=== PATIENT | male | born 1955 | race Caucasian/White ===

== ENCOUNTER 2018-07-11 05:14 | Inpatient (IN) | payer OTHER, SELFPAY ==
[2018-07-05 14:26] VITALS: BP 125/90; PULSE 59; RESP 16; TEMP 36.6; O2SAT 95; BMI 33.2
--- NOTE | 2018-07-05 14:34 | SDCEKG_ITS ---
Test Reason : Blood Pressure : / mmHG Vent. Rate : 059 BPM Atrial Rate : 059 BPM P-R Int : 208 ms QRS Dur : 100 ms QT Int : 408 ms P-R-T Axes : 015 -34 009 degrees QTc Int : 403 ms Poor data quality, interpretation may be adversely affected Sinus bradycardia Left axis deviation Incomplete right bundle branch block Abnormal ECG Confirmed by ARABELLA MAN, BECKIE ([id number]), manuscript editor JAIRO HERRERA ([id number]) on 07/10/2018 8:18:41 AM Referred By: Abad Silver Confirmed By:BECKIE BELL MD
[2018-07-05 15:06] LABS: Absolute Lymphocyte Count 2.27 X10^3/ul (0.83-4.51); Absolute Neutrophil Count 3.6 X10^3/uL (2.0-7.7); Basophil# 0.04 X10^3/uL; Basophil% 0.6 % (0-1); Eosinophil# 0.21 X10^3/uL; Eosinophils% 3.1 % (0-5); Hematocrit 40.8 % (40-54); Hemoglobin 13.5 g/dl (13.0-16.5); Lymphocyte # 2.27 X10^3/ul (4.0); Lymphocyte % 33.4 % (19-41); Mean Corp Hgb Conc 33.1 g/gl (32-36); Mean Corpuscular Hgb 30.3 pg (27.0-32.0); Mean Corpuscular Volume 91.7 fL (80-94); Mean Platelet Vol. 9.7 fl (6.2-12.0); Monocyte# 0.64 X10^3/uL; Monocyte% 9.4 % (0-10); Neutrophil # 3.63 X10^3/uL (2.7-7.7); Neutrophil % 53.4 % (47-70); POSITIVE COUNT NO; POSITIVE DIFFERENTIAL NO; POSITIVE MORPHOLOGY NO; Platelet Count 230 K/mm3 (150-450); RBC Distribution Width CV 14.8 % (11.6-14.6); RBC Distribution Width SD 48.6 fl (35.1-43.9); Red Blood Count 4.45 M/mm3 (4.6-6.2); White Blood Count 6.8 K/mm3 (4.4-11.0)
[2018-07-05 15:13] LABS: International Normalized Ratio 1.1; Prothrombin Time (Protime)PT. 13.8 SECONDS (11.7-14.9)
[2018-07-05 15:14] LABS: Partial Thromboplast Time 30.1 Seconds (24.1-36.2)
[2018-07-05 15:37] LABS: AST(SGOT) 19 U/L (15-37); Alanine Aminotransfer ALT/SGPT 23 U/L (16-61); Albumin, Serum 3.6 g/dL (3.2-5.0); Alkaline Phosphatase 73 U/L (45-117); Anion Gap 9 (5-15); BUN 17 mg/dL (7-18); BUN/Creat Ratio 15.7 RATIO (10-20); Bilirubin, Direct 0.11 mg/dL (0.00-0.30); Chloride 109 mmol/L (98-107); Creatinine, Serum 1.08 mg/dL (0.70-1.30); EST Glomerular Filtration Rate 74 mL/min (>60); Est Glom Filt Rate - Afr Amer 89 mL/min (>60); Estimated Creatinine Clearance 64.82 ml/min; Globulin 3.7 g/dL (2.2-4.2); Glucose 85 mg/dL (74-106); Protein, Total 7.3 g/dL (6.4-8.2); Sodium Level 143 mmol/L (136-145)
--- NOTE | 2018-07-05 17:04 | HP.PCM_ITS ---
History and Physical DATE OF SURGERY: 07/11/2018 SCHEDULED PROCEDURE: left total hip arthroplasty HISTORY OF PRESENT ILLNESS: This is a 63-year-old male who presents today for ongoing pain in the left hip. Pain is being going on for the past 1 year. Pain can reach his high as a 7/10 with activity. Pain is aching and sharp. He has increased pain going up and down stairs, walking any amount of distance, and getting dressed. Patient states the pain does wake him at night. He complains of pain in the left groin and anterior thigh. He does have start up pain. Patient states she has difficult time with activities of daily living including bathing/showering, getting dressed, housework, shopping. He has tripped and stumbled secondary to his left hip. He feels unsafe riding his motorcycle. Patient has tried conservative measures consisting of rest, ice, heat, elevation with no relief in symptoms. Patient has had previous cortisone injection with no relief. Injection was at [facility] on April 02, 2018. Patient has been through physical therapy and home exercises with no relief in symptoms. He has tried emergency care tech without any relief. Patient denies previous surgery on the left hip. He has used a cane on occasion due to the pain. Patient currently denies any chest pain, shortness of breath, fevers chills. Patient has had a previous lumbar fusion in 2018. Patient has medical history pertinent for COPD. He currently denies chest pain, shortness of breath, fevers chills, recent infections. We are obtaining surgical clearance from the primary care physician. After failing conservative measures and discussing treatment options with Dr. Abad Silver, the patient would like to proceed with a left total hip arthroplasty. REVIEW OF SYSTEMS: ROS: Const: Denies change in appetite, fever, hard of hearing, vision problems and weight change CV: Denies chest pain, heart murmur, irregular heartbeat and peripheral vascular disease. Resp: Denies asthma, cough, pneumonia, sleep apnea, shortness of breath, tuberculosis and wheezing. GI: Denies constipation, diarrhea, heartburn, nausea, rectal itching, bloody st ools and vomiting. : Denies incontinence. Musculo: Denies leg swelling, pain, trouble walking and weakness. Skin: Denies Raynaud's, history of shingles and tattoo. Neuro: Denies ambulatory dysfunction, dizziness, numbness/tingling and tremor. Psych: Denies anxiety, depression, insomnia, mental illness and stress. Amandeep/Lymph: Denies anemia, bleeding/bruising tendency and past transfusion. Reviewed, no changes. PAST MEDICAL HISTORY: Advance Care Plan: Other Directive, LIVING WILL Effective Date: 05/17/2018 PMH: Medical Problems: COPD Accidents: LT Shoulder Injury - (06/2014) WORK RELATED Surgical Hx: LT Shoulder Arthoroscopy Lumbar Fusion L3-L4 - (11/2017) [facility] Anesthesia Complications: None Assistive Devices: Glasses Reviewed and updated. SOCIAL HISTORY: SH: Marital: .Occupation: Retired.Work Status: Retired.Hand Dominance: Left- handed. Personal Habits: Smoking: Patient smoking status is unknown.Cigarette Use: Snuff.Smokeless Tobacco: Never Used Smokeless Tobacco.E-Cigarette Use: Never used.Alcohol: Occasionally.Drug Use: Denies Use.Enjoy Exercising: Never Exercises. Reviewed and updated. VITALS: Ht: 66 Wt: 202lb Wt k.627 BMI: 32.6 BP: 122/68 Pulse: 64 Resp: 16 T: 97.5 T: 36.4C ALLERGIES: Adivan - Hallucination Percocet - Hives MEDICATIONS: Ventolin HFA 108 (90 Base) mcg/Act prn wheezi ng, Advair Diskus 250-50 mcg/Dose 1 puff bid PRE-OP EXAM: General appearance:NORMAL Other: Eyes: Conjunctivae and lids: NORMAL Pupils: ERR Ears, Nose, Mouth, and Throat: NORMAL Other: Inspection of lips, teeth and gums: NORMAL Other: Neck: Examination of neck: no masses noted. Respiratory: Assessment of respiratory effort: NORMAL Other: Auscultation of lungs: clear to auscultation no wheezes, rhonchi or rales. Cardiovascular: Auscultation of heart: regular rate and rhythm, no murmurs, gallops or rubs. Exam of carotid arteries: NORMAL Other: Gastrointestinal: Exam of abdomen: soft, nontender, nondistended bowel sounds present. PHYSICAL EXAMINATION: Patient does walk with an antalgic gait. There is no tenderness to palpation over the greater trochanter left hip. Range of motion left hip: Flexion 90, internal rotation 5, external rotation 15. There is increased pain with range of motion of left hip. Patient has a 5 mm shorter leg on the left. Sensation intact to light touch. Neurovascularly intact. IMAGING STUDIES: X-rays of the left hip reveal joint space narrowing with subchondral sclerosis and osteophyte formation consistent with severe osteoarthritis. Screws are present from the L3-L4 fusion. IMPRESSION: 1. Left hip osteoarthritis 2. Chronic obstructive pulmonary disease 3. History of lumbar fusion PLAN: Dr. Abad Silver did discuss and review with the patient all treatment options including surgical versus nonsurgical options. Patient does wish to proceed with the above-stated procedure. Potential risks, benefits, and complications of the procedure were discussed in detail including but not limited to , infection, nerve and blood vessel damage, persistent pain, numbness, tingling, paresthesias, blood clot, pulmonary embolism, and requirement for possible further surgery. The patient expressed full understanding and has no further questions for the doctor. Patient does agree to proceed with the above-stated procedure and has signed the surgery consent form. This dictation was created using voice recognition software. Phonetic and/or grammatical errors may exist.. ___ I have re-examined the patient. There are no clinical changes since date of exam. ___ See progress notes for changes. ___ Dictated on admission Date: Time: Signature:
--- NOTE | 2018-07-06 14:08 | CASEMGMT ---
Call placed to patient's cell phone to discuss discharge needs after upcoming surgery, spoke with , Karina. Patient's plan is to return home, will be taking time off work to help care for patient. Patient plans to set up outpatient physical therapy at [facility], patient is interested in in-home therapy for the first few weeks. can assist with transportation as long as it's outside of her work hours once she returns to work. Bedroom and bathroom are on the 1st level of the home. Patient has a walker, there's a walk-in shower with a built in seat. There are 3 steps into home from garage. Informed that RN-CM will follow up with patient after surgery. Celeste Jensen LPN Clinical Support
[2018-07-11] VITALS (11 sets, daily range): BP systolic 95–145; BP diastolic 60–92; PULSE 59–99; RESP 16–18; TEMP 36–36.8; O2SAT 93–99; BMI 33.2
[2018-07-11] MEDS: Acetaminophen 500 MG Tablet 1000 MG PO ×3 (05:45→21:25)
[2018-07-11] MEDS: morphine SR 15 MG Tablet PO (05:53)
[2018-07-11] MEDS: Celecoxib 200 MG Capsule 400 MG PO (05:53)
[2018-07-11] MEDS: Lactated Ringers 1,000 ML 999 ML IV ×2 (06:15→08:00)
--- NOTE | 2018-07-11 07:12 | RAD_ITS ---
STUDY: X-RAY - LEFT HIP REASON FOR EXAM: Male, 63 years old. Replacement TECHNIQUE: 3 intraoperative views of the hip. COMPARISON: None. FINDINGS: 3 limited intraoperative views of the left hip were performed as the patient has undergone replacement surgery. Components demonstrate anatomic alignment. RAD/Hip 1 view with Pelvis IMPRESSION: Limited intraoperative views of the left hip show no suspicious findings Electronically Signed: Eric Lao MD at 11:28 EST , Service support ,
[2018-07-11] MEDS: Cefazolin 2 GM in 0.9% Normal Saline 100 ML IV (07:25)
--- NOTE | 2018-07-11 08:58 | OP.PCM_ITS ---
Report of Operation Date of Procedure: 07/11/18 Pre-Operative Diagnosis: Left hip primary osteoarthritis Post-Operative Diagnosis: Left hip primary osteoarthritis Surgery/Procedure Performed:: Left direct anterior total hip replacement Description of Surgical Findings:: Stable hip equal leg lengths fruit grading supervisor: Gretchen Martínez Type of Anesthesia:: Spinal Anesthesiologist: Rafa Thakur Special Medications: 2 g Ancef, 1 g TXA at incision, 1 g TXA closure, 10 mg Decadron, joint cocktail (5 mg Duramorph, 30 mL of 0.5% Ropivicaine, 1000 units of epinephrine, 30 mg of Toradol) Estimated Blood Loss (mL): 200 mL Fluids Replaced: 1700 mL crystalloid Description of Procedure: Components used: 1. Accolade 2 [place] femoral stem size 4 127? 2. Jocelyne trident 2 acetabular shell size 54 mm 3. [place] X3 polyethylene E 4. Jocelyne Biolox delta 36mm, 0mm femoral head Brief history operative indications: 63 yo M who failed conservative measures for their hip osteoarthritis. X-rays were consistent with osteoarthritis including joint space narrowing, osteophyte formation and subchondral cysts. Total hip replacement was discussed with the patient with risks and benefits including but not limited to blood loss, DVTs, PEs, neurovascular damage, dislocation, general risks of anesthesia including loss of life. Patient demonstrated an understanding medical clearance is obtained the patient was consented for surgery. Procedure: On the date of procedure the patient's L hip was marked in the preoperative area. Patient was then taken back to the operating room where anesthesia assumed control of the C-spine and airway and administered anesthetic. Patient was transferred to the operating table and placed in the supine position. The hips were placed at the break of the bed and a sacral bump was placed. The L lower extremity was then prepped out in a sterile fashion using chlorhexidine while the surgeon scrubbed. The PA was vital in the positioning of the patient. Upon reentering the room the L lower extremity was draped in the standard orthopedic fashion and the incision was marked. A timeout was called and everyone agreed upon the side, the site, the procedure be performed, antibody given, and patient's identity. At this time incision was made through skin, subcutaneous tissue, and fat down to fascia. The fascia was then incised and the TFL was retracted laterally. A retractor was placed on the lateral border of the femoral neck. Attention was directed to the inferior portion of the approach and all crossing vessels were identified and appropriately coagulated. A retractor was then placed on the medial portion of the femoral neck. The anterior capsule was then cleared of all soft tissue and then H shaped capsulotomy was made. The retractors were then placed inside the capsule. The femoral neck was identified and a cleanup cut was made. At this time a power corkscrew was used to remove the femoral head. Attention was then turned toward the acetabulum where the soft tissues were appropriately retracted and the acetabulum was sequentially reamed to 54 mm. A 54 mm cup was then selected and impacted into place. Acetabular liner was impacted into place and locking mechanism was verified. The position of the acetabular cup was then verified under live fluoroscopy. Attention was then turned to the femur. Soft tissue releases on the medial and lateral femoral neck were appropriately done, the leg was externally rotated and lateralized. A Russell retractor was placed medially and proximally to the greater trochanter this allowed appropriate visualization and exposure of the femoral canal. Rongeour was then used to remove excess lateral bone. A canal finder and entry broach were used to open the proximal canal. Once we verified we were down the femoral canal we subsequently broached up to a size 4 femur. The appropriate neck was placed in the previously selected head was trialed with a 0 mm neck. Traction was pulled and the hip was reduced with internal rotation. Once it was appropriately reduced and stability was checked. There was minimal shuck, equal leg lengths and appropriate stability with hyperextension and external rotation as well as with 90? flexion and internal rotation. Fluoroscopy was then also used to verify the position of the components and leg lengths using the contralateral side for comparison. The trial components were then dislocated the proximal femur was again exposed and the components were removed from the wound. The final components were verified and opened. The wound was copiously irrigated out with normal saline. The acetabulum was checked for any residual debris. The final components were placed and impacted. Traction and internal rotation were again used to reduce the hip. After adequate reduction the hip remained stable with appropriate leg lengths. The final components were once again checked with live fluoroscopy and were found to be satisfactory. The wound was then copiously irrigated with normal saline once more, and hemostasis was obtained. Closure was then done using #1 Vicryl runner to close the fascia. A 2-0 vicryl interuppted sutures were used to close the subcutaneous skin. A 3-0 Monocryl and Steri-Strips were used for final skin closure. A Silverlon dressing was placed. Patient was awakened by anesthesia and transferred to the [facility]. Patient was then transferred to the PACU for recovery. Postoperative plan: Patient will get 24 hours postop antibiotics. Patient will get in-house physical therapy and will be weight-bear as tolerated. Patient will follow up in office in 2 weeks for a wound check and x-rays. Grafts/Implants Used: Jocelyne Accolade 2, Trident 2 - Complications None - Admit VTE Documentation VTE Present on Admission: No VTE Mechan Device Prophylaxis: SCD's, Thigh High RIA Hose VTE Pharm Prophylaxis ordered?: Yes
--- NOTE | 2018-07-11 09:35 | RAD_ITS ---
STUDY: X-RAY - LEFT HIP REASON FOR EXAM: Male, 63 years old. Left hip replacement. TECHNIQUE: 2 views of the hip. COMPARISON: Comparison is made with prior study done earlier today. FINDINGS: The patient is status post left total hip replacement. There is good alignment. Postoperative soft tissue changes. RAD/Hip Min 2 Views (Portable) IMPRESSION: Status post left total hip replacement. There is good alignment. Electronically Signed: Fabricio Do MD at 13:24 EST , Service support ,
[2018-07-11] MEDS: Scopolamine 1mg/72hr Patch 1 PATCH TD (09:43)
[2018-07-11] MEDS: Lactated Ringers 1,000 ML 125 ML IV ×2 (11:25→23:32)
--- NOTE | 2018-07-11 12:15 | CASEMGMT ---
Addendum entered by Kinsey Warren 07/11/18 18:08: Discussed HHC with pt/. They state do not want HHC at this time, stating prefer to do Out-pt therapy instead. Original Note: RN [facility] DIRECTOR CM to room to meet with patient for initial transition planning/care coordination assessment. IZZY ARRIAGA introduced self and role at [facility].? Pt voices understanding and consents to assessment at this time.? Pt resting in bed in no distress at this time.? Pt is A/O at this time and answers all questions appropriately.?? Care providers, pharmacy, and demographics verified/updated at this time. PCP: CRISTOBAL Barnes Specialists: Nadeem Johnson Pharmacy: [facility] Retail on day of discharge, [address] [place]. Insurance: [employer] Prescription Benefit:? Yes Living Will/HPOA:? Has HCPOA, who is his , Karina. Does not have LW and is not interested in further information or talking w/ SW. Living Arrangements: Lives with his . Was independent @ home prior to admission. Transportation: able to provide transportation and denies transportation concerns. DME: ? States has the following DME:? Cane and walker ?Pt states no need for further DME at this time.? Pt wishes to return home and wishes to go to Out-pt therapy @ [facility] in [place]. states pt already has an appt on Monday @ 2 PM. CM to obtain script for Out-pt PT/OT and to give to pt/. States has no concerns with going home at time of discharge.? CM to follow for any further discharge planning/needs.? Pt voices no further concerns/needs at this time.? Advised pt to ask for CM if any further questions/concerns/needs arise.? Voices understanding. PLAN: ?Home with Out-pt therapy PT/OT. Karyn VERDUZCO RN, CM
[2018-07-11] MEDS: traMADol 50 MG Tablet PO (13:28)
[2018-07-11] MEDS: Famotidine 20 MG Tablet PO (13:29)
[2018-07-11] MEDS: Multivitamins,Therapeutic Tablet 1 TABLET PO (13:29)
[2018-07-11] MEDS: Senna/Docusate Sodium 1 Tablet 2 TABLET PO ×2 (13:29→21:26)
--- NOTE | 2018-07-11 14:02 | CPS ---
started by nursing
[2018-07-11] MEDS: Cefazolin 1 GM/50 ML BAG IV ×2 (15:26→23:32)
[2018-07-11] MEDS: Aspirin 81 MG TAB.CHEW PO (15:32)
[2018-07-12 02:55] VITALS: BP 106/65; PULSE 75; RESP 16; TEMP 36.4; O2SAT 94
[2018-07-12] MEDS: Acetaminophen 500 MG Tablet 1000 MG PO ×2 (05:57→13:14)
[2018-07-12 06:26] LABS: Anion Gap 8 (5-15); BUN 21 mg/dL (7-18); BUN/Creat Ratio 17.8 RATIO (10-20); Calcium,Total 8.7 mg/dL (8.5-10.1); Chloride 107 mmol/L (98-107); Creatinine, Serum 1.18 mg/dL (0.70-1.30); EST Glomerular Filtration Rate 67 mL/min (>60); Est Glom Filt Rate - Afr Amer 81 mL/min (>60); Estimated Creatinine Clearance 59.32 ml/min; Glucose 121 mg/dL (74-106); Hematocrit 36.4 % (40-54); Hemoglobin 11.7 g/dl (13.0-16.5); Mean Corp Hgb Conc 32.1 g/gl (32-36); Mean Corpuscular Hgb 30.2 pg (27.0-32.0); Mean Corpuscular Volume 94.1 fL (80-94); Mean Platelet Vol. 10.3 fl (6.2-12.0); Platelet Count 209 K/mm3 (150-450); Potassium 4.4 mmol/L (3.5-5.1); RBC Distribution Width CV 14.7 % (11.6-14.6); RBC Distribution Width SD 47.8 fl (35.1-43.9); Red Blood Count 3.87 M/mm3 (4.6-6.2); Sodium Level 140 mmol/L (136-145); White Blood Count 15.8 K/mm3 (4.4-11.0)
[2018-07-12 06:28] LABS: Scan Indicated on CBC? Y/N NO
[2018-07-12] MEDS: Aspirin 81 MG TAB.CHEW PO (08:51)
[2018-07-12] MEDS: Multivitamins,Therapeutic Tablet 1 TABLET PO (08:52)
[2018-07-12] MEDS: Meloxicam 7.5 MG Tablet PO (08:52)
[2018-07-12] MEDS: Famotidine 20 MG Tablet PO (08:52)
[2018-07-12] MEDS: Senna/Docusate Sodium 1 Tablet 2 TABLET PO (08:52)
[2018-07-12 09:00] VITALS: BP 107/62; PULSE 76; RESP 18; TEMP 36.5; O2SAT 96
--- NOTE | 2018-07-12 09:26 | PCM.PN.ORT ---
Subjective: The patient was sitting in bed with family present upon examination. Patient denies any chest pain, shortness of breath, dizziness, lightheadedness, nausea or vomiting, or calf pain. Pain is controlled on medications. No adverse overnight events. Overall patient is doing very well. He has been up walking and tolerated occupational therapy very well. Patient is wishing to go home today. Objective: Vital signs stable and afebrile. Patient is able to plantarflex and dorsiflex actively. Sensation is intact to light touch to saphenous, sural, superficial and deep peroneal, and tibial distribution. Dressing is clean dry and intact. Negative Homans bilaterally, negative signs and symptoms of DVT. - Physical Exam General: Alert, Oriented x3, Cooperative, No apparent distress Vital Signs Temp Pulse Resp BP Pulse Ox 97.5 F L 75 16 106/65 94 07/12/18 02:55 07/12/18 02:55 07/12/18 02:55 07/12/18 02:55 07/12/18 02:55 Oxygen Delivery Method Room Air Weight: 93.4 kg Body Mass Index (BMI) 33.2 Intake and Output for Last 24 Hours 07/10/18 07/11/18 07/12/18 23:59 23:59 23:59 Intake Total 3053 / 3053 2821 / 2821 Output Total 1000 / 1000 1250 / 1250 Balance 2052 / 2052 1571 / 1571 Laboratory Tests Past 24 Hrs 07/12/18 07/12/18 05:32 05:32 WBC 15.8 H RBC 3.87 L Hgb 11.7 L Hct 36.4 L MCV 94.1 H MCH 30.2 MCHC 32.1 RDW 14.7 H RDW Differential 47.8 H Plt Count 209 MPV 10.3 Sodium 140 Potassium 4.4 Chloride 107 Carbon Dioxide 25.0 Anion Gap 8 BUN 21 H Creatinine 1.18 Estim Creat Clear Calc 59.32 Est GFR (MDRD) Af Amer 81 Est GFR (MDRD) Non-Af 67 BUN/Creatinine Ratio 17.8 Glucose 121 H Calcium 8.7 Medical Necessity - Tobacco Use Smoking Status: Former smoker Tobacco Use: Non-smoker Assessment/Plan 1. S/P left direct anterior total hip arthroplasty POD #1 2. Continue Pain Medications: Tylenol and tramadol 3. DVT Prophylaxis: Aspirin 81 mg twice daily with food for 4 weeks postoperatively 4. PT/OT: Weightbearing as tolerated 5. H & H: 11.7/36.4, asymptomatic 6. Reactive leukocytosis: Currently 15.8, afebrile. Patient did receive Decadron intraoperatively. 7. Encouraged Incentive Spirometry 8. Disposition: Orthopedically stable, plan will be for discharge home today after physical therapy. Prescriptions will be E scribed to [facility]. Patient will follow-up per postop instructions. Patient will be scheduled for outpatient physical therapy.
--- NOTE | 2018-07-12 09:33 | PCM.DC.THR ---
Discharge Diet: No Restrictions Discharge Activity: May Not Drive - while taking narcotic pain medications. May shower in (days): 1 - Turned dressing away from water Ice area for (Minutes): 20 - Every 1-2 hours while awake Weight Bearing Status: Weight bearing as tolerated Elevate: Operative Extremity Additional Activity Instructions:: Wear elastic stockings for 2 weeks. DO NOT use alcohol with narcotic pain medication. DO NOT make important decisions while taking narcotic medication. If you have problems with taking your medication (rash, itching, nausea, etc.) call the office at once. Call your doctor if your incision/area has: Increased Pain/ Swelling, Increased Redness, Foul Smelling Discharge Call your doctor if you observe: Fever of 101 or Higher Remove Dressing in (days):: 4 - Okay to remove dressing on July 16, 2018 Additional Instructions: Follow [facility] postop instructions Do not take any other nonsteroidal anti-inflammatories while taking meloxicam/Mobic Allergies/Adverse Reactions: Allergies oxycodone [From Percocet] Allergy (Verified 07/05/18 14:13) Hives lorazepam [From Ativan] Adverse Reaction (Verified 07/05/18 14:13) HALLUCINATIONS Medications to take at Discharge Albuterol Inhaler [Ventolin Hfa] 1 - 2 puff INHALATION Q4H PRN PRN 07/05/18 Fluticasone/Salmeterol [Advair 250/50 Mcg Diskus] 1 puff INHALATION BID 07/05/18 Multivitamin [Multiple Vitamins] 1 each PO DAILY 07/05/18 Acetaminophen [Tylenol] 1,000 mg PO Q8 #90 tablet 07/12/18 Aspirin [Aspirin, Baby] 81 mg PO BIDCM #60 tab.chew 07/12/18 Famotidine [Pepcid] 20 mg PO DAILY #30 tablet 07/12/18 Meloxicam [Mobic] 7.5 mg PO BID #60 tablet 07/12/18 Senna/Docusate Sodium [Senokot-S] 2 tablet PO BID #20 tablet 07/12/18 traMADol [Ultram] 50 - 100 mg PO Q6H PRN PRN 5 Days #40 tablet 07/12/18 The following prescriptions were given: traMADol [Ultram] 50 - 100 mg PO Q6H PRN PRN 5 Days #40 tablet PRN Reason: Mod-Severe Pain (4-03/14) Acetaminophen [Tylenol] 1,000 mg PO Q8 #90 tablet Famotidine [Pepcid] 20 mg PO DAILY #30 tablet Aspirin [Aspirin, Baby] 81 mg PO BIDCM #60 tab.chew Meloxicam [Mobic] 7.5 mg PO BID #60 tablet Senna/Docusate Sodium [Senokot-S] 2 tablet PO BID #20 tablet Primary Care Physician: Evelyn Pride PA-C [Primary Care Provider] - Test Results: Test results from this visit will be discussed in further detail at your follow-up appointment, if applicable. Please Follow Up With: Yefri Pretty PA-C When: 07/25/18 @ 9:30 am Please Follow Up With: Physical Therapy When: will schedule prior to discharge
[2018-07-12 13:15] VITALS: BP 113/72; PULSE 88; RESP 18; TEMP 36.7; O2SAT 97
== END 2018-07-12 13:32 | disposition home or self-care (01) | DRG 470 ==
PROVIDERS: Anesthesiology; Admitting Provider Specialist; Family Provider Family Medicine; PCP Family Medicine; Referring Provider Specialist; Visit Provider Specialist
PROC: 0SRB04A Replacement of Left Hip Joint with Ceramic on Polyethylene Synthetic Substitute, Uncemented, Open Approach (ICD-10-PCS; CPT 27284; principal; 2018-07-11 07:10)
DX: M16.12 Unilateral primary osteoarthritis, left hip (principal); J44.9 Chronic obstructive pulmonary disease, unspecified; Z98.1 Arthrodesis status
CPT/HCPCS: 36415; 73501; 73502; 76000; 80048; 80076; 85025; 85027; 85610; 85730; 87081; 93005; 97110; 97162; 97166; 97530; 99251; 99406; C1776; J7120; G0463

== ENCOUNTER 2019-01-15 12:35 | Emergency (ER) | payer OTHER, SELFPAY ==
[2018-07-11 11:04] VITALS: BMI 33.2
[2019-01-15 12:36] VITALS: BP 128/74; PULSE 81; RESP 15; TEMP 36.6; O2SAT 91; BMI 32.8
[2019-01-15 12:40] VITALS: TEMP 36.6; BMI 32.8
[2019-01-15 13:50] LABS: Absolute Lymphocyte Count 2.85 X10^3/uL (0.83-4.51); Absolute Neutrophil Count 2.8 X10^3/uL (2.0-7.7); Basophil# 0.04 X10^3/uL; Basophil% 0.6 % (0-1); Eosinophil# 0.22 X10^3/uL; Eosinophils% 3.5 % (0-5); Hematocrit 43.9 % (40-54); Lymphocyte # 2.85 X10^3/ul (4.0); Lymphocyte % 45.5 % (19-41); Mean Corp Hgb Conc 34.2 g/dL (32-36); Mean Corpuscular Volume 90.7 fL (80-94); Mean Platelet Vol. 9.1 fl (6.2-12.0); Monocyte# 0.35 X10^3/uL; Monocyte% 5.6 % (0-10); NRBC Flagged by Analyzer 0 % (0-5); Neutrophil # 2.79 X10^3/uL (2.7-7.7); Neutrophil % 44.6 % (47-70); Platelet Count 190 K/mm3 (150-450); RBC Distribution Width CV 13.8 % (11.6-14.6); RBC Distribution Width SD 46.1 fl (35.1-43.9); Red Blood Count 4.84 M/mm3 (4.6-6.2); White Blood Count 6.3 K/mm3 (4.4-11.0)
[2019-01-15 14:03] LABS: ALB/GLOB Ratio 0.9 RATIO (0.9-2.4); AST(SGOT) 34 U/L (15-37); Alanine Aminotransfer ALT/SGPT 34 U/L (16-61); Albumin, Serum 3.6 g/dL (3.2-5.0); Alkaline Phosphatase 73 U/L (45-117); Anion Gap 9 (5-15); BUN 14 mg/dL (7-18); BUN/Creat Ratio 12.5 RATIO (10-20); Calcium,Total 8.8 mg/dL (8.5-10.1); Chloride 104 mmol/L (98-107); Creatinine, Serum 1.12 mg/dL (0.70-1.30); EST Glomerular Filtration Rate 71 mL/min (>60); Est Glom Filt Rate - Afr Amer 86 mL/min (>60); Estimated Creatinine Clearance 64.76 ml/min; Globulin 4.2 g/dL (2.2-4.2); Glucose 93 mg/dL (74-106); Lipase 100 U/L (73-393); Protein, Total 7.8 g/dL (6.4-8.2); Sodium Level 141 mmol/L (136-145)
--- NOTE | 2019-01-15 14:26 | ED.RN ---
LAB CALLS WITH CRITICAL RESULT, ETOH 397, DR. WALKER MADE AWARE.
--- NOTE | 2019-01-15 14:34 | ED.VISSUMM ---
- ER Visit Summary Date of Service: 01/15/19 Chief Complaint: Alcohol intoxication History of Present Illness: The patient is a 63 M who presents the emergency department in the company of his sister requesting alcohol detox. Patient states he is currently drunk. He has been drinking vodka all day. His last drink was about 1.5 hours before arrival. History came by the house to check on him and he told her that he was tired of drinking and wanted to seek rehab. So she brought him to the emergency department. He is done rehab before. He states there is no particular reason why he wanted to seek rehab today. The sister is requesting we give him a shot that makes him stop drinking. Physical Examination: Afebrile vital signs stable Gen: Well-nourished well-developed Head: Normocephalic atraumatic Eyes: Perrl EOMI ENT: TMs clear no rhinorrhea moist mucous membranes Neck: Supple no lymphadenopathy no JVD nontender CVS: Regular rate rhythm no murmurs normal S1-S2 Respiratory: No distress clear to auscultation bilaterally chest nontender Abdomen: Soft nontender nondistended normal bowel sounds no masses Back: Nontender Extremity: Nontender no edema Skin: Normal color no rash Neuro: alert he is clearly intoxicated. He has slurred speech. He is unsteady on his feet. He does however laugh at jokes and knows where he is at. Psych: No suicidal or homicidal ideation Test Results: Alcohol level was 397. Emergency Department Course and Treatment: She was able to get up and walk to the bathroom. He has been sleeping. Woke the patient up and informed him of his alcohol level and that will be 12 to 15 hours before he is sober enough for us to ask him if he truly wants rehab. I offered to let him stay here until that time he would like to go home and sleep is soft and then come back when he is sober. We will wait for his sister to come back to give him a ride. Impression: 1. Acute alcohol intoxication This note was generated with [employer] dictation software. It may contain incorrect words, spelling, and punctuation that were not noted in review of the chart prior to signing ED Disposition - Plan for ED Patient: Disposition: Home or Assisted Living Instructions: Alcohol Intoxication Referrals: Hamlet,Evelyn, PA-C [Primary Care Provider] - As soon as possible
[2019-01-15 15:18] VITALS: RESP 16; O2SAT 97
[2019-01-15 15:23] LABS: Amphetamine Urine VISTA NEGATIVE (<1000 ng/mL); Barbiturate Urine VISTA NEGATIVE (< 200 ng/mL); Benzodiazepine Urine VISTA NEGATIVE (< 200 ng/mL); Cocaine Urine VISTA NEGATIVE (< 300 ng/mL); Ecstacy Urine VISTA NEGATIVE (< 500 ng/mL); Methadone Urine VISTA NEGATIVE (< 300 ng/mL); PCP Urine VISTA NEGATIVE (< 25 ng/mL); THC Urine VISTA NEGATIVE (< 50 ng/mL); Vista UDS pH Range 6
== END 2019-01-15 18:42 | disposition home or self-care (01) ==
PROVIDERS: Emergency Provider Emergency Medicine; Family Provider Family Medicine; PCP Family Medicine
DX: F10.129 Alcohol abuse with intoxication, unspecified (principal); Y90.8 Blood alcohol level of 240 mg/100 ml or more; K21.9 Gastro-esophageal reflux disease without esophagitis; Z79.82 Long term (current) use of aspirin; Z79.899 Other long term (current) drug therapy; Z87.891 Personal history of nicotine dependence
CPT/HCPCS: 80053; 80307; 80320; 83690; 85025; 99284; A4216; G0480

== ENCOUNTER 2019-06-14 11:10 | Emergency (ER) | payer OTHER, SELFPAY ==
[2019-06-14 11:11] VITALS: BP 152/114; PULSE 95; RESP 16; TEMP 36.8; O2SAT 96; BMI 33.0
[2019-06-14 11:37] VITALS: BP 140/99
[2019-06-14] MEDS: 0.9% Normal Saline 1,000 ML 1000 ML IV (12:21)
[2019-06-14] MEDS: Ondansetron 4 MG/2 ML Vial IV (12:24)
[2019-06-14 12:39] LABS: Absolute Lymphocyte Count 1.69 X10^3/uL (0.83-4.51); Absolute Neutrophil Count 4.7 X10^3/uL (2.0-7.7); Basophil# 0.07 X10^3/uL; Eosinophil# 0.07 X10^3/uL; Hematocrit 41.5 % (40-54); Hemoglobin 14.1 g/dL (13.0-16.5); Lymphocyte # 1.69 X10^3/ul (4.0); Lymphocyte % 23.6 % (19-41); Mean Corpuscular Hgb 30.7 pg (27.0-32.0); Mean Corpuscular Volume 90.2 fL (80-94); Mean Platelet Vol. 9.2 fl (6.2-12.0); Monocyte# 0.59 X10^3/uL; Monocyte% 8.2 % (0-10); NRBC Flagged by Analyzer 0 % (0-5); Neutrophil # 4.72 X10^3/uL (2.7-7.7); Neutrophil % 65.9 % (47-70); Platelet Count 218 K/mm3 (150-450); RBC Distribution Width CV 13.6 % (11.6-14.6); RBC Distribution Width SD 44.9 fl (35.1-43.9); White Blood Count 7.2 K/mm3 (4.4-11.0)
[2019-06-14 12:49] LABS: ALB/GLOB Ratio 0.8 RATIO (0.9-2.4); AST(SGOT) 33 U/L (15-37); Alanine Aminotransfer ALT/SGPT 41 U/L (16-61); Albumin, Serum 3.4 g/dL (3.2-5.0); Alkaline Phosphatase 94 U/L (45-117); Anion Gap 9 (5-15); BUN 9 mg/dL (7-18); BUN/Creat Ratio 9.3 RATIO (10-20); Calcium,Total 8.8 mg/dL (8.5-10.1); Chloride 101 mmol/L (98-107); Creatinine, Serum 0.97 mg/dL (0.70-1.30); EST Glomerular Filtration Rate 84 mL/min (>60); Est Glom Filt Rate - Afr Amer 101 mL/min (>60); Estimated Creatinine Clearance 71.25 ml/min; Glucose 89 mg/dL (74-106); Potassium 3.5 mmol/L (3.5-5.1); Protein, Total 7.4 g/dL (6.4-8.2); Sodium Level 137 mmol/L (136-145)
--- NOTE | 2019-06-14 13:24 | ED.VISSUMM ---
- ER Visit Summary Date of Service: 06/14/19 Chief Complaint: Alcohol withdrawal History of Present Illness: The patient is a 64 M who does not have a primary care physician. He reports that he was in [facility] from May 27 to June 07. After being discharged he went on a alcohol binge and had had a gallon of vodka in the 5 subsequent days. He reports that his last heavy drinking was 2 days ago. He began having alcohol withdrawal symptoms yesterday. He has been tapering and taking a shot every 3-4 hours since then. He reports that he feels shaky, nauseated, has dry heaves, and has had diarrhea since yesterday. No blood in his stools. Patient reports he had similar symptoms with alcohol withdrawal in the past. Patient reports that he had gone on a binge that required him to go to [facility] again in May. Prior to that he had been sober for 4 months. Physical Examination: Vitals: Stable. Afebrile. General: Well-nourished and well-developed. Head: Normocephalic atraumatic. Neck: Supple, no lymphadenopathy. No JVD. Nontender. Cardiovascular: Regular rate and rhythm. No murmurs. Respiratory: No respiratory distress. Clear to auscultation bilaterally. Abdominal: Soft, nontender, nondistended, normal bowel sounds. No guarding, rebound, or peritoneal signs. Back: Nontender. Extremities: Nontender, no edema. Skin: Normal color, no rash. Neurologic: Alert and oriented ?3. Cranial nerves II through XII are intact. Normal strength and sensation. Psych: Normal affect. Test Results: CBC is normal. Chem-7 is normal. LFTs are normal. Alcohol is 22. Emergency Department Course and Treatment: Patient was given a dose of Zofran IV. He reports that phenobarbital is always what is helped him in the past with his withdrawal. He is given a dose p.o. He is resting comfortably. Treatment Plan: I had a prolonged discussion with the patient that as a one-week binge I do not think he will have life-threatening withdrawal. He would like to go home. He will be discharged with phenobarbital for the next 3 days. Instructed to follow-up with refuge in [place] which is the inpatient rehab that he would like to go to. He does understand that if he is worsening or has increasing symptoms that he needs to return the emergency department. Disposition: To home in improved and stable condition. Impression: 1. Alcohol abuse. This note was generated with Teamisto dictation software. It may contain incorrect words, spelling, and punctuation that were not noted in review of the chart prior to signing ED Disposition - Plan for ED Patient: Disposition: Home or Assisted Living Instructions: Alcohol Withdrawal Prescriptions: Phenobarbital 32.4 mg PO TID #18 tab Prescription Printed Ondansetron [Zofran Odt] 4 mg PO Q8H PRN PRN #10 tab PRN Reason: Nausea Prescription Printed Referrals: [facility] [STAFF PHYSICIAN] - Andres Lebron MD [STAFF PHYSICIAN] - As Needed
[2019-06-14 13:41] VITALS: BP 155/102; PULSE 72; RESP 16; O2SAT 96
== END 2019-06-14 13:42 | disposition home or self-care (01) ==
PROVIDERS: Emergency Provider Emergency Medicine
DX: F10.239 Alcohol dependence with withdrawal, unspecified (principal); Y90.1 Blood alcohol level of 20-39 mg/100 ml; I10 Essential (primary) hypertension; Z87.891 Personal history of nicotine dependence
CPT/HCPCS: 80053; 80320; 85025; 96361; 96374; 99284; J7030; G0480; J2405

== ENCOUNTER 2019-07-31 11:26 | Inpatient (IN) | payer OTHER, SELFPAY ==
[2019-07-31] VITALS (7 sets, daily range): BP systolic 109–152; BP diastolic 71–100; PULSE 81–97; RESP 14–20; TEMP 36.6–36.8; O2SAT 93–98; BMI 30.5
--- NOTE | 2019-07-31 11:37 | CM.ED ---
SOCIAL WORK RECEIVED CALL FROM ERIC WITH [facility]. UPDATED ON PATIENT WHO IS REQUESTING DETOX FROM ALCOHOL. ERIC TO FAX OVER ASSESSMENT. STAFF UPDATED. Ovi GARCIA, MULTIMEDIA PROGRAMMER, WINCH TRUCK OPERATOR.
--- NOTE | 2019-07-31 12:17 | ED.VIS.GEN ---
History of Present Illness Chief Complaint: ETOH Intox Informant: Patient, Family Onset: Today Narrative: Patient is a 64-year-old male with history of alcohol abuse presenting for alcohol detox. Patient states he has been drinking for the past 32 days. He drinks 1/5 of 80 proof vodka daily. He states his last drink was at 5 AM this morning. He called 180 to be evaluated for detox. Patient does have a history of tremors but does not think he is ever been in DTs. He states phenobarbital is what usually works for him. He states he does have an itching sensation on his skin. He denies any other complaints at this time. Past Medical History - Allergies and Home Meds Allergies/Adverse Reactions: Allergies oxycodone [From Percocet] Allergy (Verified 07/31/19 11:27) Hives lorazepam [From Ativan] Adverse Reaction (Verified 07/31/19 11:27) HALLUCINATIONS Past Medical History: - - Alcohol abuse, COPD Surgical History: noncontributory Smoking Status: Former smoker Alcohol: Heavy Drugs: None Review of Systems General: Denies: Chills, Fever, Sweats Eyes: Denies: Visual changes - bilaterally, Diplopia ENT: Denies: Rhinorrhea, Sore throat Cardiovascular: Denies: Chest pain, Palpitations Respiratory: Denies: Dyspnea, Cough, Dyspnea on exertion Gastrointestinal: Denies: Abdominal pain, Nausea, Vomiting, Diarrhea, Melena, Hematochezia Genitourinary: Denies: Dysuria, Hematuria, Frequency Musculoskeletal: Denies: Back pain, Extremity Pain Skin: Reports: - - Itching, bug crawling sensation on skin. Denies: Rash, Wounds Neurological: Denies: Headache, Weakness, Numbness Psych: Reports: - - Alcohol dependency Physical Exam Vital Signs/Narrative: Vital Signs Temp Pulse Resp BP Pulse Ox 07/31/19 11:27 98.2 F 97 19 H 152/100 H 98 Inital Vital Signs reviewed: Yes General: Well nourished, Well developed, No Acute Distress Head: Normocephalic, Atraumatic Eyes: Perrl, EOMI, - - No nystagmus ENT: Moist mucous membranes, No rhinorrhea, TM's clear Neck: Supple, Nontender Cardiovascular: Regular rate, Regular rhythm, No murmurs Respiratory: No distress, CTA bilaterally, Chest nontender Abdomen: Soft, Nontender, Nondistended, Normal bowel sounds Back: Nontender, Normal Inspection Extremities: Nontender, No edema Skin: Normal color, No rash Neurological: Alert, Oriented x3, Cranial nerves II-XII grossly intact, Normal Strength, Normal Sensation Psychological: Normal affect, Normal Mood Diagnostic/Tx/Re-eval Laboratory Data 07/31/19 07/31/19 07/31/19 12:29 12:29 12:29 WBC 5.9 RBC 4.89 Hgb 14.6 Hct 43.1 MCV 88.1 MCH 29.9 MCHC 33.9 RDW Std Deviation 44.3 H RDW Coeff of Klarissa 13.9 Plt Count 127 L MPV 9.4 Immature Gran % (Auto) 0.200 Neut % (Auto) 54.9 Lymph % (Auto) 34.2 [place] % (Auto) 7.8 Eos % (Auto) 2.2 Baso % (Auto) 0.7 Absolute Neuts (auto) 3.3 Absolute Lymphs (auto) 2.03 Nucleated RBC % 0 Sodium 139 Potassium 4.1 Chloride 102 Carbon Dioxide 27.0 Anion Gap 10 BUN 18 Creatinine 1.09 Estim Creat Clear Calc 65.70 Est GFR (MDRD) Af Amer 88 Est GFR (MDRD) Non-Af 73 BUN/Creatinine Ratio 16.5 Glucose 91 Calcium 9.1 Phosphorus Magnesium Urine Opiates Screen Urine Methadone Screen Ur Barbiturates Screen Ur Phencyclidine Scrn Ur Amphetamines Screen U Methamphetamin-MDMA U Benzodiazepines Scrn Urine Cocaine Screen U Cannabinoids Screen Ur Drug Screen Comment Ethyl Alcohol 288.0 07/31/19 07/31/19 12:29 13:50 WBC RBC Hgb Hct MCV MCH MCHC RDW Std Deviation RDW Coeff of Klarissa Plt Count MPV Immature Gran % (Auto) Neut % (Auto) Lymph % (Auto) [place] % (Auto) Eos % (Auto) Baso % (Auto) Absolute Neuts (auto) Absolute Lymphs (auto) Nucleated RBC % Sodium Potassium Chloride Carbon Dioxide Anion Gap BUN Creatinine Estim Creat Clear Calc Est GFR (MDRD) Af Amer Est GFR (MDRD) Non-Af BUN/Creatinine Ratio Glucose Calcium Phosphorus 2.4 L Magnesium 2.2 Urine Opiates Screen NEGATIVE Urine Methadone Screen NEGATIVE Ur Barbiturates Screen NEGATIVE Ur Phencyclidine Scrn NEGATIVE Ur Amphetamines Screen NEGATIVE U Methamphetamin-MDMA NEGATIVE U Benzodiazepines Scrn NEGATIVE Urine Cocaine Screen NEGATIVE U Cannabinoids Screen NEGATIVE Ur Drug Screen Comment Ethyl Alcohol - Medical Decision Making Patient is evaluated for alcohol detox. Patient's last drink was this morning. He does not appear to be actively withdrawing. His alcohol is 288. Patient does feel mildly tremulous however. Basic screening labs are obtained and patient is admitted to the medicine service for detox. He is agreeable this plan. He stable for the general medical floor at time of disposition. He started on phenobarbital protocol per admitting physician. ED Disposition - Plan for ED Patient: Disposition: Acute Care Hospital [facility] Diagnosis: Alcohol abuse with physiological dependence
[2019-07-31 12:40] LABS: Absolute Lymphocyte Count 2.03 X10^3/uL (0.83-4.51); Absolute Neutrophil Count 3.3 X10^3/uL (2.0-7.7); Basophil# 0.04 X10^3/uL; Basophil% 0.7 % (0-1); Eosinophil# 0.13 X10^3/uL; Eosinophils% 2.2 % (0-5); Hematocrit 43.1 % (40-54); Hemoglobin 14.6 g/dL (13.0-16.5); Lymphocyte # 2.03 X10^3/ul (4.0); Lymphocyte % 34.2 % (19-41); Mean Corp Hgb Conc 33.9 g/dL (32-36); Mean Corpuscular Hgb 29.9 pg (27.0-32.0); Mean Corpuscular Volume 88.1 fL (80-94); Mean Platelet Vol. 9.4 fl (6.2-12.0); Monocyte# 0.46 X10^3/uL; Monocyte% 7.8 % (0-10); NRBC Flagged by Analyzer 0 % (0-5); Neutrophil # 3.26 X10^3/uL (2.7-7.7); Neutrophil % 54.9 % (47-70); Platelet Count 127 K/mm3 (150-450); RBC Distribution Width CV 13.9 % (11.6-14.6); RBC Distribution Width SD 44.3 fl (35.1-43.9); Red Blood Count 4.89 M/mm3 (4.6-6.2); White Blood Count 5.9 K/mm3 (4.4-11.0)
--- NOTE | 2019-07-31 12:40 | CM.ED ---
SOCIAL WORK INFORMANT: DR. EPSTEIN REASON FOR REFERRAL: ETOH DETOX MET WITH PATIENT AND FAMILY IN ROOM. INTRODUCED ROLE AND REASON FOR REFERRAL. PATIENT HAS COMPLETED ASSESSMENT WITH [facility] AND PRESENTS TO EMERGENCY DEPARTMENT FOR ALCOHOL DETOX WITH PLAN TO FOLLOW WITH [facility] UPON DISCHARGE. RECEIVED COPY OF ASSESSMENT FROM ERIC STAFFORD WITH [facility]. ASSESSMENT ADDED TO CHART. DR. EPSTEIN COMPLETING WORK UP AT THIS TIME. WILL CONTINUE TO FOLLOW AND ASSIST NEEDED. Ovi GARCIA, STEEL DIE PRESS SET UP OPERATOR, JEWEL SAWYER.
[2019-07-31 12:52] LABS: Anion Gap 10 (5-15); BUN 18 mg/dL (7-18); BUN/Creat Ratio 16.5 RATIO (10-20); Calcium,Total 9.1 mg/dL (8.5-10.1); Chloride 102 mmol/L (98-107); Creatinine, Serum 1.09 mg/dL (0.70-1.30); EST Glomerular Filtration Rate 73 mL/min (>60); Est Glom Filt Rate - Afr Amer 88 mL/min (>60); Glucose 91 mg/dL (74-106); Potassium 4.1 mmol/L (3.5-5.1); Sodium Level 139 mmol/L (136-145)
[2019-07-31 14:19] LABS: Amphetamine Urine VISTA NEGATIVE (<1000 ng/mL); Barbiturate Urine VISTA NEGATIVE (< 200 ng/mL); Benzodiazepine Urine VISTA NEGATIVE (< 200 ng/mL); Cocaine Urine VISTA NEGATIVE (< 300 ng/mL); Ecstacy Urine VISTA NEGATIVE (< 500 ng/mL); Methadone Urine VISTA NEGATIVE (< 300 ng/mL); PCP Urine VISTA NEGATIVE (< 25 ng/mL); THC Urine VISTA NEGATIVE (< 50 ng/mL); Vista UDS pH Range 6
--- NOTE | 2019-07-31 14:24 | PCM.HP.STD ---
Problem List (1) Alcohol withdrawal Status: Acute Qualifiers: Complication of substance-induced condition: with unspecified complication Qualified Code(s): F10.239 - Alcohol dependence with withdrawal, unspecified (2) COPD (chronic obstructive pulmonary disease) Status: Chronic Qualifiers: COPD type: unspecified COPD Qualified Code(s): J44.9 - Chronic obstructive pulmonary disease, unspecified (3) Former tobacco use Status: Chronic History of Present Illness Date of Admission: 07/31/19 Chief Complaint: Acute EtOH Withdrawal The patient is a 64 y/o M w/ PMHx: EtOH Abuse usually 06/09 90 proof vodka daily, Former Tobacco use, Chronic COPD who presents to the [facility] ED on 07/31/19 with history of attempted acute alcohol withdrawal programs now x8, notes [place] x7 and [place] x1 recently sober for 6 months however he started drinking approximately 1 month prior to current presentation with last alcohol intake 8 AM on day of ED presentation with onset of alcohol withdrawal symptoms starting later in the morning with reported onset of nausea, tremors, agitation, tactile disturbances. Patient interested in attaining sober status. He denies any prior history of delirium tremens. In the ED does have significant tremors and tactile disturbances. Given the ED included T 98.2, heart 97, BP 152/100, respiratory rate 19, 98% on room air, CBC with WBC 5.9, hemoglobin 14.6, platelet 127 with no market shift, BMP not marked appearing, urine drug screen negative, ethyl alcohol level 288 but patient coherent, ambulating without issue and completely oriented. Past Medical History Past Medical History (Chronic Problems): Chronic Problems COPD (chronic obstructive pulmonary disease) (Chronic) Former tobacco use (Chronic) Allergies oxycodone [From Percocet] Allergy (Verified 07/31/19 11:27) Hives lorazepam [From Ativan] Adverse Reaction (Verified 07/31/19 11:27) HALLUCINATIONS Home Medications: Ambulatory Orders Medication Instructions Recorded NK 07/31/19 Surgical History: - - Left total hip replacement, low back surgery, left shoulder arthroscopic surgery. Psychiatric History: No pertinent psych hx Lives: With Family - She currently resides with his sister, . Smoking Status: Former smoker - Patient quit cigarette tobacco usage several years prior with prior to this up to 2.5 pack/day cigarette tobacco usage. Tobacco Use: Non-smoker Alcohol: Heavy - At least 1/5 90 proof vodka daily. Drugs: None - *Family History Maternal History Items: - - Patient notes a maternal family history of pulmonary disease. Paternal History Items: - - Patient notes paternal family history of cancer, throat. Review of Systems Constitutional: Reports: Malaise, Weakness, Fatigue. Denies: Anorexia, Chills, Fever, Weight Change HEENT: Denies: Head Aches, Sinus Congestion, Sinus Drainage Cardiovascular: Denies: Chest Pain, Palpitations Respiratory: Denies: Cough, Shortness of breath at rest, Sputum production Gastrointestinal: Reports: Nausea. Denies: Abdominal Pain, Vomiting Genitourinary: Denies: Dysuria Musculoskeletal: Reports: Joint Pain. Denies: Joint Tenderness Skin: Denies: Rash, Wounds Neurological: Reports: Tingling, Tremor. Denies: Focal weakness, Numbness Psychiatric: Denies: Anxiety, Depression, Homicidal Ideations, Suicidal Ideations Hematologic/ Lymphatic: Denies: Easy Bruising, Easy Bleeding VTE Information - Inpt Only VTE Present on Admission: No VTE Mechan Device Prophylaxis: None VTE Pharm Prophylaxis ordered?: No Reason prophylaxis not ordered:: Treatment Not Indicated Patient Problems: Active and Suspected Problems Alcohol withdrawal (Acute) Subjective: Seated upright in the ED bed, fatigued appearing, mildly agitated, evidence of significant tremors, admits to mild nausea and ongoing tactile disturbances. Objective: Physical Examination: General: awake, alert, oriented x 3 and cooperative, seated upright in the ED bed, fatigued, mildly agitated, evident tremors. Skin: normal color, turgor, no icterus, cyanosis. HEENT: AT/NC, EOMI, PERRLA, mildly dry MM, no carotid bruits or JVD noted. Lungs: CTA bilaterally, moderate effort, mild decrease BL bases, no rales, ronchi or wheezing. Heart: Mildly tachycardic with regular rhythm; no gallop, rub audible. Abdomen: soft, NTTP, ND, normal BS, no market HM. Extremities: no cyanosis, clubbing, or edema. Neurological: patient awake, alert, oriented x 3; cognitive function intact; pupils equally reactive to light and accomodation; cranial nerves II-XII grossly normal, moving all 4 extremities, no focal deficits, strength moderately globally Renetta secondary to acute presentation, mild tremors evident, admits to ongoing mild tactile disturbances. Psychiatric: affect appears mildly agitated, no acute evidence of depressive or anxiety feelings. - Physical Exam Vitals/I&O's: Vital Signs Temp Pulse Resp BP Pulse Ox 98.2 F 95 20 H 109/71 93 07/31/19 11:27 07/31/19 14:00 07/31/19 14:00 07/31/19 14:00 07/31/19 14:00 Oxygen Delivery Method Room Air Weight: 195 lb Body Mass Index (BMI) 30.5 Laboratory Results 07/31/19 12:29: WBC 5.9, RBC 4.89, Hgb 14.6, Hct 43.1, MCV 88.1, MCH 29.9, MCHC 33.9, RDW Std Deviation 44.3 H, RDW Coeff of Klarissa 13.9, Plt Count 127 L, MPV 9.4, Immature Gran % (Auto) 0.200, Neut % (Auto) 54.9, Lymph % (Auto) 34.2, [place] % (Auto) 7.8, Eos % (Auto) 2.2, Baso % (Auto) 0.7, Absolute Neuts (auto) 3.3, Absolute Lymphs (auto) 2.03, Nucleated RBC % 0 07/31/19 12:29: Sodium 139, Potassium 4.1, Chloride 102, Carbon Dioxide 27.0, Anion Gap 10, BUN 18, Creatinine 1.09, Estim Creat Clear Calc 65.70, Est GFR (MDRD) Af Amer 88, Est GFR (MDRD) Non-Af 73, BUN/Creatinine Ratio 16.5, Glucose 91, Calcium 9.1 07/31/19 12:29: Ethyl Alcohol 288.0 07/31/19 13:50: Urine Opiates Screen NEGATIVE, Urine Methadone Screen NEGATIVE, Ur Barbiturates Screen NEGATIVE, Ur Phencyclidine Scrn NEGATIVE, Ur Amphetamines Screen NEGATIVE, U Methamphetamin-MDMA NEGATIVE, U Benzodiazepines Scrn NEGATIVE, Urine Cocaine Screen NEGATIVE, U Cannabinoids Screen NEGATIVE, Ur Drug Screen Comment Assessment/Plan All Active Problems Alcohol withdrawal (Acute) The patient is a 64 y/o M w/ PMHx: EtOH Abuse usually 06/09 90 proof vodka daily, Former Tobacco use, Chronic COPD who presents to the [facility] ED on 07/31/19 with history of attempted acute alcohol withdrawal programs now x8, notes [place] x7 and [place] x1 recently sober for 6 months however he started drinking approximately 1 month prior to current presentation with last alcohol intake 8 AM on day of ED presentation with onset of alcohol withdrawal symptoms. 1. Acute EtOH Withdrawal: Will admit to [facility], routine labs obtained in the ED, urine drug screen negative, ethyl alcohol level 388, will initiate phenobarbital tapering regimen, scheduled gabapentin for seizure prophylaxis, PRN Bentyl, Vistaril, IV fluids, IV antiemetics, Tylenol as needed for pain, trazodone nightly for sleep. Will consult case management as well as planned 180 assistance for transition to next level of rehabilitation care. Mag, phos pending. 2. Thrombocytopenia, likely chronic: Admission platelet 127, likely secondary to alcohol abuse. 3. Elevated BP without hypertensive diagnosis: Significantly elevated BP upon ED presentation, possibly associate with #1, continue to monitor and if appropriate add oral regimen. 4. Chronic COPD: Not on any regimen, encourage follow-up with pulmonary function testing with his PCP, will have PRN albuterol, encourage head of bed, I-S. 5. GERD: Maintained on famotidine. 6. DVT prophylaxis: Low risk, encourage ambulation. Code Visit Inpatient E&M: 08284 Init Hosp L3
--- NOTE | 2019-07-31 15:04 | NURSING ---
206 WHITE ETOH WITHDRAWAL
[2019-07-31] MEDS: Lactated Ringers 1,000 ML 125 ML IV (16:01)
[2019-07-31 16:04] LABS: Magnesium 2.2 mg/dL (1.6-2.6); Phosphorus 2.4 mg/dL (2.5-4.9)
[2019-07-31] MEDS: Phenobarbital 32.4 MG Tablet 97.2 MG PO ×3 (16:34→23:58)
[2019-07-31] MEDS: Thiamine Hydrochloride 100 MG Tablet PO (16:39)
[2019-07-31] MEDS: Folic Acid 1 MG Tablet PO (16:39)
[2019-07-31] MEDS: Gabapentin 300 MG Capsule PO (16:39)
[2019-07-31] MEDS: Na Biphos/Potassium Phosphate PACKET 1 PACKET PO ×2 (17:38→21:07)
[2019-07-31] MEDS: hydrOXYzine PAM 25 MG Capsule 50 MG PO ×2 (17:41→23:59)
[2019-07-31] MEDS: traZODone 50 MG Tablet PO (21:07)
[2019-07-31] MEDS: Famotidine 20 MG Tablet PO (21:07)
[2019-08-01] VITALS (7 sets, daily range): BP systolic 119–151; BP diastolic 86–121; PULSE 78–103; RESP 16–20; TEMP 36.4–36.8; O2SAT 93–96
[2019-08-01] MEDS: 0.9% Saline Lock 10 ML Syringe IV ×2 (00:09→21:03)
[2019-08-01] MEDS: Phenobarbital 32.4 MG Tablet 97.2 MG PO ×5 (04:02→20:55)
[2019-08-01 06:07] LABS: Absolute Lymphocyte Count 1.57 X10^3/uL (0.83-4.51); Absolute Neutrophil Count 2.7 X10^3/uL (2.0-7.7); Basophil# 0.03 X10^3/uL; Basophil% 0.6 % (0-1); Eosinophil# 0.26 X10^3/uL; Eosinophils% 5.2 % (0-5); Hematocrit 39.7 % (40-54); Hemoglobin 13.4 g/dL (13.0-16.5); Lymphocyte # 1.57 X10^3/ul (4.0); Lymphocyte % 31.3 % (19-41); Mean Corp Hgb Conc 33.8 g/dL (32-36); Mean Corpuscular Hgb 30.1 pg (27.0-32.0); Mean Corpuscular Volume 89.2 fL (80-94); Mean Platelet Vol. 9.6 fl (6.2-12.0); Monocyte# 0.41 X10^3/uL; Monocyte% 8.2 % (0-10); NRBC Flagged by Analyzer 0 % (0-5); Neutrophil # 2.74 X10^3/uL (2.7-7.7); Neutrophil % 54.5 % (47-70); POSITIVE COUNT YES; Platelet Count 97 K/mm3 (150-450); RBC Distribution Width CV 13.9 % (11.6-14.6); RBC Distribution Width SD 44.9 fl (35.1-43.9); Red Blood Count 4.45 M/mm3 (4.6-6.2)
[2019-08-01 06:26] LABS: Anion Gap 8 (5-15); BUN 16 mg/dL (7-18); BUN/Creat Ratio 17.9 RATIO (10-20); Calcium,Total 8.2 mg/dL (8.5-10.1); Chloride 99 mmol/L (98-107); Creatinine, Serum 0.89 mg/dL (0.70-1.30); EST Glomerular Filtration Rate 92 mL/min (>60); Est Glom Filt Rate - Afr Amer 111 mL/min (>60); Estimated Creatinine Clearance 80.46 ml/min; Glucose 82 mg/dL (74-106); Potassium 3.7 mmol/L (3.5-5.1); Sodium Level 137 mmol/L (136-145)
[2019-08-01] MEDS: Loperamide 2 MG Capsule PO (06:28)
[2019-08-01] MEDS: Na Biphos/Potassium Phosphate PACKET 1 PACKET PO ×4 (07:37→21:18)
[2019-08-01] MEDS: Thiamine Hydrochloride 100 MG Tablet PO (07:37)
[2019-08-01] MEDS: Folic Acid 1 MG Tablet PO (07:37)
[2019-08-01] MEDS: Multivitamins,Therapeutic Tablet 1 TABLET PO (07:37)
[2019-08-01] MEDS: Gabapentin 300 MG Capsule PO ×3 (07:37→16:30)
[2019-08-01] MEDS: Famotidine 20 MG Tablet PO ×2 (07:37→21:02)
--- NOTE | 2019-08-01 10:58 | PCM.PN.HOSP ---
Patient Problems: Active and Suspected Problems Alcohol withdrawal (Acute) Reason for Visit: Acute alcohol withdrawal syndrome. Objective: Patient having anxiety, tremors and shaking of upper part of body. Denies hallucinations, seizures or delirium. Vitals/I&O's: Vital Signs Temp Pulse Resp BP Pulse Ox 98.2 F 84 16 135/86 H 93 08/01/19 07:43 08/01/19 07:43 08/01/19 07:43 08/01/19 07:43 08/01/19 07:43 Oxygen Delivery Method Room Air Weight: 192 lb Body Mass Index (BMI) 30.0 Intake and Output for Last 24 Hours 07/30/19 07/31/19 08/01/19 23:59 23:59 23:59 Intake Total 1399 / 1399 Balance 1399 General: Alert, Oriented x3, Cooperative HEENT: Atraumatic, PERRLA, EOMI, Normocephalic Neck: Supple, No JVD, Negative Carotid Bruits Lungs: Clear to auscultation, Normal air movement, No rhonchi, No wheeze, No rales Cardiovascular: Regular rate, Regular Rhythm, Normal S1, Normal S2, No murmurs Abdomen: Bowel Sounds Present, Soft, Non Tender, Non-Distended Extremities: No edema, Capillary Refill Less than 3 Seconds Skin: No rashes, No breakdown Musculoskeletal: No Tenderness to Palpation of Joints or Extremities, Arthritic Changes Neurological: Cranial nerves II-XII grossly intact, Deep Tendon Reflexes 2+/4 and Symmetrical, Neuro grossly intact, Unsteady Gait Psych/Mental Status: Normal Affect, Appropriate Laboratory Results 07/31/19 12:29: WBC 5.9, RBC 4.89, Hgb 14.6, Hct 43.1, MCV 88.1, MCH 29.9, MCHC 33.9, RDW Std Deviation 44.3 H, RDW Coeff of Klarissa 13.9, Plt Count 127 L, MPV 9.4, Immature Gran % (Auto) 0.200, Neut % (Auto) 54.9, Lymph % (Auto) 34.2, [place] % (Auto) 7.8, Eos % (Auto) 2.2, Baso % (Auto) 0.7, Absolute Neuts (auto) 3.3, Absolute Lymphs (auto) 2.03, Nucleated RBC % 0 07/31/19 12:29: Sodium 139, Potassium 4.1, Chloride 102, Carbon Dioxide 27.0, Anion Gap 10, BUN 18, Creatinine 1.09, Estim Creat Clear Calc 65.70, Est GFR (MDRD) Af Amer 88, Est GFR (MDRD) Non-Af 73, BUN/Creatinine Ratio 16.5, Glucose 91, Calcium 9.1 07/31/19 12:29: Ethyl Alcohol 288.0 07/31/19 12:29: Phosphorus 2.4 L, Magnesium 2.2 07/31/19 13:50: Urine Opiates Screen NEGATIVE, Urine Methadone Screen NEGATIVE, Ur Barbiturates Screen NEGATIVE, Ur Phencyclidine Scrn NEGATIVE, Ur Amphetamines Screen NEGATIVE, U Methamphetamin-MDMA NEGATIVE, U Benzodiazepines Scrn NEGATIVE, Urine Cocaine Screen NEGATIVE, U Cannabinoids Screen NEGATIVE, Ur Drug Screen Comment 08/01/19 05:50: WBC 5.0, RBC 4.45 L, Hgb 13.4, Hct 39.7 L, MCV 89.2, MCH 30.1, MCHC 33.8, RDW Std Deviation 44.9 H, RDW Coeff of Klarissa 13.9, Plt Count 97 L, MPV 9.6, Immature Gran % (Auto) 0.200, Neut % (Auto) 54.5, Lymph % (Auto) 31.3, [place] % (Auto) 8.2, Eos % (Auto) 5.2 H, Baso % (Auto) 0.6, Absolute Neuts (auto) 2.7, Absolute Lymphs (auto) 1.57, Nucleated RBC % 0 08/01/19 05:50: Sodium 137, Potassium 3.7, Chloride 99, Carbon Dioxide 30.0, Anion Gap 8, BUN 16, Creatinine 0.89, Estim Creat Clear Calc 80.46, Est GFR (MDRD) Af Amer 111, Est GFR (MDRD) Non-Af 92, BUN/Creatinine Ratio 17.9, Glucose 82, Calcium 8.2 L Current Medications Acetaminophen (Tylenol) 650 mg PO Q6H PRN PRN PRN Reason: Pain Score 1-10/Temp > 100.7 F Al Hydroxide/Mg Hydroxide (Mylanta Ii) 30 ml PO Q6H PRN PRN PRN Reason: Gastric Burning Albuterol Sulfate (Ventolin Aerosols) 2.5 mg INHALATION Q2H PRN PRN PRN Reason: dyspnea, wheezing Bisacodyl (Dulcolax) 10 mg RECTAL DAILY PRN PRN Reason: Constipation Dicyclomine HCl (Bentyl) 20 mg PO Q6H PRN PRN PRN Reason: abdominal discomfort Famotidine (Pepcid) 20 mg PO BID [facility] Last Admin: 08/01/19 07:37 Dose: 20 mg Documented by: Folic Acid (Folic Acid) [facility] Stop: 08/02/19 08:01 Last Admin: 08/01/19 07:37 Dose: 1 mg Documented by: Gabapentin (Neurontin) 300 mg PO TIDCM [facility] Last Admin: 08/01/19 07:37 Dose: 300 mg Documented by: Glucagon () 1 mg IM .X1 PRN PRN Reason: Hypoglycemia Hydroxyzine Pamoate (Vistaril Pamoate Capsule) 50 mg PO Q6H PRN PRN PRN Reason: Mild Anxiety (score 1/3) Last Admin: 07/31/19 23:59 Dose: 50 mg Documented by: Dextrose (Dextrose 10%-Water) 250 mls @ 999 mls/hr IV .Q16M PRN; Protocol PRN Reason: HYPOGLYCEMIA Ibuprofen (Motrin) 600 mg PO Q8H PRN PRN PRN Reason: Pain Score 1-5/10 Loperamide HCl (Imodium) 2 - 4 mg PO UD PRN PRN Reason: LOOSE STOOLS Last Admin: 08/01/19 06:28 Dose: 4 mg Documented by: Lorazepam (Ativan) 2 mg IV X1 PRN PRN Reason: Seizure Methocarbamol (Methocarbamol) 750 mg PO Q6H PRN PRN PRN Reason: Muscle Aches Multivitamins (Multivitamin) [facility] Last Admin: 08/01/19 07:37 Dose: 1 tablet Documented by: Ondansetron HCl (Zofran Odt) 4 mg PO Q6H PRN PRN PRN Reason: NAUSEA Phenobarbital (Phenobarbital) 97.2 mg PO Q4H [facility] Stop: 08/01/19 20:01 Last Admin: 08/01/19 07:40 Dose: 97.2 mg Documented by: Phenobarbital (Phenobarbital) 64.8 mg PO Q4H [facility] Stop: 08/02/19 20:01 Phenobarbital (Phenobarbital) 64.8 mg PO Q6H [facility] Stop: 08/03/19 20:01 Phenobarbital (Phenobarbital) 32.4 mg PO Q6H [facility] Stop: 08/04/19 20:01 Potassium Phos/Sodium Phos (Neutra-Phos Packet) 1 packet PO 4X/DAYCM [facility] Last Admin: 08/01/19 07:37 Dose: 1 packet Documented by: Casa (Senokot) 1 tablet PO QHS PRN PRN Reason: Constipation Sodium Chloride () 10 - 40 ml IV UD PRN PRN Reason: SALINE FLUSH Last Admin: 08/01/19 00:09 Dose: 10 ml Documented by: Thiamine HCl (Vitamin B1) 100 [facility] Stop: 08/02/19 08:01 Last Admin: 08/01/19 07:37 Dose: 100 mg Documented by: Trazodone HCl (Desyrel) 50 mg PO QHS [facility] Last Admin: 07/31/19 21:07 Dose: 50 mg Documented by: STROKE Vital Signs/Narrative: Vital Signs Temp Pulse Resp BP Pulse Ox 08/01/19 07:43 98.2 F 84 16 135/86 H 93 08/01/19 07:28 96 Medical Necessity - Tobacco Use Smoking Status: Former smoker - Patient quit cigarette tobacco usage several years prior with prior to this up to 2.5 pack/day cigarette tobacco usage. Tobacco Use: Non-smoker Assessment/Plan All Active Problems Alcohol withdrawal (Acute) The patient is a 64 y/o male with history of chronic daily use about 1/5 of 90 proof vodka daily, COPD is being admitted for acute alcohol withdrawal. Last alcohol intake was 8 AM on day of admission. He has failed remission and multiple relapses in the past. 1. Acute EtOH Withdrawal: Patient is being admitted in MedSurg floor. He is on phenobarbital regimen for alcohol withdrawal stabilization. On gabapentin for seizure prophylaxis. On other antiemetics, antihistaminic, Bentyl and Tylenol as needed. On trazodone nightly for sleep. Consult correctional casework specialist for 180 assistance for transition to next level of rehabilitation care 2. Electrolyte abnormality: Mild hypophosphatemia, phosphorus 2.4. Phosphorus being replaced. 3. Thrombocytopenia, likely chronic: Admission platelet 127, likely secondary to alcohol abuse. Platelet count 97,000, stable. Avoid antithrombotics/antiplatelet agent. 3. Elevated BP without hypertensive diagnosis mostly secondary to alcohol withdrawal: Blood pressure was 152/100 in triage. Currently much better 134/88. 4. COPD: Need PFT and pulmonary clinic follow-up. PRN albuterol, incentive spirometry. 5. GERD: Maintained on famotidine. 6. DVT prophylaxis: Low risk, encourage ambulation. Code Visit Inpatient E&M: 54600 Subs Hosp L2
--- NOTE | 2019-08-01 15:08 | CHAPLAIN ---
Type of Pastoral Visit _x__ Initial Visit ___ Follow-up Visit ___ On-call Visit ___ General Patient Visit ___ Spiritual Assessment ___ Family Conference ___ Bereavement ___ Rapid Response ___ Code Blue ___ Other (describe below) Pastoral Care Referral From _x__ Patient ___ Family ___ Nurse ___ Physician ___ Corporation Lawyer ___ Senior C Software Developer ___ Other (describe below) Sacrament/Intervention _x__ Active listening ___ Anointing ___ Church ___ Bereavement ___ Communion _x__ Loretta exploration ___ _x__ Life review _x__ Prayer ___ Reconciliation ___ Sacrament of Sick _x__ Supportive presence ___ Wedding ___ Other (describe below) Pastoral Comments patient states that I can't seem to overcome this and I'm here to detox; pt states that he has been in rehab numerous times and is now after 42 years of marriage because of the alcohol; pt states that he has had spiritual help before and is open to that; pt has been an active member of [facility] [employer] in [place] and was in [facility] there which was good for him but adds my got the amish in the divorce; pt would like a Bible and information on additional support and loretta based groups; pt has a plan to attend 180 for recovery support; returned with Bible and information on loretta based support groups for addictions
[2019-08-01] MEDS: traZODone 50 MG Tablet PO (21:01)
[2019-08-02] MEDS: Phenobarbital 32.4 MG Tablet 64.8 MG PO ×6 (00:08→20:04)
[2019-08-02 00:17] VITALS: BP 126/89; PULSE 70; RESP 16; TEMP 36.5; O2SAT 93
[2019-08-02 04:07] VITALS: BP 106/77; PULSE 71; RESP 16; TEMP 36.6; O2SAT 96
[2019-08-02 09:59] VITALS: BP 121/81; PULSE 105; RESP 16; TEMP 36.7; O2SAT 97
[2019-08-02] MEDS: Famotidine 20 MG Tablet PO ×2 (10:04→21:33)
[2019-08-02] MEDS: Thiamine Hydrochloride 100 MG Tablet PO (10:04)
[2019-08-02] MEDS: Na Biphos/Potassium Phosphate PACKET 1 PACKET PO ×4 (10:04→21:33)
[2019-08-02] MEDS: Folic Acid 1 MG Tablet PO (10:04)
[2019-08-02] MEDS: Multivitamins,Therapeutic Tablet 1 TABLET PO (10:04)
[2019-08-02] MEDS: Gabapentin 300 MG Capsule PO ×3 (10:04→16:16)
--- NOTE | 2019-08-02 10:35 | ADDICTION ---
Simon presented with euthymic mood and affect. He was oriented x4 and reported no SI/HI. He appeared to be in a positive frame of mind and reported hope for success in his recovery from alcohol dependency. Simon reported that he feels great and noted that he believes that he has passed the hard parts of his withdrawal. He shared that he is motivated to engage in residential treatment following discharge from hospital. 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 [facility] nurse is aware of d/c plans and general timeframe of d/c. Client reports that he plans to d/c on Monday08/03/2019 and will present to [facility] on Monday to engage in treatment.
--- NOTE | 2019-08-02 10:38 | PCM.PN.HOSP ---
Patient Problems: Active and Suspected Problems Alcohol withdrawal (Acute) Reason for Visit: Acute alcohol withdrawal Objective: Patient heart rate and blood pressure is controlled. Patient walked around the nursing station. Mental symptoms are well controlled. Vitals/I&O's: Vital Signs Temp Pulse Resp BP Pulse Ox 98.0 F 105 H 16 121/81 H 97 08/02/19 09:59 08/02/19 09:59 08/02/19 09:59 08/02/19 09:59 08/02/19 09:59 Oxygen Delivery Method Room Air Weight: 192 lb Body Mass Index (BMI) 30.0 Intake and Output for Last 24 Hours 07/31/19 08/01/19 08/02/19 23:59 23:59 23:59 Intake Total 2450 / 2450 100 / 100 Balance 2450 / 2450 100 / 100 General: Alert, Oriented x3, Cooperative HEENT: Atraumatic, PERRLA, EOMI, Normocephalic Neck: Supple, No JVD, Negative Carotid Bruits Lungs: Clear to auscultation, Normal air movement Cardiovascular: Regular rate, Regular Rhythm, Normal S1, Normal S2, No murmurs Abdomen: Bowel Sounds Present, Soft, Non Tender, Non-Distended Extremities: No edema, Capillary Refill Less than 3 Seconds Skin: No rashes, No breakdown Musculoskeletal: No Tenderness to Palpation of Joints or Extremities Neurological: Cranial nerves II-XII grossly intact, Deep Tendon Reflexes 2+/4 and Symmetrical, Neuro grossly intact Psych/Mental Status: Normal Affect, Appropriate Current Medications Acetaminophen (Tylenol) 650 mg PO Q6H PRN PRN PRN Reason: Pain Score 1-10/Temp > 100.7 F Al Hydroxide/Mg Hydroxide (Mylanta Ii) 30 ml PO Q6H PRN PRN PRN Reason: Gastric Burning Albuterol Sulfate (Ventolin Aerosols) 2.5 mg INHALATION Q2H PRN PRN PRN Reason: dyspnea, wheezing Bisacodyl (Dulcolax) 10 mg RECTAL DAILY PRN PRN Reason: Constipation Dicyclomine HCl (Bentyl) 20 mg PO Q6H PRN PRN PRN Reason: abdominal discomfort Famotidine (Pepcid) 20 mg PO BID [facility] Last Admin: 08/02/19 10:04 Dose: 20 mg Documented by: Gabapentin (Neurontin) 300 mg PO TIDCM [facility] Last Admin: 08/02/19 10:04 Dose: 300 mg Documented by: Glucagon () 1 mg IM .X1 PRN PRN Reason: Hypoglycemia Hydroxyzine Pamoate (Vistaril Pamoate Capsule) 50 mg PO Q6H PRN PRN PRN Reason: Mild Anxiety (score 1/3) Last Admin: 07/31/19 23:59 Dose: 50 mg Documented by: Dextrose (Dextrose 10%-Water) 250 mls @ 999 mls/hr IV .Q16M PRN; Protocol PRN Reason: HYPOGLYCEMIA Ibuprofen (Motrin) 400 mg PO Q8H PRN PRN PRN Reason: Pain Score 1-5/10 Loperamide HCl (Imodium) 2 - 4 mg PO UD PRN PRN Reason: LOOSE STOOLS Last Admin: 08/01/19 06:28 Dose: 4 mg Documented by: Lorazepam (Ativan) 2 mg IV X1 PRN PRN Reason: Seizure Methocarbamol (Methocarbamol) 750 mg PO Q6H PRN PRN PRN Reason: Muscle Aches Multivitamins ([facility]itamin) [facility] Last Admin: 08/02/19 10:04 Dose: 1 tablet Documented by: Ondansetron HCl (Zofran Odt) 4 mg PO Q6H PRN PRN PRN Reason: NAUSEA Phenobarbital (Phenobarbital) 64.8 mg PO Q4H [facility] Stop: 08/02/19 20:01 Last Admin: 08/02/19 10:12 Dose: 64.8 mg Documented by: Phenobarbital (Phenobarbital) 64.8 mg PO Q6H [facility] Stop: 08/03/19 20:01 Phenobarbital (Phenobarbital) 32.4 mg PO Q6H [facility] Stop: 08/04/19 20:01 Potassium Phos/Sodium Phos (Neutra-Phos Packet) [facility] Last Admin: 08/02/19 10:04 Dose: 1 packet Documented by: Senna (Senokot) 1 tablet PO QHS PRN PRN Reason: Constipation Sodium Chloride () 10 - 40 ml IV UD PRN PRN Reason: SALINE FLUSH Last Admin: 08/01/19 21:03 Dose: 10 ml Documented by: Trazodone HCl (Desyrel) 50 mg PO QHS [facility] Last Admin: 08/01/19 21:01 Dose: 50 mg Documented by: STROKE Vital Signs/Narrative: Vital Signs Temp Pulse Resp BP Pulse Ox 08/02/19 09:59 98.0 F 105 H 16 121/81 H 97 Medical Necessity - Tobacco Use Smoking Status: Former smoker - Patient quit cigarette tobacco usage several years prior with prior to this up to 2.5 pack/day cigarette tobacco usage. Tobacco Use: Non-smoker Assessment/Plan All Active Problems Alcohol withdrawal (Acute) The patient is a 64 y/o male with history of chronic daily use about 1/5 of 90 proof vodka daily, COPD is being admitted for acute alcohol withdrawal. Last alcohol intake was 8 AM on day of admission. He has failed remission and multiple relapses in the past. 1. Acute EtOH Withdrawal: Patient is being admitted in MedSurg floor. He is on phenobarbital regimen for alcohol withdrawal stabilization. On gabapentin for seizure prophylaxis. On other antiemetics, antihistaminic, Bentyl and Tylenol as needed. On trazodone nightly for sleep. Consult machine adjuster leader case trim for 180 assistance for transition to next level of rehabilitation care 08/02: Needs to complete tapering dose of phenobarbital regimen. Discharge tomorrow. 2. Electrolyte abnormality: Mild hypophosphatemia, phosphorus 2.4. Phosphorus being replaced. 3. Thrombocytopenia, likely chronic: Admission platelet 127, likely secondary to alcohol abuse. Platelet count 97,000, stable. Avoid antithrombotics/antiplatelet agent. 3. Elevated BP without hypertensive diagnosis mostly secondary to alcohol withdrawal: Blood pressure was 152/100 in triage. Currently much better 134/88. 4. COPD: Need PFT and pulmonary clinic follow-up. PRN albuterol, incentive spirometry. 5. GERD: Maintained on famotidine. 6. DVT prophylaxis: Low risk, encourage ambulation. Code Visit Inpatient E&M: 64910 Subs Hosp L2
[2019-08-02 13:16] VITALS: BP 125/88; PULSE 88; RESP 16; TEMP 36.6; O2SAT 96
[2019-08-02 16:07] VITALS: BP 123/89; PULSE 84; RESP 18; TEMP 37.1; O2SAT 98
[2019-08-02 20:06] VITALS: BP 101/68; PULSE 75; RESP 16; TEMP 37.2; O2SAT 95
[2019-08-02] MEDS: traZODone 50 MG Tablet PO (21:33)
[2019-08-02] MEDS: 0.9% Saline Lock 10 ML Syringe IV (21:36)
[2019-08-03 02:10] VITALS: BP 115/76; PULSE 68; RESP 16; TEMP 36.6; O2SAT 96
[2019-08-03] MEDS: Phenobarbital 32.4 MG Tablet 64.8 MG PO ×2 (02:11→07:55)
[2019-08-03 07:34] VITALS: O2SAT 92
[2019-08-03 07:46] VITALS: BP 124/89; PULSE 77; RESP 18; TEMP 36.8; O2SAT 95
[2019-08-03] MEDS: Multivitamins,Therapeutic Tablet 1 TABLET PO (07:50)
[2019-08-03] MEDS: Famotidine 20 MG Tablet PO (07:50)
[2019-08-03] MEDS: Na Biphos/Potassium Phosphate PACKET 1 PACKET PO (07:51)
--- NOTE | 2019-08-03 09:19 | DCINST_ITS ---
- Discharge Diagnoses Current Active Problems: Current Active and Chronic Problems Alcohol withdrawal (Acute) COPD (chronic obstructive pulmonary disease) (Chronic) Former tobacco use (Chronic) You will use the following diet at home:: Regular Your food should be the consistency of: Regular Discharge Activity: May Not Drive Weight Bearing Status: Weight bearing as tolerated Call your doctor if you observe: Fever of 101 or Higher, Numbness or Tingling, Inability to have a bowel movement, Shortness of breath, Dizziness, Fainting spells, Swelling in the ankles, Chest pain, Prolonged hiccoughing, Increased palpitations (irregular heartbeat) Additional Instructions: Follow-up 180 on 08/05/2019 Allergies/Adverse Reactions: Allergies oxycodone [From Percocet] Allergy (Verified 07/31/19 11:27) Hives lorazepam [From Ativan] Adverse Reaction (Verified 07/31/19 11:27) HALLUCINATIONS Medications to take at Discharge Multivitamins,Therapeutic [Multivitamin] 1 tab PO DAILYCM tab 08/03/19 Primary Care Physician: Care Physician,No Primary [Primary Care Provider] - Please follow up with your Primary Care Physician in: In 2 weeks Test Results: Test results from this visit will be discussed in further detail at your follow- up appointment, if applicable.
--- NOTE | 2019-08-03 09:20 | PCM.DC.SUM ---
Discharge Date and Diagnosis - Problem List Patient Problems: Active and Suspected Problems Alcohol withdrawal (Acute) Date of Admission: 07/31/19 Date of Discharge: 08/03/19 - Primary Discharge Diagnosis Active and Suspected Problems Alcohol withdrawal (Acute) - Secondary Discharge Diagnosis Chronic Problems COPD (chronic obstructive pulmonary disease) (Chronic) Former tobacco use (Chronic) Hospital Course and Treatment Summary of Care Provided: [] The patient is a 64 y/o male with history of chronic daily use about 1/5 of 90 proof vodka daily, COPD is being admitted for acute alcohol withdrawal. Last alcohol intake was 8 AM on day of admission. He has failed remission and multiple relapses in the past. 1. Acute EtOH Withdrawal: Patient is being admitted in MedSurg floor. He is on phenobarbital regimen for alcohol withdrawal stabilization. On gabapentin for seizure prophylaxis. On other antiemetics, antihistaminic, Bentyl and Tylenol as needed. On trazodone nightly for sleep. Consult business case analyst for 180 assistance for transition to next level of rehabilitation care 2. Electrolyte abnormality: Mild hypophosphatemia, phosphorus 2.4. Phosphorus being replaced. 3. Thrombocytopenia, likely chronic: Admission platelet 127, likely secondary to alcohol abuse. Platelet count 97,000, stable. Avoid antithrombotics/antiplatelet agent. 3. Elevated BP without hypertensive diagnosis mostly secondary to alcohol withdrawal: Blood pressure was 152/100 in triage. Blood pressure is controlled 4. COPD: Need PFT and pulmonary clinic follow-up. PRN albuterol, incentive spirometry. 5. GERD: Maintained on famotidine. 6. DVT prophylaxis: Low risk, encourage ambulation. Discharge medication reconciliation done. Discharge follow-up instructions completed. Discharge process discussed with the patient and all questions were answered to patient's satisfaction. Patient completed phenobarbital protocol along with other medications for stabilization of acute alcohol withdrawal. Follow-up with 180 on 08/05/2019. Total time spent, exact 35 minutes on discharge meds reconciliation, examination, coordination of care with nurses and ancillary staff, review of imaging and blood test and discussion with the patient on follow-up instructions Patient Problems: Active and Suspected Problems Alcohol withdrawal (Acute) Subjective: Seen and examined. No acute symptoms or overnight events. Patient is ready to go home. - Physical Exam Vitals/I&O's: Vital Signs Temp Pulse Resp BP Pulse Ox 98.3 F 77 18 124/89 H 95 02/29/20 07:46 08/03/19 07:46 08/03/19 07:46 08/03/19 07:46 08/03/19 07:46 Oxygen Delivery Method Room Air Weight: 192 lb Body Mass Index (BMI) 30.0 Intake and Output for Last 24 Hours 08/01/19 08/02/19 08/03/19 23:59 23:59 23:59 Intake Total 2450 / 2450 950 / 950 100 / 100 Balance 2450 / 2450 950 / 950 100 / 100 General: Alert, Oriented x3, Cooperative HEENT: Atraumatic, PERRLA, EOMI, Normocephalic Neck: Supple, No JVD, Negative Carotid Bruits Lungs: Clear to auscultation, Normal air movement, No rhonchi, No wheeze, No rales Cardiovascular: Regular rate, Regular Rhythm, Normal S1, Normal S2, No murmurs Abdomen: Bowel Sounds Present, Soft, Non Tender Extremities: No edema, Capillary Refill Less than 3 Seconds Skin: No rashes, No breakdown Musculoskeletal: No Tenderness to Palpation of Joints or Extremities Neurological: Cranial nerves II-XII grossly intact, Deep Tendon Reflexes 2+/4 and Symmetrical, Neuro grossly intact, Motor Exam 5/5 strength throughout Psych/Mental Status: Normal Affect, Appropriate Current Medications Acetaminophen (Tylenol) 650 mg PO Q6H PRN PRN PRN Reason: Pain Score 1-10/Temp > 100.7 F Al Hydroxide/Mg Hydroxide (Mylanta Ii) 30 ml PO Q6H PRN PRN PRN Reason: Gastric Burning Albuterol Sulfate (Ventolin Aerosols) 2.5 mg INHALATION Q2H PRN PRN PRN Reason: dyspnea, wheezing Bisacodyl (Dulcolax) 10 mg RECTAL DAILY PRN PRN Reason: Constipation Dicyclomine HCl (Bentyl) 20 mg PO Q6H PRN PRN PRN Reason: abdominal discomfort Famotidine (Pepcid) 20 mg PO BID [facility] Last Admin: 08/03/19 07:50 Dose: 20 mg Documented by: Gabapentin (Neurontin) 300 mg PO TIDCM [facility] Last Admin: 08/03/19 07:50 Dose: Not Given Documented by: Glucagon () 1 mg IM .X1 PRN PRN Reason: Hypoglycemia Hydroxyzine Pamoate (Vistaril Pamoate Capsule) 50 mg PO Q6H PRN PRN PRN Reason: Mild Anxiety (score 1/3) Last Admin: 07/31/19 23:59 Dose: 50 mg Documented by: Dextrose (Dextrose 10%-Water) 250 mls @ 999 mls/hr IV .Q16M PRN; Protocol PRN Reason: HYPOGLYCEMIA Ibuprofen (Motrin) 400 mg PO Q8H PRN PRN PRN Reason: Pain Score 1-5/10 Loperamide HCl (Imodium) 2 - 4 mg PO UD PRN PRN Reason: LOOSE STOOLS Last Admin: 08/01/19 06:28 Dose: 4 mg Documented by: Lorazepam (Ativan) 2 mg IV X1 PRN PRN Reason: Seizure Methocarbamol (Methocarbamol) 750 mg PO Q6H PRN PRN PRN Reason: Muscle Aches Multivit[facility] ([facility]amin) [facility] Last Admin: 08/03/19 07:50 Dose: 1 tablet Documented by: Ondansetron HCl (Zofran Odt) 4 mg PO Q6H PRN PRN PRN Reason: NAUSEA Phenobarbital (Phenobarbital) 64.8 mg PO Q6H [facility] Stop: 08/03/19 20:01 Last Admin: 08/03/19 07:55 Dose: 64.8 mg Documented by: Phenobarbital (Phenobarbital) 32.4 mg PO Q6H [facility] Stop: 08/04/19 20:01 Potassium Phos/Sodium Phos (Neutra-Phos Packet) [facility] Last Admin: 08/03/19 07:51 Dose: 1 packet Documented by: Senna (Senokot) 1 tablet PO QHS PRN PRN Reason: Constipation Sodium Chloride () 10 - 40 ml IV UD PRN PRN Reason: SALINE FLUSH Last Admin: 08/02/19 21:36 Dose: 10 ml Documented by: Trazodone HCl (Desyrel) 50 mg PO QHS [facility] Last Admin: 08/02/19 21:33 Dose: 50 mg Documented by: Home Medications: Medications to take at Discharge Multivitamins,Therapeutic [Multivitamin] 1 tab PO DAILYCM tab 08/03/19 Primary Care Physician: Care Physician,No Primary [Primary Care Provider] - Medical Necessity - Tobacco Use Smoking Status: Former smoker - Patient quit cigarette tobacco usage several years prior with prior to this up to 2.5 pack/day cigarette tobacco usage. Tobacco Use: Non-smoker Meaningful Use Info Meaningful Use Diagnoses (Choose all that apply): None applicable Code Visit Inpatient E&M: 80465 Disch Hosp
== END 2019-08-03 10:52 | disposition home or self-care (01) | DRG 897 ==
LOC: ED 11:49 → MS2 14:56 → MS3 18:29
PROVIDERS: Admitting Provider Family Medicine; Emergency Provider Emergency Medicine; Visit Provider Internal Medicine
DX: F10.239 Alcohol dependence with withdrawal, unspecified (principal); Y90.8 Blood alcohol level of 240 mg/100 ml or more; J44.9 Chronic obstructive pulmonary disease, unspecified; E83.39 Other disorders of phosphorus metabolism; D69.6 Thrombocytopenia, unspecified; K21.9 Gastro-esophageal reflux disease without esophagitis; R03.0 Elevated blood-pressure reading, without diagnosis of hypertension; Z87.891 Personal history of nicotine dependence
CPT/HCPCS: 36415; 80048; 80307; 80320; 83735; 84100; 85025; 99283; J7120; A4216; G0480

== ENCOUNTER 2019-11-07 11:19 | Inpatient (IN) | payer OTHER, SELFPAY ==
[2019-11-07] VITALS (8 sets, daily range): BP systolic 121–158; BP diastolic 81–99; PULSE 82–94; RESP 14–18; TEMP 36.5–36.8; O2SAT 92–98; BMI 30.8; BMI 30.2
[2019-11-07 11:45] LABS: Absolute Neutrophil Count 1.9 X10^3/uL (2.0-7.7); Basophil# 0.04 X10^3/uL; Basophil% 0.9 % (0-1); Eosinophils% 4.5 % (0-5); Hematocrit 41.7 % (40-54); Hemoglobin 14.3 g/dL (13.0-16.5); Lymphocyte % 38.5 % (19-41); Mean Corp Hgb Conc 34.3 g/dL (32-36); Mean Corpuscular Hgb 32.9 pg (27.0-32.0); Mean Corpuscular Volume 95.9 fL (80-94); Mean Platelet Vol. 9.3 fl (6.2-12.0); Monocyte# 0.55 X10^3/uL; Monocyte% 12.5 % (0-10); NRBC Flagged by Analyzer 0 % (0-5); Neutrophil # 1.91 X10^3/uL (2.7-7.7); Neutrophil % 43.4 % (47-70); Platelet Count 115 K/mm3 (150-450); RBC Distribution Width CV 16.2 % (11.6-14.6); RBC Distribution Width SD 57.6 fl (35.1-43.9); Red Blood Count 4.35 M/mm3 (4.6-6.2); White Blood Count 4.4 K/mm3 (4.4-11.0)
--- NOTE | 2019-11-07 11:50 | ED.DCSUM_ITS ---
History of Present Illness Chief Complaint: ETOH Intox Informant: Patient Narrative: Patient is a 64-year-old male with history of alcohol abuse presenting for alcohol detox. Patient states he drinks a half a gallon of 90 proof vodka a day now. States his last drink was a shot of vodka mixed with Powerade just prior to arrival. He states he wants to detox. Patient was last admitted to the hospital in July for alcohol detox. He states when he goes home he just cannot make himself stop drinking. He denies any other complaints at this time. He is concerned that he is going to go into withdrawal. He denies any other complaints at this time. Prior similar symptoms: Yes Past Medical History - Allergies and Home Meds Allergies/Adverse Reactions: Allergies oxycodone [From Percocet] Allergy (Verified 11/07/19 11:20) Hives lorazepam [From Ativan] Adverse Reaction (Verified 11/07/19 11:20) HALLUCINATIONS Primary Care Physician: Care Physician,No Primary [Primary Care Provider] - Past Medical History: - - Alcohol dependency, history of thrombocytopenia, COPD Surgical History: - - Left total hip replacement, low back surgery, left shoulder arthroscopic surgery. Smoking Status: Former smoker - Family History Maternal Family History: Reports: - - Patient notes a maternal family history of pulmonary disease. Paternal Family History: Reports: - - Patient notes paternal family history of cancer, throat. Review of Systems General: Denies: Chills, Fever, Sweats Eyes: Denies: Visual changes - bilaterally, Diplopia ENT: Denies: Rhinorrhea, Sore throat Cardiovascular: Denies: Chest pain, Palpitations Respiratory: Denies: Dyspnea, Cough, Dyspnea on exertion Gastrointestinal: Denies: Abdominal pain, Nausea, Vomiting, Diarrhea, Melena, Hematochezia Genitourinary: Denies: Dysuria, Hematuria, Frequency Musculoskeletal: Denies: Back pain, Extremity Pain Skin: Denies: Rash, Wounds Neurological: Reports: - - tremor. Denies: Headache, Weakness, Numbness Psych: Reports: Depression. Denies: Anxiety, Suicidal thoughts, Suicidal ideations Physical Exam Vital Signs/Narrative: Vital Signs Temp Pulse Resp BP Pulse Ox 11/07/19 11:31 97.7 F L 94 17 158/99 H 94 11/07/19 11:21 97.7 F L 94 17 158/99 H 94 Inital Vital Signs reviewed: Yes General: Well nourished, Well developed, No Acute Distress Head: Normocephalic, Atraumatic Eyes: Perrl, EOMI, - - Bilateral horizontal nystagmus ENT: Moist mucous membranes, No rhinorrhea Neck: Supple, Nontender Cardiovascular: Regular rate, Regular rhythm, No murmurs Respiratory: No distress, Chest nontender, Wheezing - Mild bilateral end expiratory Abdomen: Soft, Nontender, Nondistended, Normal bowel sounds Back: Nontender, Normal Inspection Extremities: Nontender, No edema Skin: Normal color, No rash Neurological: Alert, Oriented x3, Cranial nerves II-XII grossly intact, Normal Strength, Normal Sensation Psychological: Normal affect, Normal Mood Diagnostic/Tx/Re-eval Laboratory Data 11/07/19 11/07/19 11/07/19 11:34 11:34 11:34 WBC 4.4 RBC 4.35 L Hgb 14.3 Hct 41.7 MCV 95.9 H MCH 32.9 H MCHC 34.3 RDW Std Deviation 57.6 H RDW Coeff of Klarissa 16.2 H Plt Count 115 L MPV 9.3 Immature Gran % (Auto) 0.200 Neut % (Auto) 43.4 L Lymph % (Auto) 38.5 [place] % (Auto) 12.5 H Eos % (Auto) 4.5 Baso % (Auto) 0.9 Absolute Neuts (auto) 1.9 L Absolute Lymphs (auto) 1.70 Nucleated RBC % 0 Sodium 140 Potassium 3.5 Chloride 101 Carbon Dioxide 31.0 Anion Gap 8 BUN 3 L Creatinine 0.98 Estim Creat Clear Calc 73.07 Est GFR (MDRD) Af Amer 99 Est GFR (MDRD) Non-Af 82 BUN/Creatinine Ratio 3.0 L Glucose 135 H Calcium 8.3 L Total Bilirubin 0.40 AST 288 H ALT 146 H Alkaline Phosphatase 91 Total Protein 7.5 Albumin 3.3 Globulin 4.2 Albumin/Globulin Ratio 0.8 L Urine Opiates Screen Urine Methadone Screen Ur Barbiturates Screen Ur Phencyclidine Scrn Ur Amphetamines Screen U Methamphetamin-MDMA U Benzodiazepines Scrn Urine Cocaine Screen U Cannabinoids Screen Ur Drug Screen Comment Ethyl Alcohol 397.0 H* 11/07/19 11:45 WBC RBC Hgb Hct MCV MCH MCHC RDW Std Deviation RDW Coeff of Klarissa Plt Count MPV Immature Gran % (Auto) Neut % (Auto) Lymph % (Auto) [place] % (Auto) Eos % (Auto) Baso % (Auto) Absolute Neuts (auto) Absolute Lymphs (auto) Nucleated RBC % Sodium Potassium Chloride Carbon Dioxide Anion Gap BUN Creatinine Estim Creat Clear Calc Est GFR (MDRD) Af Amer Est GFR (MDRD) Non-Af BUN/Creatinine Ratio Glucose Calcium Total Bilirubin AST ALT Alkaline Phosphatase Total Protein Albumin Globulin Albumin/Globulin Ratio Urine Opiates Screen NEGATIVE Urine Methadone Screen NEGATIVE Ur Barbiturates Screen NEGATIVE Ur Phencyclidine Scrn NEGATIVE Ur Amphetamines Screen NEGATIVE U Methamphetamin-MDMA NEGATIVE U Benzodiazepines Scrn NEGATIVE Urine Cocaine Screen NEGATIVE U Cannabinoids Screen NEGATIVE Ur Drug Screen Comment Ethyl Alcohol - Medical Decision Making Patient is evaluated for request of alcohol detox. He currently is not displaying any signs of acute alcohol withdrawal and is actually intoxicated with a blood EtOH of 397. Discussed with admitting physician, Dr. Curiel who is willing to accept him for detox. Patient does have chronic thrombocytopenia as well as a mild transaminitis consistent with alcohol abuse. He has no cardiopulmonary symptoms and is otherwise stable. He stable for the general medical floor. Because he still intoxicated not showing signs of cute alcohol withdrawal I did not give him phenobarb and emergency room. ED Disposition - Plan for ED Patient: Disposition: Acute Care Hospital [facility] Diagnosis: Alcohol abuse with intoxication, Thrombocytopenia, Transaminitis Referrals: Care Physician,No Primary [Primary Care Provider] -
[2019-11-07 11:59] LABS: ALB/GLOB Ratio 0.8 RATIO (0.9-2.4); AST(SGOT) 288 U/L (15-37); Alanine Aminotransfer ALT/SGPT 146 U/L (16-61); Albumin, Serum 3.3 g/dL (3.2-5.0); Alkaline Phosphatase 91 U/L (45-117); Anion Gap 8 (5-15); BUN 3 mg/dL (7-18); Calcium,Total 8.3 mg/dL (8.5-10.1); Chloride 101 mmol/L (98-107); Creatinine, Serum 0.98 mg/dL (0.70-1.30); EST Glomerular Filtration Rate 82 mL/min (>60); Est Glom Filt Rate - Afr Amer 99 mL/min (>60); Estimated Creatinine Clearance 73.07 ml/min; Globulin 4.2 g/dL (2.2-4.2); Glucose 135 mg/dL (74-106); Potassium 3.5 mmol/L (3.5-5.1); Protein, Total 7.5 g/dL (6.4-8.2); Sodium Level 140 mmol/L (136-145)
[2019-11-07 12:05] LABS: Amphetamine Urine VISTA NEGATIVE (<1000 ng/mL); Barbiturate Urine VISTA NEGATIVE (< 200 ng/mL); Benzodiazepine Urine VISTA NEGATIVE (< 200 ng/mL); Cocaine Urine VISTA NEGATIVE (< 300 ng/mL); Ecstacy Urine VISTA NEGATIVE (< 500 ng/mL); Methadone Urine VISTA NEGATIVE (< 300 ng/mL); PCP Urine VISTA NEGATIVE (< 25 ng/mL); THC Urine VISTA NEGATIVE (< 50 ng/mL); Vista UDS pH Range 6
--- NOTE | 2019-11-07 12:12 | CM.ED ---
SOCIAL WORK SPOKE WITH FENG FROM [facility] AND UPDATED PATIENT ADMITTED TO [facility] FOR ALCOHOL WITHDRAW MANAGEMENT. FENG TO BE IN TO MEET WITH PATIENT. Ovi GARCIA ,MANAGER OF LOSS PREVENTION OPERATIONS, MANAGER OUTPATIENT.
[2019-11-07] MEDS: Lactated Ringers 1,000 ML 100 ML IV (13:02)
--- NOTE | 2019-11-07 13:28 | HP.PCM_ITS ---
Problem List (1) Alcohol abuse with intoxication Status: Acute (2) Thrombocytopenia Status: Chronic (3) Alcohol withdrawal Status: Chronic Qualifiers: Complication of substance-induced condition: with unspecified complication Qualified Code(s): F10.239 - Alcohol dependence with withdrawal, unspecified (4) COPD (chronic obstructive pulmonary disease) Status: Chronic Qualifiers: COPD type: unspecified COPD Qualified Code(s): J44.9 - Chronic obstructive pulmonary disease, unspecified (5) Former tobacco use Status: Chronic (6) Chronic alcoholic hepatitis Status: Chronic History of Present Illness Date of Admission: 11/07/19 Chief Complaint: Alcohol intoxication. The patient is a 64 year old M with history of chronic alcohol use and dependence, drinks half a gallon of 90 proof vodka every day, last drink was 2 PM yesterday came to ER for detoxification. Patient was last admitted in July for alcohol detoxification and withdrawal syndrome and was managed with phenobarbital regimen. He has history of COPD but has quit smoking. Denies any recent COPD exacerbation symptoms of worsening cough, shortness of breath or wheezing. Denies fever or chills or recent exposure or contact of suspected or confirmed case of COVID-19 Labs in the ER shows elevated ALT and AST, 146 and 288 respectively. Serum alcohol level 397. Patient had nausea and vomiting one time but denies hematemesis melena and hematochezia. Denies tremor, hallucinations, delusions or abdominal pain. [] Past Medical History Past Medical History (Chronic Problems): Chronic Problems Alcohol withdrawal (Chronic) COPD (chronic obstructive pulmonary disease) (Chronic) Former tobacco use (Chronic) Thrombocytopenia (Chronic) Chronic alcoholic hepatitis (Chronic) Allergies oxycodone [From Percocet] Allergy (Verified 11/07/19 11:20) Hives lorazepam [From Ativan] Adverse Reaction (Verified 11/07/19 11:20) HALLUCINATIONS Home Medications: Ambulatory Orders Medication Instructions Recorded NK 11/07/19 Surgical History: - - Left total hip replacement, low back surgery, left shoulder arthroscopic surgery. Psychiatric History: No pertinent psych hx Smoking Status: Former smoker - *Family History Maternal History Items: - - Patient notes a maternal family history of pulmonary disease. Paternal History Items: - - Patient notes paternal family history of cancer, throat. Review of Systems Constitutional: Denies: Chills, Fever, Weight Change HEENT: Denies: Head Aches, Sinus Congestion, Sinus Drainage Cardiovascular: Denies: Chest Pain, Palpitations Respiratory: Denies: Cough, Shortness of breath at rest, Sputum production Gastrointestinal: Denies: Abdominal Pain, Nausea, Vomiting Genitourinary: Denies: Dysuria Musculoskeletal: Reports: Back Pain, Joint Pain. Denies: Joint Tenderness Skin: Denies: Rash, Wounds Neurological: Reports: Balance problems. Denies: Focal weakness, Numbness, Tingling Psychiatric: Denies: Anxiety, Depression, Homicidal Ideations, Suicidal Ideations Hematologic/ Lymphatic: Denies: Easy Bruising, Easy Bleeding VTE Information - Inpt Only VTE Present on Admission: No VTE Mechan Device Prophylaxis: None VTE Pharm Prophylaxis ordered?: Yes Patient Problems: Active and Suspected Problems Alcohol abuse with intoxication (Acute) - Physical Exam Vitals/I&O's: Vital Signs Temp Pulse Resp BP Pulse Ox 98 F 91 14 148/81 H 98 11/07/19 13:03 11/07/19 13:03 11/07/19 13:03 11/07/19 13:03 11/07/19 13:03 Oxygen Delivery Method Room Air Weight: 196 lb 3.382 oz Body Mass Index (BMI) 30.2 General: Alert, Oriented x3, Cooperative HEENT: Atraumatic, PERRLA, EOMI, Normocephalic Oral: No Gingival or Mucosal Lesions/ Ulcerations, Dry Mucosa Neck: Supple, No JVD, Negative Carotid Bruits Lungs: Clear to auscultation, No rhonchi, No wheeze, No rales, Diminished - Air entry diminished in bilateral lung bases Cardiovascular: Regular rate, Regular Rhythm, Normal S1, Normal S2, No murmurs Abdomen: Bowel Sounds Present, Soft, Non Tender, Non-Distended Extremities: No edema, Capillary Refill Less than 3 Seconds Skin: No rashes, No breakdown Musculoskeletal: No Tenderness to Palpation of Joints or Extremities, Arthritic Changes, - - Patient has surgical scar of lumbar spine and left hip Neurological: Cranial nerves II-XII grossly intact, Deep Tendon Reflexes 2+/4 and Symmetrical, Neuro grossly intact Psych/Mental Status: Normal Affect, Appropriate Laboratory Results 11/07/19 11:34: WBC 4.4, RBC 4.35 L, Hgb 14.3, Hct 41.7, MCV 95.9 H, MCH 32.9 H, MCHC 34.3, RDW Std Deviation 57.6 H, RDW Coeff of Klarissa 16.2 H, Plt Count 115 L, MPV 9.3, Immature Gran % (Auto) 0.200, Neut % (Auto) 43.4 L, Lymph % (Auto) 38.5, [place] % (Auto) 12.5 H, Eos % (Auto) 4.5, Baso % (Auto) 0.9, Absolute Neuts (auto) 1.9 L, Absolute Lymphs (auto) 1.70, Nucleated RBC % 0 11/07/19 11:34: Sodium 140, Potassium 3.5, Chloride 101, Carbon Dioxide 31.0, Anion Gap 8, BUN 3 L, Creatinine 0.98, Estim Creat Clear Calc 73.07, Est GFR (MDRD) Af Amer 99, Est GFR (MDRD) Non-Af 82, BUN/Creatinine Ratio 3.0 L, Glucose 135 H, Calcium 8.3 L, Total Bilirubin 0.40, AST 288 H, ALT 146 H, Alkaline Phosphatase 91, Total Protein 7.5, Albumin 3.3, Globulin 4.2, Albumin/Globulin Ratio 0.8 L 11/07/19 11:34: Ethyl Alcohol 397.0 H* 11/07/19 11:45: Urine Opiates Screen NEGATIVE, Urine Methadone Screen NEGATIVE, Ur Barbiturates Screen NEGATIVE, Ur Phencyclidine Scrn NEGATIVE, Ur Amphetamines Screen NEGATIVE, U Methamphetamin-MDMA NEGATIVE, U Benzodiazepines Scrn NEGATIVE, Urine Cocaine Screen NEGATIVE, U Cannabinoids Screen NEGATIVE, Ur Drug Screen Comment Current Medications Lactated Ringer's () 1,000 mls @ 100 mls/hr IV .Q10H JASVIR Stop: 11/07/19 22:14 Last Admin: 11/07/19 13:02 Dose: 100 mls/hr Documented by: Assessment/Plan All Active Problems Alcohol abuse with intoxication (Acute) 64-year-old, gentleman with chronic daily alcohol use of vodka 19 and COPD is admitted for acute alcohol intoxication, detoxification and high probability of acute alcohol withdrawal syndrome 1. Acute EtOH intoxication and stabilization of alcohol withdrawal syndrome:: Patient is being admitted in MedSur floor. He is on phenobarbital regimen for alcohol withdrawal stabilization. On gabapentin for seizure prophylaxis. On other antiemetics, antihistaminic, Bentyl and Tylenol as needed. On trazodone nightly for sleep. Consult porter sample case for 180 assistance for transition to next level of rehabilitation care Patient is clinically hypovolemic, volume depleted: IV fluid Ringer lactate at 100 mils per hour. 2. Electrolyte abnormality: K3.5. Potassium replacement. Magnesium ordered. 3. Acute alcoholic hepatitis: Patient ALT was normal 41, AST 33 in June 2019. It is elevated, ALT/AST 146 and 288. 4 Thrombocytopenia, likely chronic: During previous admission, platelet count of 97,000. Currently it is 115,000. Check CBC daily. 5 COPD: Patient was advised pulmonary clinic follow-up but he did not follow- up. 6. GERD: on famotidine. 7. DVT prophylaxis: On Lovenox 40 mg subcu daily. Discontinue if platelet count drops less than 50,000 or hemoglobin less than 8 g% Living will/advanced directive/end of life care: Patient does not have living will or advanced directive. At current time, patient understands the discussion of end-of-life care. After discussion of procedures involved with full code, DNR CC arrest and DNR CC, the patient opted for DNR-CC Arrest Patient does not want artificial life support including intubation, tube feed, ventilator and/chest compression, central venous catheter, vasopressor and DC shock if needed DNR CC arrest. Total time spent in [id number] encounter in discussion of advanced directive 16 minutes. Inpatient E&M: 42657 Init Hosp L3 Procedures: 01693 Advncd Care Plan 30 Min
[2019-11-07 13:58] LABS: International Normalized Ratio 1.1; Prothrombin Time (Protime)PT. 13.6 SECONDS (11.7-14.9)
[2019-11-07 14:36] LABS: GGTP 258 U/L (15-85); Magnesium 1.9 mg/dL (1.6-2.6)
[2019-11-07] MEDS: Enoxaparin 40 MG/0.4 ML Syringe SC (14:38)
[2019-11-07] MEDS: hydrOXYzine PAM 25 MG Capsule 50 MG PO ×2 (14:38→23:55)
[2019-11-07] MEDS: Phenobarbital 32.4 MG Tablet 64.8 MG PO ×3 (14:38→21:06)
--- NOTE | 2019-11-07 15:19 | CASEMGMT ---
Social Work Note SW placed a call to Robin at [facility] [phone] and updated her on pt's admission to [facility]. Robin states she will come to [facility] tomorrow to meet with pt. Aminah Bermeo [employer]DBOARD CUTTER, DISCOVERY MANAGER
[2019-11-07] MEDS: Ibuprofen 400 MG Tablet PO (17:06)
[2019-11-08] MEDS: Phenobarbital 32.4 MG Tablet 64.8 MG PO ×6 (01:21→21:44)
[2019-11-08] MEDS: Dicyclomine 10 MG Capsule 20 MG PO (04:15)
[2019-11-08 04:16] VITALS: BP 153/99; PULSE 73; RESP 18; TEMP 36.5; O2SAT 94
[2019-11-08] MEDS: Gabapentin 300 MG Capsule PO (04:20)
[2019-11-08 04:44] VITALS: PULSE 85; RESP 20; O2SAT 95
[2019-11-08] MEDS: Albuterol 2.5 MG/3 ML VIAL.NEB. INHALATION (04:44)
[2019-11-08 08:14] LABS: Absolute Lymphocyte Count 0.94 X10^3/uL (0.83-4.51); Absolute Neutrophil Count 2.2 X10^3/uL (2.0-7.7); Basophil# 0.03 X10^3/uL; Basophil% 0.8 % (0-1); Eosinophil# 0.15 X10^3/uL; Eosinophils% 4.1 % (0-5); Hematocrit 40.2 % (40-54); Hemoglobin 13.5 g/dL (13.0-16.5); Lymphocyte # 0.94 X10^3/ul (4.0); Lymphocyte % 25.4 % (19-41); Mean Corp Hgb Conc 33.6 g/dL (32-36); Mean Corpuscular Hgb 32.1 pg (27.0-32.0); Mean Corpuscular Volume 95.7 fL (80-94); Mean Platelet Vol. 9.7 fl (6.2-12.0); Monocyte# 0.34 X10^3/uL; Monocyte% 9.2 % (0-10); NRBC Flagged by Analyzer 0 % (0-5); Neutrophil # 2.23 X10^3/uL (2.7-7.7); Neutrophil % 60.2 % (47-70); POSITIVE COUNT YES; Platelet Count 91 K/mm3 (150-450); RBC Distribution Width CV 16.5 % (11.6-14.6); RBC Distribution Width SD 57.9 fl (35.1-43.9); White Blood Count 3.7 K/mm3 (4.4-11.0)
[2019-11-08 08:15] LABS: Differential Indicated SCAN CRITERIA MET
[2019-11-08 08:41] VITALS: BP 149/95; PULSE 73; RESP 18; TEMP 36.6; O2SAT 96
[2019-11-08 08:46] LABS: Platelet Estimate SLT DEC (ADEQ)
[2019-11-08 08:53] LABS: ALB/GLOB Ratio 0.8 RATIO (0.9-2.4); AST(SGOT) 261 U/L (15-37); Alanine Aminotransfer ALT/SGPT 129 U/L (16-61); Alkaline Phosphatase 85 U/L (45-117); Anion Gap 8 (5-15); BUN 5 mg/dL (7-18); BUN/Creat Ratio 5.6 RATIO (10-20); Calcium,Total 8.1 mg/dL (8.5-10.1); Chloride 107 mmol/L (98-107); Creatinine, Serum 0.89 mg/dL (0.70-1.30); EST Glomerular Filtration Rate 91 mL/min (>60); Est Glom Filt Rate - Afr Amer 111 mL/min (>60); Estimated Creatinine Clearance 80.46 ml/min; Globulin 3.7 g/dL (2.2-4.2); Glucose 94 mg/dL (74-106); Magnesium 1.4 mg/dL (1.6-2.6); Potassium 4.1 mmol/L (3.5-5.1); Protein, Total 6.7 g/dL (6.4-8.2); Sodium Level 143 mmol/L (136-145)
[2019-11-08] MEDS: Folic Acid 1 MG Tablet PO (09:00)
[2019-11-08] MEDS: Enoxaparin 40 MG/0.4 ML Syringe SC (09:00)
[2019-11-08] MEDS: hydrOXYzine PAM 25 MG Capsule 50 MG PO (09:00)
[2019-11-08] MEDS: Thiamine Hydrochloride 100 MG Tablet PO (09:00)
--- NOTE | 2019-11-08 09:11 | PCM.PN.HOSP ---
Patient Problems: Active and Suspected Problems Alcohol abuse with intoxication (Acute) Objective: Patient was having shakiness, tremor. He also had weird dream, hallucination and distortion of the images and perception abnormality including illusion. Had some abdominal bloating/pain and nausea but no vomiting. Platelet count dropped to 90,000 therefore Lovenox discontinued Vitals/I&O's: Vital Signs Temp Pulse Resp BP Pulse Ox 97.8 F 73 18 149/95 H 96 11/08/19 08:41 11/08/19 08:41 11/08/19 08:41 11/08/19 08:41 11/08/19 08:41 Oxygen Delivery Method Room Air Weight: 196 lb 3.382 oz Body Mass Index (BMI) 30.2 Intake and Output for Last 24 Hours 11/06/19 11/07/19 11/08/19 23:59 23:59 23:59 Intake Total 1900 / 0 250 / 250 Balance 1900 / 1900 250 / 250 General: Alert, Oriented x3, Cooperative HEENT: Atraumatic, PERRLA, EOMI, Normocephalic Neck: Supple, No JVD, Negative Carotid Bruits Lungs: Clear to auscultation, No rhonchi, No wheeze, No rales, Diminished Cardiovascular: Regular rate, Regular Rhythm, Normal S1, Normal S2, No murmurs Abdomen: Bowel Sounds Present, Soft, Non Tender, Non-Distended Extremities: No edema, Capillary Refill Less than 3 Seconds Skin: No rashes, No breakdown Musculoskeletal: No Tenderness to Palpation of Joints or Extremities Neurological: Cranial nerves II-XII grossly intact, Deep Tendon Reflexes 2+/4 and Symmetrical, Neuro grossly intact Psych/Mental Status: Normal Affect, Appropriate Laboratory Results 11/07/19 11:34: WBC 4.4, RBC 4.35 L, Hgb 14.3, Hct 41.7, MCV 95.9 H, MCH 32.9 H, MCHC 34.3, RDW Std Deviation 57.6 H, RDW Coeff of Klarissa 16.2 H, Plt Count 115 L, MPV 9.3, Immature Gran % (Auto) 0.200, Neut % (Auto) 43.4 L, Lymph % (Auto) 38.5, [place] % (Auto) 12.5 H, Eos % (Auto) 4.5, Baso % (Auto) 0.9, Absolute Neuts (auto) 1.9 L, Absolute Lymphs (auto) 1.70, Nucleated RBC % 0 11/07/19 11:34: Sodium 140, Potassium 3.5, Chloride 101, Carbon Dioxide 31.0, Anion Gap 8, BUN 3 L, Creatinine 0.98, Estim Creat Clear Calc 73.07, Est GFR (MDRD) Af Amer 99, Est GFR (MDRD) Non-Af 82, BUN/Creatinine Ratio 3.0 L, Glucose 135 H, Calcium 8.3 L, Total Bilirubin 0.40, AST 288 H, ALT 146 H, Alkaline Phosphatase 91, Total Protein 7.5, Albumin 3.3, Globulin 4.2, Albumin/Globulin Ratio 0.8 L 11/07/19 11:34: Ethyl Alcohol 397.0 H* 11/07/19 11:34: PT 13.6, INR 1.1 11/07/19 11:34: Magnesium 1.9, GGT 258 H 11/07/19 11:45: Urine Opiates Screen NEGATIVE, Urine Methadone Screen NEGATIVE, Ur Barbiturates Screen NEGATIVE, Ur Phencyclidine Scrn NEGATIVE, Ur Amphetamines Screen NEGATIVE, U Methamphetamin-MDMA NEGATIVE, U Benzodiazepines Scrn NEGATIVE, Urine Cocaine Screen NEGATIVE, U Cannabinoids Screen NEGATIVE, Ur Drug Screen Comment 11/08/19 07:46: WBC 3.7 L, RBC 4.20 L, Hgb 13.5, Hct 40.2, MCV 95.7 H, MCH 32.1 H, MCHC 33.6, RDW Std Deviation 57.9 H, RDW Coeff of Klarissa 16.5 H, Plt Count 91 L, MPV 9.7, Immature Gran % (Auto) 0.300, Neut % (Auto) 60.2, Lymph % (Auto) 25.4, [place] % (Auto) 9.2, Eos % (Auto) 4.1, Baso % (Auto) 0.8, Absolute Neuts (auto) 2.2, Absolute Lymphs (auto) 0.94, Nucleated RBC % 0, Platelet Estimate SLT 11/08/19 07:46: Sodium 143, Potassium 4.1, Chloride 107, Carbon Dioxide 28.0, Anion Gap 8, BUN 5 L, Creatinine 0.89, Estim Creat Clear Calc 80.46, Est GFR (MDRD) Af Amer 111, Est GFR (MDRD) Non-Af 91, BUN/Creatinine Ratio 5.6 L, Glucose 94, Calcium 8.1 L, Phosphorus 2.0 L, Magnesium 1.4 L, Total Bilirubin 0.90, AST 261 H, ALT 129 H, Alkaline Phosphatase 85, Total Protein 6.7, Albumin 3.0 L, Globulin 3.7, Albumin/Globulin Ratio 0.8 L Current Medications Acetaminophen (Tylenol) 500 mg PO Q4H PRN PRN PRN Reason: Temp > 100.4 F Al Hydroxide/Mg Hydroxide (Mylanta Ii) 30 ml PO Q6H PRN PRN PRN Reason: dyspesia Albuterol Sulfate (Ventolin Aerosols) 2.5 mg INHALATION Q2H PRN PRN PRN Reason: SOB &/OR WHEEZING Last Admin: 11/08/19 04:44 Dose: 2.5 mg Documented by: Albuterol/Ipratropium (Duoneb) 3 ml INHALATION Q6HWA.RT JASVIR Bisacodyl (Dulcolax) 10 mg RECTAL DAILY PRN PRN Reason: Constipation Dicyclomine HCl (Bentyl) 20 mg PO Q6H PRN PRN PRN Reason: abdominal discomfort Last Admin: 11/08/19 04:15 Dose: 20 mg Documented by: Folic Acid (Folic Acid) 1 mg PO DAILY@0800 [facility] Last Admin: 11/08/19 09:00 Dose: 1 mg Documented by: Gabapentin (Neurontin) 300 mg PO Q8H PRN PRN PRN Reason: moderate to severe anxiety Last Admin: 11/08/19 04:20 Dose: 300 mg Documented by: Hydroxyzine Pamoate (Vistaril Pamoate Capsule) 50 mg PO Q4H PRN PRN PRN Reason: mild anxiety Last Admin: 11/08/19 09:00 Dose: 50 mg Documented by: Ibuprofen (Motrin) 400 mg PO Q8H PRN PRN PRN Reason: Pain Score 1-10/10 Last Admin: 11/07/19 17:06 Dose: 400 mg Documented by: Loperamide HCl (Imodium) 2 mg PO Q4H PRN PRN PRN Reason: LOOSE STOOLS Ondansetron HCl (Zofran) 8 mg PO Q8H PRN PRN PRN Reason: NAUSEA Phenobarbital (Phenobarbital) 97.2 mg PO Q4H [facility]; Taper Stop: 11/11/19 21:59 Last Admin: 11/08/19 09:00 Dose: 97.2 mg Documented by: Potassium Chloride (K-Dur) [facility] Last Admin: 11/08/19 08:59 Dose: 40 meq Documented by: Senna (Senokot) 2 tablet PO QHS PRN PRN Reason: Constipation Sodium Chloride () 10 - 40 ml IV UD PRN PRN Reason: SALINE FLUSH Thiamine HCl (Vitamin B1) [facility] Last Admin: 11/08/19 09:00 Dose: 100 mg Documented by: Trazodone HCl (Desyrel) 100 mg PO QHS PRN PRN Reason: INSOMNIA STROKE Vital Signs/Narrative: Vital Signs Temp Pulse Resp BP Pulse Ox 11/08/19 08:41 97.8 F 73 18 149/95 H 96 Medical Necessity - Tobacco Use Smoking Status: Former smoker Assessment/Plan All Active Problems Alcohol abuse with intoxication (Acute) 64-year-old, gentleman with chronic daily alcohol use of vodka 19 and COPD is admitted for acute alcohol intoxication, detoxification and high probability of acute alcohol withdrawal syndrome 1. Acute EtOH intoxication and stabilization of alcohol withdrawal syndrome:: Patient is being admitted in MedSurg floor. He is on phenobarbital regimen for alcohol withdrawal stabilization. On gabapentin for seizure prophylaxis. On other antiemetics, antihistaminic, Bentyl and Tylenol as needed. On trazodone nightly for sleep. 11/08/2019 discussed with rn field case manager for 180 assistance for transition to next level of rehabilitation care. Patient is evolving therefore IV fluid changed to D5 half NS for nutrition as patient has suboptimal food intake. 2. Electrolyte abnormality: K3.5. Potassium replacement. Magnesium 1.4: Magnesium being replaced. 3. Acute alcoholic hepatitis: Patient ALT was normal 41, AST 33 in June 2019. It is elevated, ALT/AST 146 and 288. 5/6: Slight improvement in transaminases 4 Thrombocytopenia, likely chronic since mainly from chronic alcohol use: During previous admission, platelet count of 97,000. Platelet count dropped from 115,000 -90,000. 5 COPD: Patient was advised pulmonary clinic follow-up but he did not follow-up. 6. GERD: on famotidine. 7. DVT prophylaxis: Bilateral RIA hose. DNR CC arrest. Inpatient E&M: 05826 Subs Hosp L2
--- NOTE | 2019-11-08 11:09 | NURSING ---
Pt states no need to call sister with update
[2019-11-08 14:05] VITALS: BP 140/102; PULSE 82; RESP 18; TEMP 36.7; O2SAT 94
[2019-11-08] MEDS: Dext 5%-0.45% NS 1,000 ML 50 ML IV (14:09)
[2019-11-08] MEDS: Loperamide 2 MG Capsule PO (14:09)
--- NOTE | 2019-11-08 15:55 | CASEMGMT ---
Social Work Pt seen today by Robin from [facility]. Per Robin, pt will be following up with individually counseling at 180 upon discharge. Appointment scheduled for 11/12/19 at 1400 with Rima at [facility]. IVETH Salter
--- NOTE | 2019-11-08 17:37 | NURSING ---
CIWA Q4H x24 completed- CIWA changed to Q6H per order.
[2019-11-08 20:06] VITALS: BP 155/91; PULSE 86; RESP 18; TEMP 37; O2SAT 97
[2019-11-09] VITALS (7 sets, daily range): BP systolic 123–146; BP diastolic 86–101; PULSE 68–102; RESP 16–18; TEMP 36.6–36.8; O2SAT 94–97
[2019-11-09] MEDS: Phenobarbital 32.4 MG Tablet 64.8 MG PO ×6 (02:17→22:26)
[2019-11-09] MEDS: Albuterol 2.5 MG/3 ML VIAL.NEB. INHALATION (06:40)
[2019-11-09 06:44] LABS: Absolute Neutrophil Count 1.7 X10^3/uL (2.0-7.7); Basophil# 0.02 X10^3/uL; Basophil% 0.6 % (0-1); Eosinophils% 8.8 % (0-5); Lymphocyte % 29.2 % (19-41); Mean Corp Hgb Conc 33.3 g/dL (32-36); Mean Corpuscular Volume 96.1 fL (80-94); Mean Platelet Vol. 10.7 fl (6.2-12.0); Monocyte# 0.35 X10^3/uL; Monocyte% 10.2 % (0-10); NRBC Flagged by Analyzer 0 % (0-5); Neutrophil # 1.74 X10^3/uL (2.7-7.7); Neutrophil % 50.9 % (47-70); POSITIVE COUNT YES; Platelet Count 79 K/mm3 (150-450); RBC Distribution Width CV 16.5 % (11.6-14.6); RBC Distribution Width SD 58.3 fl (35.1-43.9); Red Blood Count 4.06 M/mm3 (4.6-6.2); White Blood Count 3.4 K/mm3 (4.4-11.0)
[2019-11-09 06:47] LABS: Differential Indicated SCAN CRITERIA MET
[2019-11-09 07:09] LABS: ALB/GLOB Ratio 0.7 RATIO (0.9-2.4); AST(SGOT) 238 U/L (15-37); Alanine Aminotransfer ALT/SGPT 126 U/L (16-61); Albumin, Serum 2.9 g/dL (3.2-5.0); Alkaline Phosphatase 86 U/L (45-117); Anion Gap 6 (5-15); BUN 6 mg/dL (7-18); BUN/Creat Ratio 6.8 RATIO (10-20); Calcium,Total 8.6 mg/dL (8.5-10.1); Chloride 103 mmol/L (98-107); Creatinine, Serum 0.88 mg/dL (0.70-1.30); EST Glomerular Filtration Rate 93 mL/min (>60); Est Glom Filt Rate - Afr Amer 112 mL/min (>60); Estimated Creatinine Clearance 81.37 ml/min; Globulin 3.9 g/dL (2.2-4.2); Glucose 98 mg/dL (74-106); Magnesium 2.1 mg/dL (1.6-2.6); Potassium 3.7 mmol/L (3.5-5.1); Protein, Total 6.8 g/dL (6.4-8.2); Sodium Level 138 mmol/L (136-145)
[2019-11-09 07:10] LABS: Platelet Estimate MOD DEC (ADEQ)
--- NOTE | 2019-11-09 09:05 | PN_ITS ---
Patient Problems: Active and Suspected Problems Alcohol abuse with intoxication (Acute) Reason for Visit: Alcohol withdrawal Objective: Patient alcohol withdrawal symptoms are better today in regards to shaking, tremors. Patient still has visual hallucination and auditory hallucination. Gets weird dream. Vitals/I&O's: Vital Signs Temp Pulse Resp BP Pulse Ox 98.0 F 68 16 129/92 H 96 11/09/19 05:58 11/09/19 06:40 11/09/19 06:40 11/09/19 05:58 11/09/19 06:40 Oxygen Delivery Method Room Air Weight: 196 lb 3.382 oz Body Mass Index (BMI) 30.2 Intake and Output for Last 24 Hours 11/07/19 11/08/19 11/09/19 23:59 23:59 23:59 Intake Total 1899 / 1899 1890.67 / 2390.67 1686.67 / 1686.67 Balance 1899 / 1899 1890.67 / 2390.67 1686.67 / 1686.67 General: Alert, Oriented x3, Cooperative HEENT: Atraumatic, PERRLA, EOMI, Normocephalic Neck: Supple, No JVD, Negative Carotid Bruits Lungs: Clear to auscultation, Normal air movement Cardiovascular: Regular rate, Regular Rhythm, Normal S1, Normal S2, No murmurs Abdomen: Bowel Sounds Present, Soft, Non Tender, Non-Distended Extremities: No edema, Capillary Refill Less than 3 Seconds Skin: No rashes, No breakdown Musculoskeletal: No Tenderness to Palpation of Joints or Extremities, Arthritic Changes Neurological: Cranial nerves II-XII grossly intact, Deep Tendon Reflexes 2+/4 and Symmetrical, Neuro grossly intact Psych/Mental Status: Normal Affect, Appropriate Laboratory Results 11/09/19 06:11: WBC 3.4 L, RBC 4.06 L, Hgb 13.0, Hct 39.0 L, MCV 96.1 H, MCH 32.0, MCHC 33.3, RDW Std Deviation 58.3 H, RDW Coeff of Klarissa 16.5 H, Plt Count 79 L, MPV 10.7, Immature Gran % (Auto) 0.300, Neut % (Auto) 50.9, Lymph % (Auto) 29.2, [place] % (Auto) 10.2 H, Eos % (Auto) 8.8 H, Baso % (Auto) 0.6, Absolute Neut s (auto) 1.7 L, Absolute Lymphs (auto) 1.00, Nucleated RBC % 0, Platelet Estimate MOD 11/09/19 06:11: Sodium 138, Potassium 3.7, Chloride 103, Carbon Dioxide 29.0, Anion Gap 6, BUN 6 L, Creatinine 0.88, Estim Creat Clear Calc 81.37, Est GFR (MDRD) Af Amer 112, Est GFR (MDRD) Non-Af 93, BUN/Creatinine Ratio 6.8 L, Glucose 98, Calcium 8.6, Magnesium 2.1, Total Bilirubin 1.60 H, AST 238 H, ALT 126 H, Alkaline Phosphatase 86, Total Protein 6.8, Albumin 2.9 L, Globulin 3.9, Albumin/Globulin Ratio 0.7 L Current Medications Acetaminophen (Tylenol) 500 mg PO Q4H PRN PRN PRN Reason: Temp > 100.4 F Al Hydroxide/Mg Hydroxide (Mylanta Ii) 30 ml PO Q6H PRN PRN PRN Reason: dyspesia Albuterol Sulfate (Ventolin Aerosols) 2.5 mg INHALATION Q2H PRN PRN PRN Reason: SOB &/OR WHEEZING Last Admin: 11/09/19 06:40 Dose: 2.5 mg Documented by: Bisacodyl (Dulcolax) 10 mg RECTAL DAILY PRN PRN Reason: Constipation Dicyclomine HCl (Bentyl) 20 mg PO Q6H PRN PRN PRN Reason: abdominal discomfort Last Admin: 11/08/19 04:15 Dose: 20 mg Documented by: Folic Acid (Folic Acid) 1 mg PO DAILY@0800 [facility] Last Admin: 11/08/19 09:00 Dose: 1 mg Documented by: Gabapentin (Neurontin) 300 mg PO Q8H PRN PRN PRN Reason: moderate to severe anxiety Last Admin: 11/08/19 04:20 Dose: 300 mg Documented by: Hydroxyzine Pamoate (Vistaril Pamoate Capsule) 50 mg PO Q4H PRN PRN PRN Reason: mild anxiety Last Admin: 11/08/19 09:00 Dose: 50 mg Documented by: Ibuprofen (Motrin) 400 mg PO Q8H PRN PRN PRN Reason: Pain Score 1-10/10 Last Admin: 11/07/19 17:06 Dose: 400 mg Documented by: Loperamide HCl (Imodium) 2 mg PO Q4H PRN PRN PRN Reason: LOOSE STOOLS Last Admin: 11/08/19 14:09 Dose: 2 mg Documented by: Ondansetron HCl (Zofran) 8 mg PO Q8H PRN PRN PRN Reason: NAUSEA Phenobarbital (Phenobarbital) 64.8 mg PO Q4H [facility]; Taper Stop: 11/11/19 21:59 Last Admin: 11/09/19 05:45 Dose: 64.8 mg Documented by: Potassium Chloride (K-Dur) [facility] Last Admin: 11/08/19 08:59 Dose: 40 meq Documented by: Senna (Senokot) 2 tablet PO QHS PRN PRN Reason: Constipation Sodium Chloride () 10 - 40 ml IV UD PRN PRN Reason: SALINE FLUSH Thiamine HCl (Vitamin B1) 100 mg PO [facility]ILYUN[facility] Last Admin: 11/08/19 09:00 Dose: 100 mg Documented by: Trazodone HCl (Desyrel) 100 mg PO QHS PRN PRN Reason: INSOMNIA STROKE Vital Signs/Narrative: Vital Signs Temp Pulse Resp BP Pulse Ox 11/09/19 06:40 68 16 96 11/09/19 05:58 98.0 F 75 18 129/92 H 94 11/09/19 05:48 98.0 F 75 18 129/92 H 94 Medical Necessity - Tobacco Use Smoking Status: Former smoker Assessment/Plan All Active Problems Alcohol abuse with intoxication (Acute) 64-year-old, gentleman with chronic daily alcohol use of vodka 19 and COPD is admitted for acute alcohol intoxication, detoxification and high probability of acute alcohol withdrawal syndrome 1. Acute EtOH intoxication and stabilization of alcohol withdrawal syndrome:: Patient is being admitted in MedSurg floor. He is on phenobarbital regimen for alcohol withdrawal stabilization. On gabapentin for seizure prophylaxis. On other antiemetics, antihistaminic, Bentyl and Tylenol as needed. On trazodone nightly for sleep. 11/08/2019 discussed with director of casework for 180 assistance for transition to next level of rehabilitation care. 11/08: IV fluid discontinued. Symptoms are better controlled. 2. Electrolyte abnormality: K3.5. Potassium replacement. Magnesium 1.4: Magnesium being replaced. 11/08 Potassium replaced. Magnesium level normal 3. Acute alcoholic hepatitis: Patient ALT was normal 41, AST 33 in June 2019. It is elevated, ALT/AST 146 and 288. 11/08: Slight improvement in transaminases 11/08: Continued improvement in transaminases, mild increase in total bilirubin 1.6, that is expected. 4 Thrombocytopenia, likely chronic since mainly from chronic alcohol use: During previous admission, platelet count of 97,000. Platelet count dropped from 115,000 -90,000. 11/08: Thrombocytosis dropped to 79,000. Lovenox was discontinued. Monitor CBC 5 COPD: Patient was advised pulmonary clinic follow-up but he did not follow- up. 6. GERD: on famotidine. 7. DVT prophylaxis: Bilateral RIA hose. DNR CC arrest. Inpatient E&M: 25859 Subs Hosp L2
[2019-11-09] MEDS: Thiamine Hydrochloride 100 MG Tablet PO (09:10)
[2019-11-09] MEDS: Folic Acid 1 MG Tablet PO (09:10)
--- NOTE | 2019-11-09 14:02 | NURSING ---
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
[2019-11-09] MEDS: hydrOXYzine PAM 25 MG Capsule 50 MG PO (15:06)
[2019-11-09] MEDS: Glycerin/Hypromellose/PEG400 15 ml Bottle 2 DRP EACH EYE (17:44)
[2019-11-10 03:27] VITALS: BP 122/82; PULSE 70; RESP 18; TEMP 36.7; O2SAT 97
[2019-11-10] MEDS: Phenobarbital 32.4 MG Tablet 64.8 MG PO ×2 (03:31→09:25)
[2019-11-10 06:21] LABS: Absolute Lymphocyte Count 1.13 X10^3/uL (0.83-4.51); Absolute Neutrophil Count 2.4 X10^3/uL (2.0-7.7); Basophil# 0.03 X10^3/uL; Basophil% 0.7 % (0-1); Eosinophil# 0.35 X10^3/uL; Eosinophils% 7.8 % (0-5); Hematocrit 38.9 % (40-54); Hemoglobin 12.9 g/dL (13.0-16.5); Lymphocyte # 1.13 X10^3/ul (4.0); Lymphocyte % 25.2 % (19-41); Mean Corp Hgb Conc 33.2 g/dL (32-36); Mean Corpuscular Hgb 32.7 pg (27.0-32.0); Mean Corpuscular Volume 98.7 fL (80-94); Mean Platelet Vol. 11.1 fl (6.2-12.0); Monocyte# 0.52 X10^3/uL; Monocyte% 11.6 % (0-10); NRBC Flagged by Analyzer 0 % (0-5); Neutrophil # 2.44 X10^3/uL (2.7-7.7); Neutrophil % 54.3 % (47-70); POSITIVE COUNT YES; Platelet Count 74 K/mm3 (150-450); RBC Distribution Width SD 61.5 fl (35.1-43.9); Red Blood Count 3.94 M/mm3 (4.6-6.2); White Blood Count 4.5 K/mm3 (4.4-11.0)
[2019-11-10 06:35] LABS: ALB/GLOB Ratio 0.7 RATIO (0.9-2.4); AST(SGOT) 200 U/L (15-37); Alanine Aminotransfer ALT/SGPT 113 U/L (16-61); Albumin, Serum 2.9 g/dL (3.2-5.0); Alkaline Phosphatase 86 U/L (45-117); Anion Gap 7 (5-15); BUN 6 mg/dL (7-18); BUN/Creat Ratio 7.1 RATIO (10-20); Calcium,Total 8.6 mg/dL (8.5-10.1); Chloride 104 mmol/L (98-107); Creatinine, Serum 0.84 mg/dL (0.70-1.30); EST Glomerular Filtration Rate 98 mL/min (>60); Est Glom Filt Rate - Afr Amer 118 mL/min (>60); Estimated Creatinine Clearance 85.25 ml/min; Globulin 3.9 g/dL (2.2-4.2); Glucose 86 mg/dL (74-106); Potassium 3.8 mmol/L (3.5-5.1); Protein, Total 6.8 g/dL (6.4-8.2); Sodium Level 138 mmol/L (136-145)
[2019-11-10 06:45] LABS: Differential Indicated SCAN CRITERIA MET
[2019-11-10 07:13] VITALS: PULSE 80; RESP 16; O2SAT 96
[2019-11-10] MEDS: Albuterol 2.5 MG/3 ML VIAL.NEB. INHALATION (07:13)
--- NOTE | 2019-11-10 08:01 | DCINST_ITS ---
- Discharge Diagnoses Current Active Problems: Current Active and Chronic Problems Alcohol abuse with intoxication (Acute) Thrombocytopenia (Chronic) Chronic alcoholic hepatitis (Chronic) You will use the following diet at home:: Regular Discharge Activity: May Not Drive Call your doctor if you observe: Fever of 101 or Higher, Numbness or Tingling, Inability to urinate, Inability to have a bowel movement, Shortness of breath, Dizziness, Fainting spells, Swelling in the ankles, Chest pain, Prolonged hiccoughing, Increased palpitations (irregular heartbeat) Additional Instructions: F/U 180 for alchol withdrawal Allergies/Adverse Reactions: Allergies oxycodone [From Percocet] Allergy (Verified 11/07/19 11:20) Hives lorazepam [From Ativan] Adverse Reaction (Verified 11/07/19 11:20) HALLUCINATIONS Medications to take at Discharge Fluticasone/Vilanterol [Breo Ellipta 100-25 Mcg INH] 1 puff INHALATION PRN 11/07/19 Folic Acid 1 mg PO DAILY@0800 tablet 11/10/19 Thiamine Hydrochloride [Vitamin B1] 100 mg PO DAILYCM tablet 11/10/19 Primary Care Physician: Care Physician,No Primary [Primary Care Provider] - Please follow up with your Primary Care Physician in: in 2 week Test Results: Test results from this visit will be discussed in further detail at your follow- up appointment, if applicable.
--- NOTE | 2019-11-10 08:03 | PCM.DC.SUM ---
Discharge Date and Diagnosis Date of Admission: 11/07/19 Date of Discharge: 11/10/19 - Primary Discharge Diagnosis Acute Problems: Active Problems Alcohol abuse with intoxication (Acute) - Secondary Discharge Diagnosis Chronic Problems: Chronic Problems Alcohol withdrawal (Chronic) COPD (chronic obstructive pulmonary disease) (Chronic) Former tobacco use (Chronic) Thrombocytopenia (Chronic) Chronic alcoholic hepatitis (Chronic) Hospital Course and Treatment Summary of Care Provided: [] 64-year-old, gentleman with chronic daily alcohol use of vodka 19 and COPD is admitted for acute alcohol intoxication, detoxification and high probability of acute alcohol withdrawal syndrome 1. Acute EtOH intoxication and stabilization of alcohol withdrawal syndrome:: Patient is being admitted in MedSurg floor. He is on phenobarbital regimen for alcohol withdrawal stabilization. On gabapentin for seizure prophylaxis. On other antiemetics, antihistaminic, Bentyl and Tylenol as needed. Patient has follow-up with 180 assistance on 11/12/2019. 2. Electrolyte abnormality: K3.5. . Mild hypokalemia and hypomagnesemia: Potassium and magnesium were replaced. 3. Acute alcoholic hepatitis: Patient ALT was normal 41, AST 33 in June 2019. It is elevated, ALT/AST 146 and 288. Gradual improvement in transaminases but total bili increased which is expected course of alcoholic hepatitis. Patient was strongly advised for alcohol quitting and follow-up with 180. Follow-up with PCP for further monitoring of liver chemistry test and ultrasound and viral hepatitis panel 4 Thrombocytopenia, likely chronic since mainly from chronic alcohol use: During previous admission, platelet count of 97,000. Platelet count is stable between 70,000 -90,000. 5 COPD: Patient was advised pulmonary clinic follow-up but he did not follow-up. 6. GERD: on famotidine. 7. DVT prophylaxis: Bilateral RIA hose. Discharge medication reconciliation done. Discharge follow-up instructions completed. Discharge process discussed with the patient and all questions were answered to patient's satisfaction. Total time spent, exact 35 minutes on discharge meds reconciliation, examination, coordination of care with nurses and ancillary staff, review of imaging and blood test and discussion with the patient on follow-up instructions Objective: Seen and examined. Patient does not have tremors, nausea, vomiting, abdominal discomfort or diarrhea. Withdrawal symptoms are well controlled. On physical exam General: Alert, Oriented x3, Cooperative HEENT: Atraumatic, PERRLA, EOMI, Normocephalic Neck: Supple, No JVD, Negative Carotid Bruits Lungs: Clear to auscultation, Normal air movement Cardiovascular: Regular rate, Regular Rhythm, Normal S1, Normal S2, No murmurs Abdomen: Bowel Sounds Present, Soft, Non Tender, Non-Distended Extremities: No edema, Capillary Refill Less than 3 Seconds Skin: No rashes, No breakdown Musculoskeletal: No Tenderness to Palpation of Joints or Extremities, Arthritic Changes Neurological: Cranial nerves II-XII grossly intact, Deep Tendon Reflexes 2+/4 and Symmetrical, Neuro grossly intact Psych/Mental Status: Normal Affect, Appropriate - Physical Exam Vitals/I&O's: Vital Signs Temp Pulse Resp BP Pulse Ox 98.1 F 70 18 122/82 H 97 11/10/19 03:27 11/10/19 03:27 11/10/19 03:27 11/10/19 03:27 11/10/19 03:27 Oxygen Delivery Method Room Air Weight: 196 lb 3.382 oz Body Mass Index (BMI) 30.2 Intake and Output for Last 24 Hours 11/08/19 11/09/19 11/10/19 23:59 23:59 23:59 Intake Total 1890.67 / 2390.67 2711.67 / 2711.67 640 / 640 Balance 1890.67 / 2390.67 2711.67 / 2711.67 640 / 640 Laboratory Results 11/10/19 05:48: WBC 4.5, RBC 3.94 L, Hgb 12.9 L, Hct 38.9 L, MCV 98.7 H, MCH 32.7 H, MCHC 33.2, RDW Std Deviation 61.5 H, RDW Coeff of Klarissa 17.0 H, Plt Count 74 L, MPV 11.1, Immature Gran % (Auto) 0.400, Neut % (Auto) 54.3, Lymph % (Auto) 25.2, [place] % (Auto) 11.6 H, Eos % (Auto) 7.8 H, Baso % (Auto) 0.7, Absolute Neuts (auto) 2.4, Absolute Lymphs (auto) 1.13, Nucleated RBC % 0 11/10/19 05:48: Sodium 138, Potassium 3.8, Chloride 104, Carbon Dioxide 27.0, Anion Gap 7, BUN 6 L, Creatinine 0.84, Estim Creat Clear Calc 85.25, Est GFR (MDRD) Af Amer 118, Est GFR (MDRD) Non-Af 98, BUN/Creatinine Ratio 7.1 L, Glucose 86, Calcium 8.6, Total Bilirubin 2.10 H, AST 200 H, ALT 113 H, Alkaline Phosphatase 86, Total Protein 6.8, Albumin 2.9 L, Globulin 3.9, Albumin/Globulin Ratio 0.7 L Current Medications Acetaminophen (Tylenol) 500 mg PO Q4H PRN PRN PRN Reason: Temp > 100.4 F Al Hydroxide/Mg Hydroxide (Mylanta Ii) 30 ml PO Q6H PRN PRN PRN Reason: dyspesia Albuterol Sulfate (Ventolin Aerosols) 2.5 mg INHALATION Q2H PRN PRN PRN Reason: SOB &/OR WHEEZING Last Admin: 11/10/19 07:13 Dose: 2.5 mg Documented by: Bisacodyl (Dulcolax) 10 mg RECTAL DAILY PRN PRN Reason: Constipation Dicyclomine HCl (Bentyl) 20 mg PO Q6H PRN PRN PRN Reason: abdominal discomfort Last Admin: 11/08/19 04:15 Dose: 20 mg Documented by: Folic Acid (Folic Acid) 1 mg PO DAILY@0800 JASVIR Last Admin: 11/09/19 09:10 Dose: 1 mg Documented by: Gabapentin (Neurontin) 300 mg PO Q8H PRN PRN PRN Reason: moderate to severe anxiety Last Admin: 11/08/19 04:20 Dose: 300 mg Documented by: Hydroxyzine Pamoate (Vistaril Pamoate Capsule) 50 mg PO Q4H PRN PRN PRN Reason: mild anxiety Last Admin: 11/09/19 15:06 Dose: 50 mg Documented by: Ibuprofen (Motrin) 400 mg PO Q8H PRN PRN PRN Reason: Pain Score 1-10/10 Last Admin: 11/07/19 17:06 Dose: 400 mg Documented by: Loperamide HCl (Imodium) 2 mg PO Q4H PRN PRN PRN Reason: LOOSE STOOLS Last Admin: 11/08/19 14:09 Dose: 2 mg Documented by: Ondansetron HCl (Zofran) 8 mg PO Q8H PRN PRN PRN Reason: NAUSEA Phenobarbital (Phenobarbital) 64.8 mg PO Q6H [facility]; Taper Stop: 11/11/19 21:59 Last Admin: 11/10/19 03:31 Dose: 64.8 mg Documented by: Potassium Chloride (K-Dur) 40 meq PO DAILYCM [facility] Last Admin: 11/09/19 09:10 Dose: 40 meq Documented by: Senna (Senokot) 2 tablet PO QHS PRN PRN Reason: Constipation Sodium Chloride () 10 - 40 ml IV UD PRN PRN Reason: SALINE FLUSH Thiamine HCl (Vitamin B1) [facility] Last Admin: 11/09/19 09:10 Dose: 100 mg Documented by: Trazodone HCl (Desyrel) 100 mg PO QHS PRN PRN Reason: INSOMNIA Discharge Activity: May Not Drive Call your doctor if you observe: Fever of 101 or Higher, Numbness or Tingling, Inability to urinate, Inability to have a bowel movement, Shortness of breath, Dizziness, Fainting spells, Swelling in the ankles, Chest pain, Prolonged hiccoughing, Increased palpitations (irregular heartbeat) Home Medications: Medications to take at Discharge Fluticasone/Vilanterol [Breo Ellipta 100-25 Mcg INH] 1 puff INHALATION PRN 11/07/19 Folic Acid 1 mg PO DAILY@0800 tab 11/10/19 Thiamine Hydrochloride [Vitamin B1] 100 mg PO DAILYCM tab 11/10/19 Primary Care Physician: Care Physician,No Primary [Primary Care Provider] - Please follow up with your Primary Care Physician in: in 2 week Medical Necessity - Tobacco Use Smoking Status: Former smoker Meaningful Use Info Meaningful Use Diagnoses (Choose all that apply): None applicable Inpatient E&M: 21098 Disch Hosp
[2019-11-10 08:16] LABS: Differential Comment SCANNED; Platelet Estimate MOD DEC (ADEQ)
[2019-11-10 09:11] VITALS: BP 127/91; PULSE 101; RESP 16; TEMP 36.8; O2SAT 95
[2019-11-10] MEDS: Folic Acid 1 MG Tablet PO (09:23)
[2019-11-10] MEDS: Thiamine Hydrochloride 100 MG Tablet PO (09:24)
== END 2019-11-10 10:56 | disposition home or self-care (01) | DRG 897 ==
LOC: ED 11:36 → MS3 12:18
PROVIDERS: Admitting Provider Internal Medicine; Emergency Provider Emergency Medicine; Visit Provider Internal Medicine
DX: F10.239 Alcohol dependence with withdrawal, unspecified (principal); F10.229 Alcohol dependence with intoxication, unspecified; K70.10 Alcoholic hepatitis without ascites; Y90.8 Blood alcohol level of 240 mg/100 ml or more; J44.9 Chronic obstructive pulmonary disease, unspecified; D69.6 Thrombocytopenia, unspecified; E87.6 Hypokalemia; E83.42 Hypomagnesemia; K21.9 Gastro-esophageal reflux disease without esophagitis; Z66 Do not resuscitate; Z87.891 Personal history of nicotine dependence
CPT/HCPCS: 36415; 80053; 80307; 80320; 82977; 83735; 84100; 85025; 85610; 94640; 99284; J7120; A4216; G0480; J7799

== ENCOUNTER 2019-12-03 11:24 | Inpatient (IN) | payer OTHER, SELFPAY ==
[2019-11-07 13:24] VITALS: BMI 30.2
[2019-12-03 11:25] VITALS: BP 129/90; PULSE 94; RESP 16; TEMP 36.2; O2SAT 95; BMI 28.8
--- NOTE | 2019-12-03 12:10 | ED.VISSUMM ---
- ER Visit Summary Date of Service: 12/03/19 Chief Complaint: Alcohol detox History of Present Illness: The patient is a 64 M who presents requesting alcohol detox. Patient states his last drink was approximately 3 hours prior to arrival. Patient states he drinks proxy 1/5 of liquor per day. Patient states his last detox was 3 weeks ago and he started drinking as soon as he got out. Patient denies any shaking, nausea, vomiting, palpitations, or chills. Patient denies any chest pain. Patient denies any suicidal homicidal ideations. Patient denies any anxiety. Physical Examination: Vital signs are stable. Patient is afebrile. Patient is in no acute distress. Oral mucosa is pink and moist. Neck is supple. Trachea is midline. There is no JVD noted. Heart was regular rate and rhythm. Lungs are clear and equal bilaterally. Abdomen is soft. Bowel sounds are normal. There is no tenderness. There is no rebound or guarding noted. Skin is warm dry. Cranial nerves II through XII are intact. There are no focal motor or sensory deficits noted. Extremities are intact. There is no calf tenderness or edema. Test Results: CBC shows a mild anemia with a hemoglobin of 12.9 hematocrit 38.1. Platelets were 65. Comprehensive metabolic profile showed a slightly low sodium of 135 and chloride of 97. ALT was 170 and AST was 378. Urinalysis does not show any evidence of urinary tract infection. Serum alcohol level was elevated at 300. Urine tox screen was positive for barbiturates. Emergency Department Course and Treatment: Case was discussed with the hospitalist. She will admit the patient to her service. Social work was also in to evaluate the patient. Patient will go to 90-day inpatient rehab after detox. Patient understands and is agreeable with the plan. All questions were answered. Disposition: Admit to hospital Impression: 1. Alcohol withdrawal This note was generated with [employer] dictation software. It may contain incorrect words, spelling, and punctuation that were not noted in review of the chart prior to signing ED Disposition - Plan for ED Patient: Disposition: Acute Care Hospital [facility] Diagnosis: Alcohol withdrawal Referrals: Care Physician,No Primary [Primary Care Provider] -
[2019-12-03 12:34] LABS: Absolute Lymphocyte Count 0.79 X10^3/uL (0.83-4.51); Absolute Neutrophil Count 2.3 X10^3/uL (2.0-7.7); Basophil# 0.03 X10^3/uL; Basophil% 0.8 % (0-1); Eosinophil# 0.06 X10^3/uL; Eosinophils% 1.7 % (0-5); Hematocrit 38.1 % (40-54); Hemoglobin 12.9 g/dL (13.0-16.5); Lymphocyte # 0.79 X10^3/ul (4.0); Lymphocyte % 22.3 % (19-41); Mean Corp Hgb Conc 33.9 g/dL (32-36); Mean Corpuscular Hgb 32.8 pg (27.0-32.0); Mean Corpuscular Volume 96.9 fL (80-94); Mean Platelet Vol. 10.4 fl (6.2-12.0); Monocyte# 0.35 X10^3/uL; Monocyte% 9.9 % (0-10); NRBC Flagged by Analyzer 0 % (0-5); Neutrophil % 64.7 % (47-70); POSITIVE COUNT YES; Platelet Count 65 K/mm3 (150-450); RBC Distribution Width CV 15.3 % (11.6-14.6); RBC Distribution Width SD 54.9 fl (35.1-43.9); Red Blood Count 3.93 M/mm3 (4.6-6.2); White Blood Count 3.6 K/mm3 (4.4-11.0)
[2019-12-03 12:36] LABS: Differential Indicated SCAN CRITERIA MET
[2019-12-03 12:47] LABS: ALB/GLOB Ratio 0.8 RATIO (0.9-2.4); AST(SGOT) 378 U/L (15-37); Alanine Aminotransfer ALT/SGPT 170 U/L (16-61); Albumin, Serum 3.3 g/dL (3.2-5.0); Alkaline Phosphatase 84 U/L (45-117); Anion Gap 15 (5-15); BUN 12 mg/dL (7-18); BUN/Creat Ratio 13.4 RATIO (10-20); Calcium,Total 8.2 mg/dL (8.5-10.1); Chloride 97 mmol/L (98-107); EST Glomerular Filtration Rate 91 mL/min (>60); Est Glom Filt Rate - Afr Amer 110 mL/min (>60); Estimated Creatinine Clearance 82.33 ml/min; Globulin 4.1 g/dL (2.2-4.2); Glucose 69 mg/dL (74-106); Potassium 3.6 mmol/L (3.5-5.1); Protein, Total 7.4 g/dL (6.4-8.2); Sodium Level 135 mmol/L (136-145)
[2019-12-03 12:53] LABS: Platelet Estimate MOD DEC (ADEQ)
--- NOTE | 2019-12-03 13:00 | CM.ED ---
SOCIAL WORK Reason for Consult: Detox Living situation: Home alone Marital/Social History: Mental Health History: Patient denies any history of mental health. Substance Abuse History: Patient reports started drinking at the age of 18. Patient states I would get black out drunk which lead to coke and acid. I've tried everything, just never heroin because I don't like needles. Patient reports at the age of 29 stopped drinking for 18 years. Patient states has been to [facility] 8 times. Patient reports just completed detox here 3 weeks ago and was doing well when first got out of hospital. Patient states spoke with Rima with [facility] this morning and was advised to come in. Patient reports, I failed outpatient. I need to complete 90 day inpatient program. Collaboration with Dr. Molina. Patient was seen at [facility] today and sent in for medical withdraw management. Patient wishes to complete 90 program with [facility] after detox. Plan: Anticipate admission to [facility] Koehler, RAJANI, WINDOWS MOBILE DEVELOPER
[2019-12-03 13:02] LABS: Bacteria 0 SEEN /hpf (None Seen); Mucous, Urine 0 SEEN /hpf (<or=2+); Red Blood Cells-Urine 0 SEEN /hpf (0-5); Squamous Epithelial Cells - UA 0 SEEN /hpf (0-5); White Blood Cells 0 SEEN /hpf (0-5)
[2019-12-03 13:10] LABS: Color, Urine Yellow (Yellow); Glucose, Dipstick Normal (Normal); Ketone-Dipstick 150 mg/dl (Negative); Leukocyte Esterase-Dipstick Negative /ul (Negative); Nitrite-Dipstick Negative (Negative); Occult Blood-Urine 150 /ul (Negative); Protein-Dipstick 500 mg/dl (Negative); Specific Gravity, Urine 1.015 (1.002-1.030); Urine Bilirubin Dipstick Negative (Negative); Urine Clarity Clear (Clear); Urine Urobilinogen 1 mg/dl (Normal)
[2019-12-03 13:12] LABS: Fine Granular Cast- Urine 10-25 SEEN /lpf (0-5)
[2019-12-03 13:14] LABS: Amphetamine Urine VISTA NEGATIVE (<1000 ng/mL); Barbiturate Urine VISTA POSITIVE (< 200 ng/mL); Benzodiazepine Urine VISTA NEGATIVE (< 200 ng/mL); Cocaine Urine VISTA NEGATIVE (< 300 ng/mL); Ecstacy Urine VISTA NEGATIVE (< 500 ng/mL); Methadone Urine VISTA NEGATIVE (< 300 ng/mL); PCP Urine VISTA NEGATIVE (< 25 ng/mL); THC Urine VISTA NEGATIVE (< 50 ng/mL); Vista UDS pH Range 6
--- NOTE | 2019-12-03 13:23 | NURSING ---
MED SURG GABBY ALCOHOL WITHDRAWAL
--- NOTE | 2019-12-03 13:33 | CM.ED ---
SOCIAL WORK Call to Kathy at [facility]. Left message on confidential voicemail updating patient admitted to [facility] for alcohol detox. Ovi Koehler, TABLEAU LEAD, MEETING PLANNER
[2019-12-03 14:01] VITALS: BMI 29.0
[2019-12-03 14:08] VITALS: BMI 29.0
[2019-12-03 14:36] VITALS: BP 139/80; PULSE 66; RESP 18; TEMP 36.6; O2SAT 94
[2019-12-03] MEDS: Phenobarbital 32.4 MG Tablet 64.8 MG PO ×3 (14:43→22:29)
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
--- NOTE | 2019-12-03 15:46 | CASEMGMT ---
Social Work Note Lizeth from [facility] saw pt. Lizeth states she will be back tomorrow to complete assessment with pt. Pt plans on doing residential at [facility] at discharge. Aminah Bermeo POCKET SETTER LOCKSTITCH, DONOR RELATIONS ASSOCIATE
[2019-12-03] MEDS: Budesonide Respules 0.5 MG/2 ML AMPUL.NEB. INHALATION (19:40)
[2019-12-03] MEDS: Albuterol 2.5 MG/3 ML VIAL.NEB. INHALATION (19:40)
[2019-12-03 19:42] VITALS: PULSE 85; RESP 16
[2019-12-03 22:27] VITALS: BP 119/88; PULSE 94; RESP 18; TEMP 36.8; O2SAT 98
[2019-12-04] VITALS (8 sets, daily range): BP systolic 115–142; BP diastolic 82–98; PULSE 69–85; RESP 16–19; TEMP 36.6–36.9; O2SAT 92–95
[2019-12-04] MEDS: Phenobarbital 32.4 MG Tablet 64.8 MG PO ×6 (02:52→22:09)
[2019-12-04] MEDS: Ondansetron ODT 4 MG Tablet 8 MG PO (06:32)
[2019-12-04] MEDS: hydrOXYzine PAM 25 MG Capsule 50 MG PO (06:44)
[2019-12-04] MEDS: Gabapentin 300 MG Capsule PO (06:44)
[2019-12-04] MEDS: Albuterol 2.5 MG/3 ML VIAL.NEB. INHALATION ×2 (07:01→21:01)
[2019-12-04] MEDS: Budesonide Respules 0.5 MG/2 ML AMPUL.NEB. INHALATION ×2 (07:02→21:01)
--- NOTE | 2019-12-04 07:06 | PCM.PN.HOSP ---
Reason for Visit: Acute alcohol withdrawal Subjective: Patient is a 65-year-old gentleman with history of chronic alcohol dependence presented with acute alcohol withdrawal admitted to regular nursing floor where patient is currently undergoing medical stabilization Objective: GENERAL: cooperative HEENT: Atraumatic; EYES; Anicteric, Normal Conjunctiva NECK; supple, normal thyroid, RESPIRATORY: Diminished to auscultation CARDIOVASCULAR: Regular S1 S2, GI: soft, normoactive bowel sounds, : No Renal angle tenderness; EXTREMITIES: No edema, no clubbing, MUSCULOSKELETAL: no muscle waisting NEURO: Awake; no lateralizing signs. SKIN: No Rash PSYCH; Flat affect Vitals/I&O's: Vital Signs Temp Pulse Resp BP Pulse Ox 97.9 F 84 19 H 131/89 H 92 12/04/19 06:35 12/04/19 07:01 12/04/19 07:01 12/04/19 06:35 12/04/19 07:01 Oxygen Delivery Method Room Air Weight: 82.871 kg Body Mass Index (BMI) 29.0 Intake and Output for Last 24 Hours 12/02/19 12/03/19 12/04/19 23:59 23:59 23:59 Intake Total 240 / 440 300 / 300 Balance 240 / 440 300 / 300 Laboratory Results 12/03/19 12:20: WBC 3.6 L, RBC 3.93 L, Hgb 12.9 L, Hct 38.1 L, MCV 96.9 H, MCH 32.8 H, MCHC 33.9, RDW Std Deviation 54.9 H, RDW Coeff of Klarissa 15.3 H, Plt Count 65 L, MPV 10.4, Immature Gran % (Auto) 0.600, Neut % (Auto) 64.7, Lymph % (Auto) 22.3, [place] % (Auto) 9.9, Eos % (Auto) 1.7, Baso % (Auto) 0.8, Absolute Neuts (auto) 2.3, Absolute Lymphs (auto) 0.79 L, Nucleated RBC % 0, Platelet Estimate MOD DEC 12/03/19 12:20: Sodium 135 L, Potassium 3.6, Chloride 97 L, Carbon Dioxide 23.0, Anion Gap 15, BUN 12, Creatinine 0.90, Estim Creat Clear Calc 82.33, Est GFR (MDRD) Af Amer 110, Est GFR (MDRD) Non-Af 91, BUN/Creatinine Ratio 13.4, Glucose 69 L, Calcium 8.2 L, Total Bilirubin 0.80, AST 378 H, ALT 170 H, Alkaline Phosphatase 84, Total Protein 7.4, Albumin 3.3, Globulin 4.1, Albumin/Globulin Ratio 0.8 L 12/03/19 12:20: Ethyl Alcohol 300.0 12/03/19 12:55: Urine Color Yellow, Urine Clarity Clear, Urine pH 6.0, Ur Specific [place] 1.015, Urine Protein 500 H, Urine Glucose (UA) Normal, Urine Ketones 150 H, Urine Occult Blood 150 H, Urine Nitrite Negative, Urine Bilirubin Negative, Urine Urobilinogen 1 H, Ur Leukocyte Esterase Negative, Urine RBC 0 SEEN, Urine WBC 0 SEEN, Ur Squamous Epith Cells 0 SEEN, Urine Bacteria 0 SEEN, Fine Granular Casts 10-25 SEEN, Urine Mucus 0 SEEN 12/03/19 12:55: Urine Opiates Screen NEGATIVE, Urine Methadone Screen NEGATIVE, Ur Barbiturates Screen POSITIVE H, Ur Phencyclidine Scrn NEGATIVE, Ur Amphetamines Screen NEGATIVE, U Methamphetamin-MDMA NEGATIVE, U Benzodiazepines Scrn NEGATIVE, Urine Cocaine Screen NEGATIVE, U Cannabinoids Screen NEGATIVE, Ur Drug Screen Comment 12/04/19 06:24: WBC Pending, RBC Pending, Hgb Pending, Hct Pending, MCV Pending, MCH Pending, MCHC Pending, RDW Std Deviation Pending, RDW Coeff of Klarissa Pending, Plt Count Pending 12/04/19 06:24: Sodium Pending, Potassium Pending, Chloride Pending, Carbon Dioxide Pending, Anion Gap Pending, BUN Pending, Creatinine Pending, Est GFR (MDRD) Af Amer Pending, Est GFR (MDRD) Non-Af Pending, BUN/Creatinine Ratio Pending, Glucose Pending, Calcium Pending, Total Bilirubin Pending, AST Pending, ALT Pending, Alkaline Phosphatase Pending, Total Protein Pending, Albumin Pending Current Medications Albuterol Sulfate (Ventolin Aerosols) 2.5 mg INHALATION Q6HWA.RT [facility] Last Admin: 12/04/19 07:01 Dose: 2.5 mg Documented by: Budesonide (Pulmicort Aerosol) 0.5 mg INHALATION Q12H.RT [facility] Last Admin: 12/04/19 07:02 Dose: 0.5 mg Documented by: Dicyclomine HCl (Bentyl) 20 mg PO Q6H PRN PRN PRN Reason: abdominal discomfort Folic Acid (Folic Acid) 1 mg PO DAILY@0800 [facility] Gabapentin (Neurontin) 300 mg PO Q8H PRN PRN PRN Reason: moderate to severe anxiety Last Admin: 12/04/19 06:44 Dose: 300 mg Documented by: Hydroxyzine Pamoate (Vistaril Pamoate Capsule) 50 mg PO Q4H PRN PRN PRN Reason: mild anxiety Last Admin: 12/04/19 06:44 Dose: 50 mg Documented by: Loperamide HCl (Imodium) 2 mg PO Q4H PRN PRN PRN Reason: LOOSE STOOLS Multivitamins/Minerals (Multivitamin With Minerals (Bkc)) 1 tablet PO DAILYCM [facility] Nicotine (Nicoderm Cq (Pbkc)) 14 mg TRANSDERM. DAILY [facility] Last Admin: 12/03/19 16:06 Dose: 14 mg Documented by: Nutritional Formula (Lactose Free) (Ensure Enlive) 120 ml PO 4X/DAY [facility] Last Admin: 12/03/19 22:29 Dose: 120 ml Documented by: Ondansetron HCl (Zofran Odt) 8 mg PO Q8H PRN PRN PRN Reason: NAUSEA Last Admin: 12/04/19 06:32 Dose: 8 mg Documented by: Phenobarbital (Phenobarbital) 97.2 mg PO Q4H [facility]; Taper Stop: 12/07/19 22:29 Last Admin: 12/04/19 06:30 Dose: 97.2 mg Documented by: Sodium Chloride () 10 - 40 ml IV UD PRN PRN Reason: SALINE FLUSH Thiamine HCl (Vitamin B1) 100 mg PO DAILYCM [facility] Trazodone HCl (Desyrel) 100 mg PO QHS PRN PRN Reason: INSOMNIA STROKE Vital Signs/Narrative: Vital Signs Temp Pulse Resp BP Pulse Ox 12/04/19 07:01 84 19 H 92 12/04/19 06:35 97.9 F 72 18 131/89 H 95 Medical Necessity - Tobacco Use Smoking Status: Former smoker - cigarettes Tobacco Use: Chew - 1-2 cans per week Assessment/Plan All Active Problems Alcohol abuse with intoxication (Acute) Patient is a 65-year-old gentleman with history of chronic alcohol dependence presented with acute alcohol withdrawal admitted to regular nursing floor where patient is currently undergoing medical stabilization 1. Acute alcohol withdrawal ?Admitted to the regular nursing floor where patient is currently being managed with phenobarb for medical stabilization. Plan is for patient to follow-up with 180 following his discharge 2. Pancytopenia ?Attributed to patient chronic alcohol abuse monitoring counts 3. Acute alcoholic hepatitis Appears to still have some chronicity we will continue to monitor 4. COPD ?Currently not in exacerbation we will continue with home inhalers 5. Tobacco dependence (chews tobacco) - Counseled on cessation, offered nicotine patch for tobacco cravings 6. DVT prophylaxis ?Did encourage early ambulation plus SCDs Inpatient E&M: 04682 Subs Hosp L2
[2019-12-04 07:11] LABS: Hematocrit 37.8 % (40-54); Hemoglobin 12.9 g/dL (13.0-16.5); Mean Corp Hgb Conc 34.1 g/dL (32-36); Mean Corpuscular Hgb 32.7 pg (27.0-32.0); Mean Corpuscular Volume 95.9 fL (80-94); Mean Platelet Vol. 11.1 fl (6.2-12.0); POSITIVE COUNT YES; Platelet Count 56 K/mm3 (150-450); RBC Distribution Width CV 15.3 % (11.6-14.6); RBC Distribution Width SD 54.5 fl (35.1-43.9); Red Blood Count 3.94 M/mm3 (4.6-6.2); White Blood Count 3.5 K/mm3 (4.4-11.0)
[2019-12-04 07:42] LABS: Scan Indicated on CBC? Y/N YES- FLAGS NOTED
[2019-12-04 07:47] LABS: ALB/GLOB Ratio 0.8 RATIO (0.9-2.4); AST(SGOT) 380 U/L (15-37); Alanine Aminotransfer ALT/SGPT 178 U/L (16-61); Albumin, Serum 3.2 g/dL (3.2-5.0); Alkaline Phosphatase 85 U/L (45-117); Anion Gap 13 (5-15); BUN 14 mg/dL (7-18); BUN/Creat Ratio 15.2 RATIO (10-20); Calcium,Total 8.7 mg/dL (8.5-10.1); Chloride 97 mmol/L (98-107); Creatinine, Serum 0.92 mg/dL (0.70-1.30); EST Glomerular Filtration Rate 88 mL/min (>60); Est Glom Filt Rate - Afr Amer 106 mL/min (>60); Estimated Creatinine Clearance 75.13 ml/min; Globulin 4.2 g/dL (2.2-4.2); Glucose 86 mg/dL (74-106); Potassium 3.7 mmol/L (3.5-5.1); Protein, Total 7.4 g/dL (6.4-8.2); Sodium Level 134 mmol/L (136-145)
[2019-12-04 09:34] LABS: Differential Comment SCANNED
[2019-12-04] MEDS: Thiamine Hydrochloride 100 MG Tablet PO (09:44)
[2019-12-04] MEDS: Multivitamins,Ther W-Minerals Tablet 1 TABLET PO (09:44)
[2019-12-04] MEDS: Folic Acid 1 MG Tablet PO (09:44)
--- NOTE | 2019-12-04 13:09 | ADDICTION ---
This chief writer attempted to meet with patient in his room. He was asleep during both attempts and did not rouse to verbal que. Patient expressed interest in Residential treatment (yesterday) with [facility] and has been approved for admittance following completion of medical withdrawal management. Patient is scheduled to admit into [facility] on MondayDecember 08 due to holiday hours. This chief writer will attempt to meet with patient tomorrow 12/05/2019 to continue to process discharge planning. .
--- NOTE | 2019-12-04 15:33 | NURSING ---
pt refused wanting anyone updated about pt current condition.
[2019-12-05] VITALS (9 sets, daily range): BP systolic 118–127; BP diastolic 80–96; PULSE 81–113; RESP 12–20; TEMP 36.6–36.8; O2SAT 94–96
[2019-12-05] MEDS: Phenobarbital 32.4 MG Tablet 64.8 MG PO ×6 (02:37→22:22)
[2019-12-05] MEDS: Albuterol 2.5 MG/3 ML VIAL.NEB. INHALATION ×3 (07:10→19:29)
[2019-12-05] MEDS: Budesonide Respules 0.5 MG/2 ML AMPUL.NEB. INHALATION ×2 (07:11→19:30)
--- NOTE | 2019-12-05 07:20 | PN_ITS ---
Reason for Visit: acute alcohol withdrawal Subjective: patient seen less tremulous compared to the previous day Objective: GENERAL: cooperative HEENT: Atraumatic; EYES; Anicteric, Normal Conjunctiva NECK; supple, normal thyroid, RESPIRATORY: Diminished to auscultation CARDIOVASCULAR: Regular S1 S2, GI: soft, normoactive bowel sounds, : No Renal angle tenderness; EXTREMITIES: No edema, no clubbing, MUSCULOSKELETAL: no muscle waisting NEURO: Awake; no lateralizing signs. SKIN: No Rash PSYCH; Flat affect Vitals/I&O's: Vital Signs Temp Pulse Resp BP Pulse Ox 97.9 F 105 H 16 127/89 H 95 12/05/19 04:00 12/05/19 04:00 12/05/19 04:00 12/05/19 04:00 12/05/19 04:00 Oxygen Delivery Method Room Air Weight: 82.871 kg Body Mass Index (BMI) 29.0 Intake and Output for Last 24 Hours 12/03/19 12/04/19 12/05/19 23:59 23:59 23:59 Intake Total 240 / 440 1300 / 1900 1050 / 1050 Balance 240 / 440 1300 / 1900 1050 / 1050 Laboratory Results 12/04/19 06:24: WBC 3.5 L, RBC 3.94 L, Hgb 12.9 L, Hct 37.8 L, MCV 95.9 H, MCH 32.7 H, MCHC 34.1, RDW Std Deviation 54.5 H, RDW Coeff of Klarissa 15.3 H, Plt Count 56 L, MPV 11.1, Differential Comment SCANNED 12/04/19 06:24: Sodium 134 L, Potassium 3.7, Chloride 97 L, Carbon Dioxide 24.0, Anion Gap 13, BUN 14, Creatinine 0.92, Estim Creat Clear Calc 75.13, Est GFR (MDRD) Af Amer 106, Est GFR (MDRD) Non-Af 88, BUN/Creatinine Ratio 15.2, Glucose 86, Calcium 8.7, Total Bilirubin 1.00, AST 380 H, ALT 178 H, Alkaline Phosphatase 85, Total Protein 7.4, Albumin 3.2, Globulin 4.2, Albumin/Globulin Ratio 0.8 L Current Medications Albuterol Sulfate (Ventolin Aerosols) 2.5 mg INHALATION Q6HWA.RT [facility] Last Admin: 12/05/19 07:10 Dose: 2.5 mg Documented by: Budesonide (Pulmicort Aerosol) 0.5 mg INHALATION Q12H.RT [facility] Last Admin: 12/05/19 07:11 Dose: 0.5 mg Documented by: Dicyclomine HCl (Bentyl) 20 mg PO Q6H PRN PRN PRN Reason: abdominal discomfort Folic Acid (Folic Acid) 1 mg PO DAILY@0800 [facility] Last Admin: 12/04/19 09:44 Dose: 1 mg Documented by: Gabapentin (Neurontin) 300 mg PO Q8H PRN PRN PRN Reason: moderate to severe anxiety Last Admin: 12/04/19 06:44 Dose: 300 mg Documented by: Hydroxyzine Pamoate (Vistaril Pamoate Capsule) 50 mg PO Q4H PRN PRN PRN Reason: mild anxiety Last Admin: 12/04/19 06:44 Dose: 50 mg Documented by: Loperamide HCl (Imodium) 2 mg PO Q4H PRN PRN PRN Reason: LOOSE STOOLS Multivitamins/Minerals (Multivitamin With Minerals (Bkc)) [facility] Last Admin: 12/04/19 09:44 Dose: 1 tablet Documented by: Nicotine (Nicoderm Cq (Pbkc)) 14 mg TRANSDERM. DAILY [facility] Last Admin: 12/04/19 09:49 Dose: 14 mg Documented by: Nutritional Formula (Lactose Free) (Ensure Enlive) 120 ml PO 4X/DAY [facility] Last Admin: 12/04/19 22:09 Dose: 120 ml Documented by: Ondansetron HCl (Zofran Odt) 8 mg PO Q8H PRN PRN PRN Reason: NAUSEA Last Admin: 12/04/19 06:32 Dose: 8 mg Documented by: Phenobarbital (Phenobarbital) 64.8 mg PO Q4H [facility]; Taper Stop: 12/07/19 22:29 Last Admin: 12/05/19 06:10 Dose: 64.8 mg Documented by: Sodium Chloride () 10 - 40 ml IV UD PRN PRN Reason: SALINE FLUSH Thiamine HCl (Vitamin B1) [facility] Last Admin: 12/04/19 09:44 Dose: 100 mg Documented by: Trazodone HCl (Desyrel) 100 mg PO QHS PRN PRN Reason: INSOMNIA STROKE Vital Signs/Narrative: Vital Signs Temp Pulse Resp BP Pulse Ox 12/05/19 04:00 97.9 F 105 H 16 127/89 H 95 Medical Necessity - Tobacco Use Smoking Status: Former smoker - cigarettes Tobacco Use: Chew - 1-2 cans per week Assessment/Plan All Active Problems Alcohol abuse with intoxication (Acute) Patient is a 65-year-old gentleman with history of chronic alcohol dependence presented with acute alcohol withdrawal admitted to regular nursing floor where patient is currently undergoing medical stabilization 1. Acute alcohol withdrawal ?Admitted to the regular nursing floor where patient is currently being managed with phenobarb for medical stabilization. Plan is for patient to follow-up with 180 following his discharge -12/05/2019; continues to improve clinically do anticipate discharge on 12/06/2019 if he remains on his current trajectory 2. Pancytopenia ?Attributed to patient chronic alcohol abuse monitoring counts 3. Acute alcoholic hepatitis Appears to still have some chronicity we will continue to monitor 4. COPD ?Currently not in exacerbation we will continue with home inhalers 5. Tobacco dependence (chews tobacco) - Counseled on cessation, offered nicotine patch for tobacco cravings 6. DVT prophylaxis ?Did encourage early ambulation plus SCDs Inpatient E&M: 61759 Subs Hosp L2
[2019-12-05] MEDS: Multivitamins,Ther W-Minerals Tablet 1 TABLET PO (08:33)
[2019-12-05] MEDS: Thiamine Hydrochloride 100 MG Tablet PO (08:33)
[2019-12-05] MEDS: Folic Acid 1 MG Tablet PO (08:33)
--- NOTE | 2019-12-05 13:33 | ADDICTION ---
This information writer met with patient in his room to conduct ASAM assessment and discharge planning. Assessment and discharge plan completed and will be faxed to utilization management. Patient to discharge over the holiday weekend and plans to admit into [facility] on 12/09/2019 at 9am. Patient amiable and was provided information related to residential treatment in preparation for admit. Patient appears appropriate fo r the 4.0 LOC at this time based on history of use, recent use and report of potentially dangerous withdrawal sx in the past as well as tremors. ASA LOC 4.0 Dimension 1: Acute Intoxication and/or Withdrawal Potential Last use 12/04/2019, pint of whiskey per day. Dimension 2: Biomedical Conditions and Complications COPD dx Dimension 3: Emotional, Behavioral or Cognitive Conditions and Complications Some depression sx, patient denies need for tx at this time. Appears emotionally regulated, reports no SI or HI. Was alert/oriented x4. Dimension 4: Readiness to Change Preparation stage of change, limited understanding of problem behaviors, Dimension 5: Relapse, Continued Use or Continued Problem Potential High relapse potential based on early onset of use, ongoing and problematic use history, limited sober supports, active alcohol use in home, no report of existing coping skills. Dimension 6: Recovery/ Living Environment Active alcohol use in home by brother in law, no AA engagement, limited sober support.
--- NOTE | 2019-12-05 16:02 | NURSING ---
Patient ambulating in halls.
--- NOTE | 2019-12-05 17:07 | CHAPLAIN ---
Type of Pastoral Visit ___ Initial Visit ___ Follow-up Visit ___ On-call Visit ___ General Patient Visit ___ Spiritual Assessment ___ Family Conference ___ Bereavement ___ Rapid Response ___ Code Blue ___ Other (describe below) Pastoral Care Referral From ___ Patient ___ Family ___ Nurse ___ Physician ___ Leasing Consultant ___ Supervisor Intermediates ___ Other (describe below) Sacrament/Intervention ___ Active listening ___ Anointing ___ Anglican ___ Bereavement ___ Communion ___ [place]ta exploration ___ ___ Life review ___ Prayer ___ Reconciliation ___ Sacrament of Sick ___ Supportive presence ___ Wedding ___ Other (describe below) Pastoral Comments patient asleep and did not awaken at entering of room by this warehouse assembly worker; left a calling card
[2019-12-06] MEDS: traZODone 100 MG Tablet PO (00:19)
[2019-12-06 03:52] VITALS: BP 119/88; PULSE 85; RESP 18; TEMP 37.3; O2SAT 93
[2019-12-06 03:53] VITALS: BP 119/88; PULSE 85; RESP 18; TEMP 37.3; O2SAT 93
[2019-12-06] MEDS: Phenobarbital 32.4 MG Tablet 64.8 MG PO ×2 (03:55→09:46)
[2019-12-06] MEDS: Budesonide Respules 0.5 MG/2 ML AMPUL.NEB. INHALATION (07:23)
[2019-12-06 07:24] VITALS: PULSE 90; RESP 18; O2SAT 97
[2019-12-06] MEDS: Albuterol 2.5 MG/3 ML VIAL.NEB. INHALATION (07:24)
--- NOTE | 2019-12-06 07:41 | DCINST_ITS ---
- Discharge Diagnoses Current Active Problems: Current Active and Chronic Problems Alcohol withdrawal (Chronic) You will use the following diet at home:: No restrictions Discharge Activity: Return to Normal Activity, May not drive while taking narcotic pain medications. Allergies/Adverse Reactions: Allergies oxycodone [From Percocet] Allergy (Verified 12/03/19 11:25) Hives lorazepam [From Ativan] Adverse Reaction (Verified 12/03/19 11:25) HALLUCINATIONS Medications to take at Discharge Fluticasone/Vilanterol [Breo Ellipta 100-25 Mcg INH] 1 puff INHALATION DAILY 11/07/19 Primary Care Physician: Care Physician,No Primary [Primary Care Provider] - Test Results: Test results from this visit will be discussed in further detail at your follow- up appointment, if applicable. Please Follow Up With: 180 When: as scheduled Proposed Discharge Date: 12/06/19
--- NOTE | 2019-12-06 08:53 | PCM.DC.SUM ---
Discharge Date and Diagnosis Date of Admission: 12/03/19 Date of Discharge: 12/06/19 - Primary Discharge Diagnosis Acute Problems: Acute alcohol withdrawal - Secondary Discharge Diagnosis Chronic Problems: Chronic Problems Alcohol withdrawal (Chronic) COPD (chronic obstructive pulmonary disease) (Chronic) Former tobacco use (Chronic) Thrombocytopenia (Chronic) Chronic alcoholic hepatitis (Chronic) Hospital Course and Treatment Summary of Care Provided: Patient is a 65-year-old gentleman with history of chronic alcohol dependence presented with acute alcohol withdrawal admitted to regular nursing floor where patient is currently undergoing medical stabilization 1. Acute alcohol withdrawal ?Admitted to the regular nursing floor where patient is currently being managed with phenobarb for medical stabilization. Plan is for patient to follow-up with 180 following his discharge -12/05/2019; continues to improve clinically do anticipate discharge on 12/06/2019 if he remains on his current trajectory ?12/06/2019. Patient was deemed stable to be discharged home. 2. Pancytopenia ?Attributed to patient chronic alcohol abuse monitoring counts 3. Acute alcoholic hepatitis Appears to still have some chronicity we will continue to monitor 4. COPD ?Currently not in exacerbation we will continue with home inhalers 5. Tobacco dependence (chews tobacco) - Counseled on cessation, offered nicotine patch for tobacco cravings 6. DVT prophylaxis ?Did encourage early ambulation plus SCDs Objective: GENERAL: cooperative HEENT: Atraumatic; EYES; Anicteric, Normal Conjunctiva NECK; supple, normal thyroid, RESPIRATORY: Diminished to auscultation CARDIOVASCULAR: Regular S1 S2, GI: soft, normoactive bowel sounds, : No Renal angle tenderness; EXTREMITIES: No edema, no clubbing, MUSCULOSKELETAL: no muscle waisting NEURO: Awake; no lateralizing signs. SKIN: No Rash PSYCH; Flat affect - Physical Exam Vitals/I&O's: Vital Signs Temp Pulse Resp BP Pulse Ox 99.2 F H 90 18 119/88 H 97 12/06/19 03:53 12/06/19 07:24 12/06/19 07:24 12/06/19 03:53 12/06/19 07:24 Oxygen Delivery Method Room Air Weight: 82.871 kg Body Mass Index (BMI) 29.0 Intake and Output for Last 24 Hours 12/04/19 12/05/19 12/06/19 23:59 23:59 23:59 Intake Total 1300 / 1900 1350 / 1650 600 / 600 Balance 1300 / 1900 1350 / 1650 600 / 600 Current Medications Albuterol Sulfate (Ventolin Aerosols) 2.5 mg INHALATION Q6HWA.RT [facility] Last Admin: 12/06/19 07:24 Dose: 2.5 mg Documented by: Budesonide (Pulmicort Aerosol) 0.5 mg INHALATION Q12H.RT [facility] Last Admin: 12/06/19 07:23 Dose: 0.5 mg Documented by: Dicyclomine HCl (Bentyl) 20 mg PO Q6H PRN PRN PRN Reason: abdominal discomfort Folic Acid (Folic Acid) 1 mg PO DAILY@0800 [facility] Last Admin: 12/05/19 08:33 Dose: 1 mg Documented by: Gabapentin (Neurontin) 300 mg PO Q8H PRN PRN PRN Reason: moderate to severe anxiety Last Admin: 12/04/19 06:44 Dose: 300 mg Documented by: Hydroxyzine Pamoate (Vistaril Pamoate Capsule) 50 mg PO Q4H PRN PRN PRN Reason: mild anxiety Last Admin: 12/04/19 06:44 Dose: 50 mg Documented by: Loperamide HCl (Imodium) 2 mg PO Q4H PRN PRN PRN Reason: LOOSE STOOLS Multivitamins/Minerals (Multivitamin With Minerals (Bkc)) [facility] Last Admin: 12/05/19 08:33 Dose: 1 tablet Documented by: Nicotine (Nicoderm Cq (Pbkc)) 14 mg TRANSDERM. DAILY [facility] Last Admin: 12/05/19 08:33 Dose: 14 mg Documented by: Nutritional Formula (Lactose Free) (Ensure Enlive) 120 ml PO 4X/DAY [facility] Last Admin: 12/05/19 22:29 Dose: 120 ml Documented by: Ondansetron HCl (Zofran Odt) 8 mg PO Q8H PRN PRN PRN Reason: NAUSEA Last Admin: 12/04/19 06:32 Dose: 8 mg Documented by: Phenobarbital (Phenobarbital) 64.8 mg PO Q6H [facility]; Taper Stop: 12/07/19 22:29 Last Admin: 12/06/19 03:55 Dose: 64.8 mg Documented by: Sodium Chloride () 10 - 40 ml IV UD PRN PRN Reason: SALINE FLUSH Thiamine HCl (Vitamin B1) [facility] Last Admin: 12/05/19 08:33 Dose: 100 mg Documented by: Trazodone HCl (Desyrel) 100 mg PO QHS PRN PRN Reason: INSOMNIA Last Admin: 12/06/19 00:19 Dose: 100 mg Documented by: Discharge Diet: No Restrictions Discharge Activity: Return to Normal Activity, May not drive while taking narcotic pain medications. Home Medications: Medications to take at Discharge Fluticasone/Vilanterol [Breo Ellipta 100-25 Mcg INH] 1 puff INHALATION DAILY 11/07/19 Primary Care Physician: Care Physician,No Primary [Primary Care Provider] - Please Follow Up With: 180 When: as scheduled Disposition: Home Minutes spent on discharge:: 35 Patient Condition:: Stable Medical Necessity - Tobacco Use Smoking Status: Former smoker - cigarettes Tobacco Use: Chew - 1-2 cans per week Meaningful Use Info Meaningful Use Diagnoses (Choose all that apply): None applicable Inpatient E&M: 16639 Disch Hosp
[2019-12-06] MEDS: Thiamine Hydrochloride 100 MG Tablet PO (09:16)
[2019-12-06] MEDS: Multivitamins,Ther W-Minerals Tablet 1 TABLET PO (09:16)
[2019-12-06] MEDS: Folic Acid 1 MG Tablet PO (09:16)
[2019-12-06 09:23] VITALS: BP 114/89; PULSE 84; RESP 18; TEMP 36.6; O2SAT 96
== END 2019-12-06 09:51 | disposition home or self-care (01) | DRG 897 ==
LOC: ED 13:22 → MS3 14:13
PROVIDERS: Admitting Provider Internal Medicine; Emergency Provider Emergency Medicine; Visit Provider Internal Medicine
DX: F10.239 Alcohol dependence with withdrawal, unspecified (principal); D61.818 Other pancytopenia; E87.1 Hypo-osmolality and hyponatremia; K70.10 Alcoholic hepatitis without ascites; Y90.8 Blood alcohol level of 240 mg/100 ml or more; J44.9 Chronic obstructive pulmonary disease, unspecified; F17.220 Nicotine dependence, chewing tobacco, uncomplicated
CPT/HCPCS: 36415; 80053; 80307; 80320; 81001; 85025; 85027; 94640; 99282; A4216; G0480

== ENCOUNTER 2020-02-08 13:46 | Inpatient (IN) | payer OTHER, SELFPAY ==
[2020-02-08 13:47] VITALS: BP 119/78; PULSE 100; RESP 20; TEMP 36.2; O2SAT 91; BMI 29.0
--- NOTE | 2020-02-08 14:11 | ED.DCSUM_ITS ---
History of Present Illness Detail of Chief Complaint: alcohol abuse Informant: Patient, Family Onset: Month(s) Narrative: 64-year-old male with PMH COPD, alcohol abuse, delirium tremens presents requesting to detox from alcohol. He states he has been in rehab for alcohol over 10 times and was doing well until April 2019 when he gradually started drinking again. He has been under stress since his divorce. Over the last 30 days he has been drinking 1 pint of vodka per day. His last drink was at 10 AM this morning. He is asymptomatic now. His sister brought him in stating that she got him to agree to detox. He states he fell yesterday when sitting down on the toilet and landed on his butt and left side. He now has some pain on his left side of his ribs. Denies head injury or LOC. No aspirin or blood thinner. Denies fevers, chills, nausea, vomiting, headache, chest pain, shortness of breath, tremors, or seizures. <Roseanne Flowers - Last Filed: 02/08/20 17:20> <Benita Perdue - Last Filed: 02/11/20 23:40> Chief Complaint: Substance Abuse Past Medical History Surgical History: - - Left total hip replacement, low back surgery, left shoulder arthroscopic surgery. Smoking Status: Former smoker - cigarettes - Family History Maternal Family History: Reports: - - Patient notes a maternal family history of pulmonary disease. Paternal Family History: Reports: - - Patient notes paternal family history of cancer, throat. <Roseanne Flowers - Last Filed: 02/08/20 17:20> <Benita Perdeu - Last Filed: 02/11/20 23:40> - Allergies and Home Meds Allergies/Adverse Reactions: Allergies oxycodone [From Percocet] Allergy (Verified 02/08/20 13:50) Hives lorazepam [From Ativan] Adverse Reaction (Verified 02/08/20 13:50) HALLUCINATIONS Review of Systems General: Denies: Chills, Fever, Sweats Eyes: Denies: Visual changes - bilaterally, Diplopia ENT: Denies: Rhinorrhea, Sore throat Cardiovascular: Denies: Chest pain, Palpitations Respiratory: Denies: Dyspnea, Cough, Dyspnea on exertion Gastrointestinal: Reports: Nausea. Denies: Abdominal pain, Vomiting, Diarrhea, Melena, Hematochezia Genitourinary: Denies: Dysuria, Hematuria, Frequency Musculoskeletal: Reports: - - rib pain. Denies: Back pain, Extremity Pain Skin: Denies: Rash, Wounds Neurological: Denies: Headache, Weakness, Numbness <Roseanne Flowers - Last Filed: 02/08/20 17:20> Physical Exam Vital Signs/Narrative: Vital Signs Temp Pulse Resp BP Pulse Ox 02/08/20 13:47 97.1 F L 100 20 H 119/78 91 Inital Vital Signs reviewed: Yes General: Well nourished, Well developed, Unkempt, No Acute Distress Head: Normocephalic, Atraumatic Eyes: Perrl, EOMI ENT: Moist mucous membranes, No rhinorrhea Neck: Supple, Nontender Cardiovascular: Regular rate, Regular rhythm, No murmurs Respiratory: No distress, CTA bilaterally, Chest nontender Abdomen: Soft, Nontender, Nondistended, Normal bowel sounds Back: Nontender, Normal Inspection Extremities: Nontender, No edema Skin: Normal color, No rash Neurological: Alert, Oriented x3, Cranial nerves II-XII grossly intact, Normal Strength, Normal Sensation Psychological: Depressed <Roseanne Flowers - Last Filed: 02/08/20 17:20> Diagnostic/Tx/Re-eval - Rhythm Strip Rhythm Strip: Sinus Rhythm Rate: 90 Ectopy: None - Medical Decision Making Patient with history of alcohol abuse presented for alcohol detox. He appears well nontoxic. Vital signs are within normal limits. ED addiction medicine protocol was initiated. Labs show baseline pancytopenia and transaminitis. Alcohol level 0.333. EKG showed normal sinus rhythm with no signs of ischemia. Patient was given phenobarbital and Zofran to manage withdrawal. Admits to depression but denies SI/HI and his goal is to detox from alcohol to go to an inpatient therapy facility. Case was discussed with hospitalist and he was transferred to the floor in stable condition. <Roseanne Flowers - Last Filed: 02/08/20 17:20> - Medical Decision Making Patient evaluated independently and in conjunction with physician hair or beauty salon assistant. Agree with note above unless documented otherwise. Patient is evaluated for request of alcohol detox. He peers nontoxic no acute distress. Patient has been drinking heavily for the past 30 days. He does appear depressed and is tearful but denies any current suicidal ideations and states he would not go through with anything. I do not think he needs psychiatric evaluation at this time. Patient is chronically pancytopenic and has a chronic transaminitis which is unchanged. He is given phenobarbital in the ER for withdrawal symptoms. Patient is accepted to detox. <Benita Perdue - Last Filed: 02/11/20 23:40> ED Disposition <Roseanne Flowers - Last Filed: 02/08/20 17:20> <Benita Perdue - Last Filed: 02/11/20 23:40> - Plan for ED Patient: Disposition: [facility] Diagnosis: Alcohol abuse, Chronic alcoholic hepatitis, Thrombocytopenia
--- NOTE | 2020-02-08 14:16 | EKG12_ITS ---
Test Reason : Blood Pressure : / mmHG Vent. Rate : 090 BPM Atrial Rate : 090 BPM P-R Int : 206 ms QRS Dur : 112 ms QT Int : 368 ms P-R-T Axes : 037 -53 049 degrees QTc Int : 450 ms Normal sinus rhythm Low voltage QRS Left anterior fascicular block Poor R- wave Progression Abnormal ECG Confirmed by LORRI MAN, ALISON ([id number]), social media editor JULIETTE NAGY ([id number]) on 02/12/2020 9:57:22 AM Referred By: NICOLASA Confirmed By:ALISON BLACKMON MD
--- NOTE | 2020-02-08 14:31 | CT_ITS ---
STUDY: CT BRAIN WITHOUT CONTRAST REASON FOR EXAM: Male, 64 years old. FALL X1 DAY AGO--HITTING LEFT SIDE RADIATION DOSAGE (If Supplied By Facility): CTDIvol = ( 44.99 ) mGy, DLP = ( 8121.98 ) mGycm TECHNIQUE: Transaxial CT imaging of the brain was performed without administration of intravenous contrast material. Individualized dose optimization techniques were used for this CT. COMPARISON: No relevant priors. FINDINGS: Normal soft tissue structures. Normal calvarium. There is mild cerebral atrophy with widening of the extra-axial spaces and ventricular dilatation. There are areas of decreased attenuation within the white matter tracts of the supratentorial brain, consistent with microvascular disease changes. Normal basal ganglia and thalami. Normal brainstem. Normal cerebellum. There is no intracranial hemorrhage. There are no findings of an acute ischemic infarction. Normal visualized paranasal sinuses. CT/Brain/Head without Contrast IMPRESSION: No acute intracranial process. Electronically Signed: Sam Spence MD at 15:31 EDT Tel , Service support ,
--- NOTE | 2020-02-08 14:31 | CT_ITS ---
STUDY: CT CERVICAL SPINE WITHOUT CONTRAST REASON FOR EXAM: Male, 64 years old. FALL X1 DAY AGO--HITTING LEFT SIDE RADIATION DOSAGE (If Supplied By Facility): CTDIvol = ( 20.64 ) mGy, DLP = ( 369.79 ) mGycm TECHNIQUE: High resolution transaxial imaging was performed without contrast material. Sagittal and coronal images were reconstructed. Individualized dose optimization techniques were used for this CT. COMPARISON: None FINDINGS: Normal craniovertebral junction. Normal anterior atlantoaxial articulation. Normal odontoid process. There is straightening of the normal cervical lordosis. Normal vertebral bodies and posterior osseous elements. C2-3: Mild degenerative changes in the right apophyseal joint. Normal bony central spinal canal and bilateral neural foramina. C3-4: Mild degenerative changes in the right apophyseal joint. Normal bony central spinal canal and bilateral neural foramina. C4-5: Narrowing the disc space. Minimal dextroscoliosis C4-C5. Degenerative changes in the apophyseal joints worse on the left side borderline central spinal canal and neural foramina. C5-6: Narrowing of the disc space. Mild retrolisthesis of C5 over C6. Narrowing of the right neural foramina and to lesser extent in the left side. Mild narrowing of the central spinal canal. C6-7: Narrowing of the disc space. Posterior lateral degenerative spurs with narrowing of bilateral neural foramina. Borderline central spinal canal. C7-T1: Normal endplates. Normal disc height and morphology. Normal central canal and intervertebral neuroforamina. There is no prevertebral soft tissue swelling. CT/Spine Cervical without Contras IMPRESSION: Multilevel degenerative changes, as described above. No demonstrated acute fracture. If symptoms persist, MRI of the cervical spine is recommended. Electronically Signed: Sam Spence MD at 15:29 EDT Tel , Service support ,
[2020-02-08 14:48] VITALS: BP 119/78; PULSE 100; RESP 16; TEMP 36.2; O2SAT 91
[2020-02-08 15:11] LABS: Absolute Lymphocyte Count 0.85 X10^3/uL (0.83-4.51); Absolute Neutrophil Count 2.1 X10^3/uL (2.0-7.7); Basophil# 0.05 X10^3/uL; Basophil% 1.4 % (0-1); Eosinophil# 0.07 X10^3/uL; Eosinophils% 1.9 % (0-5); Hematocrit 36.8 % (40-54); Hemoglobin 12.8 g/dL (13.0-16.5); Lymphocyte # 0.85 X10^3/ul (4.0); Lymphocyte % 23.5 % (19-41); Mean Corp Hgb Conc 34.8 g/dL (32-36); Mean Corpuscular Hgb 32.1 pg (27.0-32.0); Mean Corpuscular Volume 92.2 fL (80-94); Mean Platelet Vol. 10.3 fl (6.2-12.0); Monocyte# 0.58 X10^3/uL; Monocyte% 16.1 % (0-10); NRBC Flagged by Analyzer 0 % (0-5); Neutrophil # 2.05 X10^3/uL (2.7-7.7); Neutrophil % 56.8 % (47-70); POSITIVE COUNT YES; Platelet Count 57 K/mm3 (150-450); RBC Distribution Width SD 46.6 fl (35.1-43.9); Red Blood Count 3.99 M/mm3 (4.6-6.2); White Blood Count 3.6 K/mm3 (4.4-11.0)
[2020-02-08 15:16] LABS: International Normalized Ratio 1.1; Prothrombin Time (Protime)PT. 13.4 SECONDS (11.7-14.9)
--- NOTE | 2020-02-08 15:20 | RAD_ITS ---
STUDY: X-RAY - UNILATERAL RIBS ( LEFT ) WITH CHEST REASON FOR EXAM: Male, 64 years old. Left rib pain due to fall. TECHNIQUE - RIBS: 4 view(s) of the ribs. TECHNIQUE - CHEST: Frontal view COMPARISON: None. FINDINGS - RIBS: Normal visualized ribs without a demonstrated fracture. FINDINGS - CHEST: The lungs are clear and expanded. There is no demonstrated pleural abnormality. Normal size heart. Normal mediastinum and gregory. Normal visualized pulmonary arteries. Normal visualized aortic arch and descending thoracic aorta. Normal visualized thoracic spine. Normal visualized ribs, clavicles, and shoulders. There is no demonstrated abnormality of the visualized soft tissue structures of the upper abdomen. RAD/Ribs Uni Min 3V w/PA Chest IMPRESSION: RIBS: Normal x-ray examination of the ribs. CHEST: Normal x-ray examination of the chest. Electronically Signed: Ulices Harrison DO at 16:25 EDT Tel [phone], Service support ,
[2020-02-08 15:26] LABS: ALB/GLOB Ratio 0.9 RATIO (0.9-2.4); AST(SGOT) 459 U/L (15-37); Alanine Aminotransfer ALT/SGPT 219 U/L (16-61); Albumin, Serum 3.5 g/dL (3.2-5.0); Alkaline Phosphatase 73 U/L (45-117); Anion Gap 17 (5-15); BUN 22 mg/dL (7-18); Calcium,Total 8.5 mg/dL (8.5-10.1); Chloride 97 mmol/L (98-107); Creatinine, Serum 0.88 mg/dL (0.70-1.30); EST Glomerular Filtration Rate 93 mL/min (>60); Est Glom Filt Rate - Afr Amer 112 mL/min (>60); Estimated Creatinine Clearance 78.54 ml/min; Glucose 110 mg/dL (74-106); Potassium 3.8 mmol/L (3.5-5.1); Protein, Total 7.5 g/dL (6.4-8.2); Sodium Level 135 mmol/L (136-145)
--- NOTE | 2020-02-08 15:51 | NURSING ---
MED SURG ACUTE ALCOHOL INTOXICATION, WITHDRAWAL CYRUS
--- NOTE | 2020-02-08 15:59 | HP.PCM_ITS ---
Problem List (1) Acute alcohol withdrawal Status: Acute (2) Alcohol abuse Status: Chronic (3) COPD (chronic obstructive pulmonary disease) Status: Chronic Qualifiers: COPD type: unspecified COPD Qualified Code(s): J44.9 - Chronic obstructive pulmonary disease, unspecified (4) Thrombocytopenia Status: Chronic (5) Chronic alcoholic hepatitis Status: Chronic History of Present Illness Date of Admission: 02/08/20 Chief Complaint: Requesting admission for acute alcohol withdrawal. The patient is a 64 year old M with past medical history as mentioned above was brought to the emergency department by his sister requesting admission for acute alcohol withdrawal for medical stabilization. This patient had a history of alcohol abuse with recurrent admissions for medical stabilization but unfortunately, he relapses. His last admission for medical stabilization was on December, and he was discharged to inpatient treatment program and he stayed there for 30 days and he was discharged. After he was discharged, he started dr inking again. He has been drinking every day 1 pint of vodka and his last drink was this morning around 10 AM. Patient's sister mentioned that the patient has been severely depressed because he was April last year and has winded anniversary will be in couple of days and his birthday will be also in couple of weeks. Patient admits that he severely depressed but he denied any suicidal ideation or intentions. Patient sister mentioned that he lives with her and he has been just sitting in the dark, drinking and saying that he wants to . He complained of some anxiety and tremors as well as nausea without vomiting. He has history of COPD and he has been on albuterol PRN. He is a former smoker, quit smoking years ago. He has history of chronic thrombocytopenia secondary to chronic liver disease. He had a history of chronic alcoholic hepatitis and his LFT is currently elevated. In the emergency department, his vital signs were stable. His routine blood work was remarkable for chronic pancytopenia, mild hyponatremia and elevated LFTs mainly liver transaminases. Blood alcohol level is 333. He is being admitted for acute alcohol intoxication/withdrawal for medical stabilization as well as severe depression. Past Medical History Past Medical History (Chronic Problems): Chronic Problems Alcohol abuse (Chronic) COPD (chronic obstructive pulmonary disease) (Chronic) Former tobacco use (Chronic) Thrombocytopenia (Chronic) Chronic alcoholic hepatitis (Chronic) Allergies oxycodone [From Percocet] Allergy (Verified 02/08/20 13:50) Hives lorazepam [From Ativan] Adverse Reaction (Verified 02/08/20 13:50) HALLUCINATIONS Home Medications: Ambulatory Orders Medication Instructions Recorded Fluticasone/Vilanterol [Breo 1 puff INHALATION DAILY 11/07/19 Ellipta 100-25 Mcg INH] Surgical History: - - Left total hip replacement, low back surgery, left shoulder arthroscopic surgery. Psychiatric History: No pertinent psych hx Lives: With Family Smoking Status: Former smoker Alcohol: Heavy Drugs: None - *Family History Maternal History Items: - - Patient notes a maternal family history of pulmonary disease. Paternal History Items: - - Patient notes paternal family history of cancer, throat. Review of Systems Constitutional: Reports: Anorexia. Denies: Chills, Fever, Weakness Eyes: Denies: Blurred vision, Double vision, Drainage, Redness HEENT: Denies: Difficulty Hearing, Ear Pain, Eye Pain, Nasal Congestion, Sore Throat Cardiovascular: Denies: Chest Pain, Chest Pressure, Chest Tightness, Edema, Heaviness, Palpitations, Syncope Respiratory: Denies: Cough, Hemoptysis, Pleuritic Pain, Shortness of Breath, Sputum production, Wheezing Gastrointestinal: Reports: Nausea. Denies: Abdominal Pain, Constipation, Diarrhea, Vomiting Genitourinary: Denies: Dysuria, Frequency, Hematuria Musculoskeletal: Denies: Arm Pain, Back Pain, Foot Pain Skin: Denies: Dryness, Rash Neurological: Reports: Tremor. Denies: Balance problems, Double vision, Change in Speech, Slurred speech, Confusion, Headaches, Incoordination, Numbness Psychiatric: Reports: Depression. Denies: Anxiety, Homicidal Ideations, Suicidal Ideations Endocrine: Denies: Change in Body Habitus, Heat/ Cold Intolerance, Polydipsia, Polyuria VTE Information - Inpt Only VTE Present on Admission: No VTE Mechan Device Prophylaxis: None VTE Pharm Prophylaxis ordered?: No Patient Problems: Active and Suspected Problems Acute alcohol withdrawal (Acute) - Physical Exam Vitals/I&O's: Vital Signs Temp Pulse Resp BP Pulse Ox 97.1 F L 100 16 119/78 91 02/08/20 14:48 02/08/20 14:48 02/08/20 14:48 02/08/20 14:48 02/08/20 14:48 Oxygen Delivery Method Room Air Weight: 180 lb Body Mass Index (BMI) 29.0 General: Alert, Oriented x3, Cooperative, No apparent distress HEENT: Atraumatic, PERRLA, Normocephalic Oral: Moist Mucosa, No Gingival or Mucosal Lesions/ Ulcerations Neck: Supple, No JVD, Negative Carotid Bruits, Trachea Midline, Thyroid Normal Size and Texture Lungs: Clear to auscultation, Normal air movement, No rhonchi, No wheeze, No rales Cardiovascular: Regular rate, Regular Rhythm, Normal S1, Normal S2, PMI Normal Abdomen: Bowel Sounds Present, Soft, Non Tender, Non-Distended, No Hepato- splenomegaly Extremities: No clubbing, No cyanosis, No edema Skin: No rashes, No breakdown Lymphatic: No Cervical, Supraclavicular, or Inguinal Adenopathy Neurological: Cranial nerves II-XII grossly intact, Motor Exam 5/5 strength throughout Psych/Mental Status: Appropriate, Depressed, - - Tearful., Alert and oriented to time, place, person, mood and affect Laboratory Results 02/08/20 14:56: WBC 3.6 L, RBC 3.99 L, Hgb 12.8 L, Hct 36.8 L, MCV 92.2, MCH 32.1 H, MCHC 34.8, RDW Std Deviation 46.6 H, RDW Coeff of Klarissa 14.0, Plt Count 57 L, MPV 10.3, Immature Gran % (Auto) 0.300, Neut % (Auto) 56.8, Lymph % (Auto) 23.5, [place] % (Auto) 16.1 H, Eos % (Auto) 1.9, Baso % (Auto) 1.4 H, Absolute Neuts (auto) 2.1, Absolute Lymphs (auto) 0.85, Nucleated RBC % 0 02/08/20 14:56: PT 13.4, INR 1.1 02/08/20 14:56: Sodium 135 L, Potassium 3.8, Chloride 97 L, Carbon Dioxide 21.0, Anion Gap 17 H, BUN 22 H, Creatinine 0.88, Estim Creat Clear Calc 78.54, Est GFR (MDRD) Af Amer 112, Est GFR (MDRD) Non-Af 93, BUN/Creatinine Ratio 25.0 H, Glucose 110 H, Calcium 8.5, Total Bilirubin 1.20 H, AST 459 H, ALT 219 H, Alkaline Phosphatase 73, Total Protein 7.5, Albumin 3.5, Globulin 4.0, Albumin/Globulin Ratio 0.9 02/08/20 14:56: Ethyl Alcohol 333.0 H* Assessment/Plan All Active Problems Acute alcohol withdrawal (Acute) This is a 64 years old male patient presented to the emergency room requesting admission for acute alcohol withdrawal, found to have blood alcohol level of 333 and also complained of severe depression. #1 acute alcohol intoxication/withdrawal: With recurrent admissions for medical stabilization, last admission was on December,, was discharged to inpatient treatment but he relapsed. He has been drinking every day, large amount of v odka, last drink was this morning. Vital signs are stable. Blood alcohol level is 333. Urine drug screen is pending. Plan: Admit to [facility] floor, initiate alcohol withdrawal protocol, tapering phenobarbital, thiamine, folic acid, PRN Bentyl, Neurontin, Vistaril, ibuprofen, Imodium, Mylanta, Zofran and trazodone, consult 180 program. #2 severe depression: According to the sister, patient has been sitting at home, lives with her, sitting in the dark and just drinks vodka and stating that he wants to . He denied any suicidal ideations at this point. Plan: Start fluoxetine every morning, consult mental health crisis. #3 COPD: Clinically stable, pulse ox is maintained on room air. Plan for DuoNeb every 6 hours, albuterol PRN. #4 chronic pancytopenia/chronic thrombocytopenia: WBC, hemoglobin and platelet count are at baseline. No active bleeding. Pro time and INR were normal. Plan to monitor. #5 chronic alcoholic hepatitis: Total bilirubin as well as liver transaminases are elevated chronically, close to baseline. Alk phos is normal. #6 DVT prophylaxis: SCDs, no chemical prophylaxis because of thrombocytopenia. This note was generated with [employer] dictation software. It may contain incorrect words, spelling, and punctuation that were not noted in checking the note before signing. Inpatient E&M: [id number] Init Hosp L2
[2020-02-08] MEDS: Ondansetron ODT 4 MG Tablet PO (16:03)
[2020-02-08] MEDS: Phenobarbital 32.4 MG Tablet 97.2 MG PO (16:03)
[2020-02-08 16:07] VITALS: BP 115/86; PULSE 77; RESP 16; TEMP 36.1; O2SAT 97
[2020-02-08 16:55] VITALS: BMI 26.5; BMI 26.6
--- NOTE | 2020-02-08 16:58 | CM.ED ---
Social Work Consult: Substance Abuse Informant: Dr. Perdue This social worker school met with patient in room. Introduced self and social worker school role. Patient agreeable to speaking with this social worker school. Patient seeking medical management with withdrawal symptoms, [facility] program. Patient states substance of choice is alcohol. Patient states to have been through residential program with Tulio Ferrer in November and to have been sober for several months. Patient states to have needed support in the community. Patient currently lives with sister. Patient nurse updated this social worker school that patient sister wanted to speak with this social worker school. Patient is giving verbal permission for this social worker school to speak with patient sister, Lakisha Milligan. Lakisha is no longer present in the emergency room. Telephone call to Lakisha Milligan. No answer. No voicemail. Telephone call to Kathy Ferrer updated on admission. Plan is for Kathy to come and assess on Monday. PLAN: Admit to [facility] program. Joy GERARD, RUBEN
[2020-02-08 17:08] VITALS: BP 106/69; PULSE 74; RESP 18; TEMP 36.8; O2SAT 98
[2020-02-08 19:30] VITALS: PULSE 90; RESP 14
[2020-02-08] MEDS: Ipratropium/Albuterol Sulfate 3 ML AMPUL.NEB INHALATION (19:30)
[2020-02-08 20:10] VITALS: BP 96/82; PULSE 96; RESP 18; TEMP 36.5; O2SAT 97
[2020-02-08] MEDS: Phenobarbital 32.4 MG Tablet 64.8 MG PO (20:14)
[2020-02-09] VITALS (9 sets, daily range): BP systolic 103–123; BP diastolic 69–82; PULSE 90–101; RESP 12–20; TEMP 36.5–37.1; O2SAT 94–98
[2020-02-09] MEDS: Phenobarbital 32.4 MG Tablet 64.8 MG PO ×7 (00:10→23:50)
[2020-02-09] MEDS: Ipratropium/Albuterol Sulfate 3 ML AMPUL.NEB INHALATION (01:05)
[2020-02-09 04:59] LABS: Mucous, Urine 0 SEEN /hpf (<or=2+); Squamous Epithelial Cells - UA 0 SEEN /hpf (0-5)
[2020-02-09 05:02] LABS: Color, Urine Amber (Yellow); Glucose, Dipstick Normal (Normal); Leukocyte Esterase-Dipstick 25 /ul (Negative); Nitrite-Dipstick Positive (Negative); Occult Blood-Urine 150 /ul (Negative); Protein-Dipstick 500 mg/dl (Negative); Urine Bilirubin Dipstick 3 mg/dL (Negative); Urine Clarity Turbid (Clear); Urine Urobilinogen 8 mg/dl (Normal)
[2020-02-09 05:03] LABS: Ketone-Dipstick 150 mg/dl (Negative)
[2020-02-09 05:15] LABS: Bacteria 1+ /hpf (None Seen); Red Blood Cells-Urine 10-25 SEEN /hpf (0-5); White Blood Cells 5-10 SEEN /hpf (0-5)
[2020-02-09 05:21] LABS: Amphetamine Urine VISTA NEGATIVE (<1000 ng/mL); Barbiturate Urine VISTA POSITIVE (< 200 ng/mL); Benzodiazepine Urine VISTA NEGATIVE (< 200 ng/mL); Cocaine Urine VISTA NEGATIVE (< 300 ng/mL); Ecstacy Urine VISTA NEGATIVE (< 500 ng/mL); Methadone Urine VISTA NEGATIVE (< 300 ng/mL); PCP Urine VISTA NEGATIVE (< 25 ng/mL); THC Urine VISTA NEGATIVE (< 50 ng/mL); Vista UDS pH Range 6
--- NOTE | 2020-02-09 07:53 | PN_ITS ---
Patient Problems: Active and Suspected Problems Acute alcohol withdrawal (Acute) Subjective: Chief complaint: Follow-up after admission for acute alcohol intoxication/withdrawal and severe depression. Patient seen and examined. No acute events overnight. He mentioned that he did not have a good sleep last night. Still having some nausea, anxiety and restlessness. Minimal improvement. He denied suicidal ideations or intentions. His vital signs are stable. - Physical Exam Vitals/I&O's: Vital Signs Temp Pulse Resp BP Pulse Ox 97.7 F L 97 16 103/82 H 98 02/09/20 04:30 02/09/20 04:30 02/09/20 04:30 02/09/20 04:30 02/09/20 04:30 Oxygen Delivery Method Room Air Weight: 164 lb 8 oz Body Mass Index (BMI) 26.5 Intake and Output for Last 24 Hours 02/07/20 02/08/20 02/09/20 23:59 23:59 23:59 Intake Total 700 / 700 Output Total 350 / 350 Balance 350 / 350 General: Alert, Oriented x3, Cooperative, No apparent distress HEENT: Atraumatic, PERRLA, EOMI, Normocephalic Oral: Moist Mucosa, No Gingival or Mucosal Lesions/ Ulcerations Neck: Supple, No JVD, Trachea Midline, Thyroid Normal Size and Texture Lungs: Clear to auscultation, Normal air movement, No rhonchi, No wheeze, No rales Cardiovascular: Regular rate, Regular Rhythm, Normal S1, Normal S2, PMI Normal Abdomen: Bowel Sounds Present, Soft, Non Tender, Non-Distended, No Hepato- splenomegaly Extremities: No clubbing, No cyanosis, No edema Skin: No rashes, No breakdown Lymphatic: No Cervical, Supraclavicular, or Inguinal Adenopathy Neurological: Cranial nerves II-XII grossly intact, Neuro grossly intact Psych/Mental Status: Appropriate, Flat Affect, Depressed, Alert and oriented to time, place, person, mood and affect Laboratory Results 02/08/20 14:56: WBC 3.6 L, RBC 3.99 L, Hgb 12.8 L, Hct 36.8 L, MCV 92.2, MCH 32.1 H, MCHC 34.8, RDW Std Deviation 46.6 H, RDW Coeff of [place] 14.0, Plt Count 57 L, MPV 10.3, Immature Gran % (Auto) 0.300, Neut % (Auto) 56.8, Lymph % (Auto) 23.5, [place] % (Auto) 16.1 H, Eos % (Auto) 1.9, Baso % (Auto) 1.4 H, Absolute Neuts (auto) 2.1, Absolute Lymphs (auto) 0.85, Nucleated RBC % 0 02/08/20 14:56: PT 13.4, INR 1.1 02/08/20 14:56: Sodium 135 L, Potassium 3.8, Chloride 97 L, Carbon Dioxide 21.0, Anion Gap 17 H, BUN 22 H, Creatinine 0.88, Estim Creat Clear Calc 78.54, Est GFR (MDRD) Af Amer 112, Est GFR (MDRD) Non-Af 93, BUN/Creatinine Ratio 25.0 H, Glucose 110 H, Calcium 8.5, Total Bilirubin 1.20 H, AST 459 H, ALT 219 H, Alkaline Phosphatase 73, Total Protein 7.5, Albumin 3.5, Globulin 4.0, Albumin/Globulin Ratio 0.9 02/08/20 14:56: Ethyl Alcohol 333.0 H* 02/09/20 04:40: Urine Opiates Screen NEGATIVE, Urine Methadone Screen NEGATIVE, Ur Barbiturates Screen POSITIVE H, Ur Phencyclidine Scrn NEGATIVE, Ur Amphetamines Screen NEGATIVE, U Methamphetamin-MDMA NEGATIVE, U Benzodiazepines Scrn NEGATIVE, Urine Cocaine Screen NEGATIVE, U Cannabinoids Screen NEGATIVE, Ur Drug Screen Comment 02/09/20 04:40: Urine Color Ebony, Urine Clarity Turbid, Urine pH 6.0, Ur Specific [place] 1.020, Urine Protein 500 H, Urine Glucose (UA) Normal, Urine Ketones 150 H, Urine Occult Blood 150 H, Urine Nitrite Positive H, Urine Bilirubin 3 H, Urine Urobilinogen 8 H, Ur Leukocyte Esterase 25 H, Urine RBC 10- 25 SEEN, Urine WBC 5-10 SEEN, Ur Squamous Epith Cells 0 SEEN, Urine Bacteria 1+, Urine Mucus 0 SEEN Current Medications Al Hydroxide/Mg Hydroxide (Mylanta Ii) 30 ml PO Q6H PRN PRN PRN Reason: dyspesia Albuterol Sulfate (Ventolin Aerosols) 2.5 mg INHALATION Q4H PRN PRN PRN Reason: Shortness of breath, wheezing Albuterol/Ipratropium (Duoneb) 3 ml INHALATION Q6H.RT [facility] Last Admin: 02/09/20 01:05 Dose: 3 ml Documented by: Dicyclomine HCl (Bentyl) 20 mg PO Q6H PRN PRN PRN Reason: abdominal discomfort Fluoxetine HCl (Prozac) 20 mg PO DAILY [facility] Folic Acid (Folic Acid) 1 mg PO DAILY@0800 [facility] Gabapentin (Neurontin) 300 mg PO Q8H PRN PRN PRN Reason: moderate to severe anxiety Hydroxyzine Pamoate (Vistaril Pamoate Capsule) 50 mg PO Q4H PRN PRN PRN Reason: mild anxiety Sodium Chloride () 250 mls @ 15 mls/hr IV .[id number] PRN PRN Reason: Saline Flush Ibuprofen (Motrin) 600 mg PO Q8H PRN PRN PRN Reason: Pain Score 1-10/10 Loperamide HCl (Imodium) 2 mg PO Q4H PRN PRN PRN Reason: LOOSE STOOLS Ondansetron HCl (Zofran Odt) 8 mg PO Q8H PRN PRN PRN Reason: NAUSEA Phenobarbital (Phenobarbital) 97.2 mg PO Q4H [facility]; Taper Stop: 02/13/20 03:59 Last Admin: 02/09/20 04:31 Dose: 97.2 mg Documented by: Sodium Chloride () 10 - 40 ml IV UD PRN PRN Reason: SALINE FLUSH Thiamine HCl (Vitamin B1) 100 mg PO DAILYCM [facility] Trazodone HCl (Desyrel) 100 mg PO QHS PRN PRN Reason: INSOMNIA Medical Necessity - Tobacco Use Smoking Status: Former smoker Assessment/Plan All Active Problems Acute alcohol withdrawal (Acute) This is a 64 years old male patient presented to the emergency room requesting admission for acute alcohol withdrawal, found to have blood alcohol level of 333 and also complained of severe depression. #1 acute alcohol intoxication/withdrawal: He is on tapering phenobarbital, thiamine, folic acid, PRN Bentyl, Neurontin, Vistaril, Motrin, Imodium, Zofran and trazodone. On admission, blood alcohol level was 333. Urine drug screen was positive for barbiturates. Patient significant symptoms of anxiety, restlessness and tremors, minimal improvement. Patient is appropriate for continued inpatient treatment with appropriate high level of care. Plan to continue same treatment. #2 severe depression: Denied suicidal ideations or intentions. Started on fl uoxetine. According to the sister, patient has been sitting at home, lives with her, sitting in the dark and just drinks vodka and stating that he wants to . Plan is to consult mental health crisis when patient is medically stable. #3 COPD: Clinically stable, pulse ox is maintained on room air. Continue DuoNeb every 6 hours, albuterol PRN. #4 chronic pancytopenia/chronic thrombocytopenia: Stable. WBC, hemoglobin and platelet count are at baseline. No active bleeding. Pro time and INR were normal. #5 chronic alcoholic hepatitis: Total bilirubin as well as liver transaminases are elevated chronically, close to baseline. Alk phos is normal. Stable. #6 DVT prophylaxis: SCDs, no chemical prophylaxis because of thrombocytopenia. This note was generated with [employer] software. It may contain incorrect words, spelling, and punctuation that were not noted in checking the note before signing. Inpatient E&M: 75185 Subs Hosp L2
[2020-02-09] MEDS: Thiamine Hydrochloride 100 MG Tablet PO (08:11)
[2020-02-09] MEDS: FLUoxetine 20 MG Capsule PO (08:11)
[2020-02-09] MEDS: Folic Acid 1 MG Tablet PO (08:11)
[2020-02-09] MEDS: hydrOXYzine PAM 25 MG Capsule 50 MG PO (08:11)
[2020-02-09] MEDS: Loperamide 2 MG Capsule PO (15:15)
[2020-02-10 02:07] VITALS: BP 129/85; PULSE 82; RESP 16; TEMP 37.1; O2SAT 97
[2020-02-10] MEDS: Phenobarbital 32.4 MG Tablet 64.8 MG PO ×6 (04:07→23:40)
[2020-02-10 07:15] VITALS: PULSE 74; RESP 12
[2020-02-10] MEDS: Ipratropium/Albuterol Sulfate 3 ML AMPUL.NEB INHALATION (07:19)
[2020-02-10 07:50] VITALS: BP 95/63; PULSE 88; RESP 18; TEMP 36.3; O2SAT 98
[2020-02-10] MEDS: Thiamine Hydrochloride 100 MG Tablet PO (07:55)
[2020-02-10] MEDS: Folic Acid 1 MG Tablet PO (07:55)
--- NOTE | 2020-02-10 08:00 | PCM.PROGNOTE ---
Patient Problems: Active and Suspected Problems Acute alcohol withdrawal (Acute) Subjective: Chief complaint: Follow-up after admission for acute alcohol withdrawal and severe depression. Patient seen and examined. No acute events overnight. Today, he is feeling better but still having hand tremors and some anxiety. Sleeping is getting better overnight. No other complaints. His vital signs are stable. - Physical Exam Vitals/I&O's: Vital Signs Temp Pulse Resp BP Pulse Ox 97.4 F L 88 18 95/63 98 02/10/20 07:50 02/10/20 07:50 02/10/20 07:50 02/10/20 07:50 02/10/20 07:50 Oxygen Delivery Method Room Air Weight: 164 lb 8 oz Body Mass Index (BMI) 26.5 Intake and Output for Last 24 Hours 02/08/20 02/09/20 02/10/20 23:59 23:59 23:59 Intake Total 1450 / 1450 150 / 150 Output Total 350 / 350 Balance 1100 / 1100 150 / 150 General: Alert, No apparent distress, - - Tremors. HEENT: Atraumatic, PERRLA, EOMI, Normocephalic Oral: Moist Mucosa, No Gingival or Mucosal Lesions/ Ulcerations Neck: Supple, No JVD, Negative Carotid Bruits, Trachea Midline, Thyroid Normal Size and Texture Lungs: Clear to auscultation, Normal air movement, No rhonchi, No wheeze, No rales Cardiovascular: Regular rate, Regular Rhythm, Normal S1, Normal S2, PMI Normal Abdomen: Bowel Sounds Present, Soft, Non Tender, Non-Distended, No Hepato-splenomegaly Extremities: No clubbing, No cyanosis, No edema Skin: No rashes, No breakdown Lymphatic: No Cervical, Supraclavicular, or Inguinal Adenopathy Neurological: Cranial nerves II-XII grossly intact, Neuro grossly intact Psych/Mental Status: Appropriate, Flat Affect, Alert and oriented to time, place, person, mood and affect Current Medications Al Hydroxide/Mg Hydroxide (Mylanta Ii) 30 ml PO Q6H PRN PRN PRN Reason: dyspesia Albuterol Sulfate (Ventolin Aerosols) 2.5 mg INHALATION Q4H PRN PRN PRN Reason: Shortness of breath, wheezing Albuterol/Ipratropium (Duoneb) 3 ml INHALATION Q6H.RT [facility] Last Admin: 02/10/20 07:19 Dose: 3 ml Documented by: Dicyclomine HCl (Bentyl) 20 mg PO Q6H PRN PRN PRN Reason: abdominal discomfort Fluoxetine HCl (Prozac) 20 mg PO DAILY [facility] Last Admin: 02/09/20 08:11 Dose: 20 mg Documented by: Folic Acid (Folic Acid) 1 mg PO DAILY@0800 [facility] [place] Last Admin: 02/10/20 07:55 Dose: 1 mg Documented by: Gabapentin (Neurontin) 300 mg PO Q8H PRN PRN PRN Reason: moderate to severe anxiety Hydroxyzine Pamoate (Vistaril Pamoate Capsule) 50 mg PO Q4H PRN PRN PRN Reason: mild anxiety Last Admin: 02/09/20 08:11 Dose: 50 mg Documented by: Sodium Chloride () 250 mls @ 15 mls/hr IV .[id number] PRN PRN Reason: Saline Flush Ibuprofen (Motrin) 600 mg PO Q8H PRN PRN PRN Reason: Pain Score 1-10/10 Loperamide HCl (Imodium) 2 mg PO Q4H PRN PRN PRN Reason: LOOSE STOOLS Last Admin: 02/09/20 15:15 Dose: 2 mg Documented by: Ondansetron HCl (Zofran Odt) 8 mg PO Q8H PRN PRN PRN Reason: NAUSEA Phenobarbital (Phenobarbital) 64.8 mg PO Q4H [facility] [place]; Taper Stop: 02/13/20 03:59 Last Admin: 02/10/20 07:53 Dose: 64.8 mg Documented by: Sodium Chloride () 10 - 40 ml IV UD PRN PRN Reason: SALINE FLUSH Thi[facility]) [facility] Last Admin: 02/10/20 07:55 Dose: 100 mg Documented by: Trazodone HCl (Desyrel) 100 mg PO QHS PRN PRN Reason: INSOMNIA Medical Necessity - Tobacco Use Smoking Status: Former smoker Assessment/Plan All Active Problems Acute alcohol withdrawal (Acute) This is a 64 years old male patient presented to the emergency room requesting admission for acute alcohol withdrawal, found to have blood alcohol level of 333 and also complained of severe depression. #1 acute alcohol intoxication/withdrawal: Remained on tapering phenobarbital, thiamine, folic acid, PRN Bentyl, Neurontin, Vistaril, Motrin, Imodium, Zofran and trazodone. His symptoms started to improve, he was able to sleep last night but still having tremors. His vital signs are stable. Urine drug screen was positive for barbiturates. Patient remained appropriate for continued inpatient treatment with appropriate high level of care. Plan to continue same treatment, to be seen by [facility] tomorrow. #2 severe depression: Denied suicidal ideations or intentions. Continue fluoxetine. According to the sister, patient has been sitting at home, lives with her, sitting in the dark and just drinks vodka and stating that he wants to . Plan to be seen tomorrow by mental health crisis. #3 COPD: Clinically stable, pulse ox is maintained on room air. Continue DuoNeb every 6 hours, albuterol PRN. #4 chronic pancytopenia/chronic thrombocytopenia: Stable. WBC, hemoglobin and platelet count are at baseline. No active bleeding. Pro time and INR were normal. #5 chronic alcoholic hepatitis: Total bilirubin as well as liver transaminases are elevated chronically, close to baseline. Alk phos is normal. Stable. #6 DVT prophylaxis: SCDs, no chemical prophylaxis because of thrombocytopenia. This note was generated with [employer] dictation software. It may contain incorrect words, spelling, and punctuation that were not noted in checking the note before signing. Inpatient E&M: 16300 Subs Hosp L2
[2020-02-10] MEDS: FLUoxetine 20 MG Capsule PO (11:06)
[2020-02-10 16:15] VITALS: BP 126/87; PULSE 78; RESP 18; TEMP 36.6; O2SAT 96
[2020-02-10] MEDS: Loperamide 2 MG Capsule PO (16:20)
[2020-02-10 19:48] VITALS: BP 116/87; PULSE 82; RESP 18; TEMP 36.4; O2SAT 96
[2020-02-11 03:00] VITALS: BP 109/78; RESP 16; TEMP 36.5; O2SAT 97
[2020-02-11] MEDS: Phenobarbital 32.4 MG Tablet 64.8 MG PO ×3 (03:10→17:08)
[2020-02-11 08:14] VITALS: BP 109/78; PULSE 84; RESP 16; TEMP 36.6; O2SAT 99
[2020-02-11] MEDS: Thiamine Hydrochloride 100 MG Tablet PO (08:17)
[2020-02-11] MEDS: Folic Acid 1 MG Tablet PO (08:17)
[2020-02-11] MEDS: FLUoxetine 20 MG Capsule PO (08:18)
--- NOTE | 2020-02-11 10:32 | PCM.DC ---
- Discharge Diagnoses Current Active Problems: Current Active and Chronic Problems Acute alcohol withdrawal (Acute) Alcohol abuse (Chronic) You will use the following diet at home:: Regular Your food should be the consistency of: Regular Discharge Activity: Return to Normal Activity Weight Bearing Status: Full weight bearing Call your doctor if you observe: Fever of 101 or Higher, Shortness of breath, Dizziness, Fainting spells, Chest pain, Increased palpitations (irregular heartbeat), Uncontrolled pain Instructions: Recovering from Addiction: Continuing with Counseling Additional Instructions: Please follow-up with the [facility] program as outpatient. Allergies/Adverse Reactions: Allergies oxycodone [From Percocet] Allergy (Verified 02/08/20 13:50) Hives lorazepam [From Ativan] Adverse Reaction (Verified 02/08/20 13:50) HALLUCINATIONS Medications to take at Discharge Fluticasone/Vilanterol [Breo Ellipta 100-25 Mcg INH] 1 puff INHALATION DAILY PRN PRN 11/07/19 Fluoxetine [Prozac] 20 mg PO DAILY #90 cap 02/11/20 Folic Acid 1 mg PO DAILY@0800 #30 tab 02/11/20 Thiamine Hydrochloride [Vitamin B1] 100 mg PO DAILYCM #30 tab 02/11/20 The following prescriptions were given: Folic Acid 1 mg PO DAILY@0800 #30 tab Transmission Status: Pending to [facility] Fluoxetine [Prozac] 20 mg PO DAILY #90 cap Transmission Status: Pending to [facility] Thiamine Hydrochloride [Vitamin B1] 100 mg PO DAILYCM #30 tab Transmission Status: Pending to [facility] Primary Care Physician: Care Physician,No Primary [Primary Care Provider] - Please follow up with your Primary Care Physician in: 1-2 weeks. Test Results: Test results from this visit will be discussed in further detail at your follow-up appointment, if applicable.
--- NOTE | 2020-02-11 12:05 | PCM.DC.SUM ---
Discharge Date and Diagnosis - Problem List Patient Problems: Active and Suspected Problems Acute alcohol withdrawal (Acute) Date of Admission: 02/08/20 Date of Discharge: 02/11/20 - Primary Discharge Diagnosis Acute Problems: Active Problems #1 acute alcohol withdrawal (Acute). #2 acute cystitis. #3 severe depression. - Secondary Discharge Diagnosis Chronic Problems: Chronic Problems Alcohol abuse (Chronic) COPD (chronic obstructive pulmonary disease) (Chronic) Former tobacco use (Chronic) Thrombocytopenia (Chronic) Chronic alcoholic hepatitis (Chronic) Hospital Course and Treatment Imaging Results: Clinical Impression(s) from Imaging Studies Brain CT 02/08/20 14:31 IMPRESSION: No acute intracranial process. Electronically Signed: Sam Spence MD at 15:31 EDT Tel , Service support , Cervical Spine CT 02/08/20 14:31 IMPRESSION: Multilevel degenerative changes, as described above. No demonstrated acute fracture. If symptoms persist, MRI of the cervical spine is recommended. Electronically Signed: Sam Spence MD at 15:29 EDT Tel , Service support , Ribs w/Chest X-Ray 02/08/20 15:20 IMPRESSION: RIBS: Normal x-ray examination of the ribs. CHEST: Normal x-ray examination of the chest. Electronically Signed: Ulices Harrison DO at 16:25 EDT Tel [phone], Service support , Consultations 02/11/20 07:00 Consult: Mental Health/Crisis Routine Reason for consult?: Severe depression. Date Notified:: 02/11/20 Time Notified:: 10:26 Operations: None Procedures: None Summary of Care Provided: Patient seen and examined on the day of discharge and appeared to be stable to be discharged home. He was able to sleep well last night, no more anxiety or tremors. His vital signs are stable. The patient is a 64 year old M presented to the emergency room requesting admission for acute alcohol withdrawal. Patient was found to have blood alcohol level of 333. He was discharged in the hospital recently after admission for acute alcohol withdrawal for medical stabilization. Patient sister mentioned that patient has been living with her, sitting in the dark most of his time and drinking alcohol and stated that he wants to . Patient himself denied any suicidal ideations or intention. Reportedly, he was several months ago and his within anniversary is coming soon as well as his birthday. Patient is very depressed but again denied suicidal ideations or intentions. His routine blood work revealed chronic pancytopenia with chronic thrombocytopenia which is attributed to chronic liver disease. His WBC, hemoglobin and platelet count are at his baseline. Urinalysis revealed cloudy urine, positive for nitrite, there was 5-10 WBCs and 1+ bacteria. Patient was given 1 dose of IV ciprofloxacin and was discharged on p.o. ciprofloxacin. Bleeding or infection. Pro time and INR were normal. He had a chronic alcoholic hepatitis and his liver transaminases and bilirubin are slightly elevated and that is chronic. Patient was admitted to Med[facility] floor, started on phenobarbital taper, folic acid, thiamine, PRN Bentyl, Neurontin, Vistaril, Motrin, Imodium, Zofran and trazodone. He was started on fluoxetine for severe depression. Consult was made to mental health crisis and they will see the patient later today before discharge. I do think patient will need inpatient psychiatric treatment or evaluation and he can be managed as outpatient. Patient discharged home in a stable condition, discharged on ciprofloxacin 500 mg p.o. twice daily, started on fluoxetine for depression, discharged on folic acid and thiamine, plan to follow-up with [facility] for outpatient treatment, will follow the recommendation from the mental crisis team. Recommended follow-up with PCP in 1 to 2 weeks. Patient Problems: Active and Suspected Problems Acute alcohol withdrawal (Acute) - Physical Exam Vitals/I&O's: Vital Signs Temp Pulse Resp BP Pulse Ox 97.8 F 84 16 109/78 99 02/11/20 08:14 02/11/20 08:14 02/11/20 08:14 02/11/20 08:14 02/11/20 08:14 Oxygen Delivery Method Room Air Weight: 164 lb 8 oz Body Mass Index (BMI) 26.5 Intake and Output for Last 24 Hours 02/09/20 02/10/20 02/11/20 23:59 23:59 23:59 Intake Total 1450 / 1450 1669 400 / 400 Output Total 350 / 350 Balance 1100 / 1100 1669 400 / 400 General: Alert, Oriented x3, Cooperative, No apparent distress HEENT: Atraumatic, PERRLA, EOMI, Normocephalic Oral: Moist Mucosa, No Gingival or Mucosal Lesions/ Ulcerations Neck: Supple, No JVD, Negative Carotid Bruits, Trachea Midline, Thyroid Normal Size and Texture Lungs: Clear to auscultation, Normal air movement, No rhonchi, No wheeze, No rales Cardiovascular: Regular rate, Regular Rhythm, Normal S1, Normal S2, PMI Normal Abdomen: Bowel Sounds Present, Soft, Non Tender, Non-Distended, No Hepato-splenomegaly Extremities: No clubbing, No cyanosis, No edema Skin: No rashes, No breakdown Lymphatic: No Cervical, Supraclavicular, or Inguinal Adenopathy Neurological: Cranial nerves II-XII grossly intact, Neuro grossly intact Psych/Mental Status: Normal Affect, Appropriate Current Medications Al Hydroxide/Mg Hydroxide (Mylanta Ii) 30 ml PO Q6H PRN PRN PRN Reason: dyspesia Albuterol Sulfate (Ventolin Aerosols) 2.5 mg INHALATION Q4H PRN PRN PRN Reason: Shortness of breath, wheezing Albuterol/Ipratropium (Duoneb) 3 ml INHALATION Q6H.RT [facility] Last Admin: 02/11/20 07:10 Dose: Not Given Documented by: Dicyclomine HCl (Bentyl) 20 mg PO Q6H PRN PRN PRN Reason: abdominal discomfort Fluoxetine HCl (Prozac) 20 mg PO DAILY [facility] Last Admin: 02/11/20 08:18 Dose: 20 mg Documented by: Folic Acid (Folic Acid) 1 mg PO DAILY@0800 [facility] Last Admin: 02/11/20 08:17 Dose: 1 mg Documented by: Gabapentin (Neurontin) 300 mg PO Q8H PRN PRN PRN Reason: moderate to severe anxiety Hydroxyzine Pamoate (Vistaril Pamoate Capsule) 50 mg PO Q4H PRN PRN PRN Reason: mild anxiety Last Admin: 02/09/20 08:11 Dose: 50 mg Documented by: Sodium Chloride () 250 mls @ 15 mls/hr IV .[id number] PRN PRN Reason: Saline Flush Ibuprofen (Motrin) 600 mg PO Q8H PRN PRN PRN Reason: Pain Score 1-10/10 Loperamide HCl (Imodium) 2 mg PO Q4H PRN PRN PRN Reason: LOOSE STOOLS Last Admin: 02/10/20 16:20 Dose: 2 mg Documented by: Ondansetron HCl (Zofran Odt) 8 mg PO Q8H PRN PRN PRN Reason: NAUSEA Phenobarbital (Phenobarbital) 64.8 mg PO Q6H [facility]; Taper Stop: 02/13/20 03:59 Last Admin: 02/11/20 10:28 Dose: 64.8 mg Documented by: Sodium Chloride () 10 - 40 ml IV UD PRN PRN Reason: SALINE FLUSH Thiamine HCl (Vitamin B1) 100 mg PO DAILYCM [facility] Last Admin: 02/11/20 08:17 Dose: 100 mg Documented by: Trazodone HCl (Desyrel) 100 mg PO QHS PRN PRN Reason: INSOMNIA Discharge Activity: Return to Normal Activity Weight Bearing Status: Full weight bearing Call your doctor if you observe: Fever of 101 or Higher, Shortness of breath, Dizziness, Fainting spells, Chest pain, Increased palpitations (irregular heartbeat), Uncontrolled pain Home Medications: Medications to take at Discharge Fluticasone/Vilanterol [Breo Ellipta 100-25 Mcg INH] 1 puff INHALATION DAILY PRN PRN 11/07/19 Ciprofloxacin [Cipro] 500 mg PO BID #14 tab 02/11/20 Fluoxetine [Prozac] 20 mg PO DAILY #90 cap 02/11/20 Folic Acid 1 mg PO DAILY@0800 #30 tab 02/11/20 Thiamine Hydrochloride [Vitamin B1] 100 mg PO DAILYCM #30 tab 02/11/20 Following Prescriptions Were Given to Patient: Ciprofloxacin [Cipro] 500 mg PO BID #14 tab Transmission Status: Received by [facility] Folic Acid 1 mg PO DAILY@0800 #30 tab Transmission Status: Received by [facility] Fluoxetine [Prozac] 20 mg PO DAILY #90 cap Transmission Status: Received by [facility] Thiamine Hydrochloride [Vitamin B1] 100 mg PO DAILYCM #30 tab Transmission Status: Received by [facility] Primary Care Physician: Care Physician,No Primary [Primary Care Provider] - Please follow up with your Primary Care Physician in: 1-2 weeks. Patient Instructions: Recovering from Addiction: Continuing with Counseling Disposition: Home Minutes spent on discharge:: 32 Patient Condition:: Stable Medical Necessity - Tobacco Use Smoking Status: Former smoker Meaningful Use Info Meaningful Use Diagnoses (Choose all that apply): None applicable Inpatient E&M: 72777 Disch Hosp
--- NOTE | 2020-02-11 12:11 | PCM.DC ---
- Discharge Diagnoses Current Active Problems: Current Active and Chronic Problems Acute alcohol withdrawal (Acute) Alcohol abuse (Chronic) You will use the following diet at home:: Regular Your food should be the consistency of: Regular Discharge Activity: Return to Normal Activity Weight Bearing Status: Full weight bearing Call your doctor if you observe: Fever of 101 or Higher, Shortness of breath, Dizziness, Fainting spells, Chest pain, Increased palpitations (irregular heartbeat), Uncontrolled pain Instructions: Recovering from Addiction: Continuing with Counseling Allergies/Adverse Reactions: Allergies oxycodone [From Percocet] Allergy (Verified 02/08/20 13:50) Hives lorazepam [From Ativan] Adverse Reaction (Verified 02/08/20 13:50) HALLUCINATIONS Medications to take at Discharge Fluticasone/Vilanterol [Breo Ellipta 100-25 Mcg INH] 1 puff INHALATION DAILY PRN PRN 11/07/19 Ciprofloxacin [Cipro] 500 mg PO BID #14 tab 02/11/20 Fluoxetine [Prozac] 20 mg PO DAILY #90 cap 02/11/20 Folic Acid 1 mg PO DAILY@0800 #30 tab 02/11/20 Thiamine Hydrochloride [Vitamin B1] 100 mg PO DAILYCM #30 tab 02/11/20 The following prescriptions were given: Ciprofloxacin [Cipro] 500 mg PO BID #14 tab Transmission Status: Sent to [facility] Folic Acid 1 mg PO DAILY@0800 #30 tab Transmission Status: Received by [facility] Fluoxetine [Prozac] 20 mg PO DAILY #90 cap Transmission Status: Received by [facility] Thiamine Hydrochloride [Vitamin B1] 100 mg PO DAILYCM #30 tab Transmission Status: Received by [facility] Primary Care Physician: Care Physician,No Primary [Primary Care Provider] - Please follow up with your Primary Care Physician in: 1-2 weeks. Test Results: Test results from this visit will be discussed in further detail at your follow-up appointment, if applicable.
--- NOTE | 2020-02-11 13:04 | PHA.DC.MC ---
Pharmacy Service has performed discharge medication reconciliation and counseling for this patient. 1. FOLIC ACID 1MG PO DAILY 2. FLUOXETINE 20MG PO DAILY 3. THIAMINE 100MG PO DAILY 4. CIPROFLOXACIN 500MG PO Q12 X 7 DAYS The patient's discharge medication list was reviewed for discrepancies and discrepancies were resolved. Home Medications Fluticasone/Vilanterol [Breo Ellipta 100-25 Mcg INH] 1 puff INHALATION DAILY PRN PRN 11/07/19 Ciprofloxacin [Cipro] 500 mg PO BID #14 tab 02/11/20 Fluoxetine [Prozac] 20 mg PO DAILY #90 cap 02/11/20 Folic Acid 1 mg PO DAILY@0800 #30 tab 02/11/20 Thiamine Hydrochloride [Vitamin B1] 100 mg PO DAILYCM #30 tab 02/11/20 The patient was counseled on the following discharge medications and changes in medications for homegoing were reviewed. The Reason for Use, instructions for use, and potential side effects were reviewed for all new medications. The patient's questions regarding all of their medications were answered. The patient was able to verbally demonstrate an understanding of their discharge medications. Patient counseled by pharmacy coordinator, Gilma.
[2020-02-11] MEDS: Ciprofloxacin 400 MG/200 ML BAG 200 MG IV (13:29)
[2020-02-11] MEDS: 0.9% Saline Lock 10 ML Syringe IV (13:29)
--- NOTE | 2020-02-11 14:25 | ADDICTION ---
This underwriter solicitation director attempted to meet with patient in his room. patient did not rouse to 3 attempts at verbal queuing. Patient completed discharge plan yesterday with [facility]. This underwriter solicitation director will attempt to meet with patient at next visit.
[2020-02-11 16:23] VITALS: BP 96/69; PULSE 81; RESP 18; TEMP 36.7; O2SAT 96
--- NOTE | 2020-02-11 17:09 | NURSING ---
Stu at Crisis spoke with pt- Stu states that pt does not qualify for inpatient therapy for depression- rather he needs to follow up with counseling center [place]. Stu states he will send paperwork over.
--- NOTE | 2020-02-11 18:00 | NURSING ---
1026- consult completed to Crisis. 1031- Cortext Dr. Goetz and informed Crisis states will be a couple hours until can come see pt. 1728 Dr. Milton updated per Stu in Crisis and paperwork will be completed sometime after [address] Goetz aware pt states he has no one to come pick him up as his sister works second shift, he has tried 2 other siblings and they are not able to pick him up. 1737- spoke with Nursing special assemblies supervisor regarding pt with difficutlies with being able to find transportation- [facility] unable to provide taxi service to [place]. Pt updated and aware- he inquires about [employer], however states he does not have his wallet on him nor does he have his cell phone. Nurse inquired if pt can ask his sister Lakisha to come after she is done with work- pt states she is not able to. 1748- spoke with pt again, pt states he may just walk to [facility] in [place]. Said nurse phoned number for Rach [phone] to verify her cell number with pt permission. Lakisha answers phone- verified Lakisha cell phone number [phone], BRII states that his truck is broke down so he is not able to come get pt, states his will not be able to come get pt after she is done working, also states that pt other brother in [place] is not able to come get pt until tomorrow. Lakisha's spouse states that she may not answer her phone because she is at work. 1749 spoke with Ibeth ARRIAGA in ER, updated on situation. Ibeth states pt not able to go to [facility] because he does not have any ID with him. Updated that pt does not have transportation available tonight to take him to his sisters house. No new resources at this time for pt.
--- NOTE | 2020-02-11 19:56 | NURSING ---
Received a call from ER lost charge card clerk that pt's ride was down in the ER. Marichuy DIRECTOR CRITICAL CARE taking pt to meet him at this time.
== END 2020-02-11 20:00 | disposition home or self-care (01) | DRG 897 ==
LOC: ED 15:36 → MS3 16:06
PROVIDERS: Admitting Provider Hospitalist; Emergency Provider Physician Assistant; Visit Provider Hospitalist
DX: F10.239 Alcohol dependence with withdrawal, unspecified (principal); N30.00 Acute cystitis without hematuria; D61.818 Other pancytopenia; F10.229 Alcohol dependence with intoxication, unspecified; Y90.8 Blood alcohol level of 240 mg/100 ml or more; K70.10 Alcoholic hepatitis without ascites; R07.81 Pleurodynia; J44.9 Chronic obstructive pulmonary disease, unspecified; F32.9 Major depressive disorder, single episode, unspecified; Z87.891 Personal history of nicotine dependence
CPT/HCPCS: 70450; 71101; 72125; 80053; 80307; 80320; 81001; 85025; 85610; 93005; 94640; 97162; 97802; 99251; 99285; J7050; A4216; G0463; G0480; J0744

== ENCOUNTER 2020-05-25 10:12 | Inpatient (IN) | payer OTHER, SELFPAY ==
[2020-02-08 16:55] VITALS: BMI 26.5
[2020-05-25] VITALS (8 sets, daily range): BP systolic 111–130; BP diastolic 80–94; PULSE 70–100; RESP 14–18; TEMP 36.4–36.8; O2SAT 94–98; BMI 28.0; BMI 27.6
--- NOTE | 2020-05-25 10:33 | ED.VIS.GEN ---
History of Present Illness Chief Complaint: Substance Abuse Narrative: Patient presenting requesting inpatient detoxification from alcohol addiction. He states he was last here in the summer, but because of Covid and social distancing, he has been slipping. The last time he was admitted he was drinking about 1/5 of vodka per day, now he is over 1 pint per day but not quite to the previous level. He does often feel shaky and have some mild withdrawal symptoms in the mornings before he starts drinking, his last drink was this morning approximately 1.5 hours ago when he is currently asymptomatic. No recent illnesses. He thinks he may have had Covid in March 2 months ago, he did not get tested and the symptoms resolved without any major life-threatening problems and he did not require evaluation by any doctors or the emergency room. He states he was congested very fatigued and achy, fevers, and diarrhea with minimal coughing. Patient presents during the national coronavirus emergency declaration/pandemic. He denies any recent known contact with anyone infected with COVID-19. He denies traveling out of the immediate area recently. He denies depression or suicidal thoughts. - Past Medical History (1) Alcoholism Status: Chronic (2) COPD (chronic obstructive pulmonary disease) Status: Chronic (3) Chronic alcoholic hepatitis Status: Chronic Past Medical History - Allergies and Home Meds Allergies/Adverse Reactions: Allergies oxycodone [From Percocet] Allergy (Verified 05/25/20 10:13) Hives lorazepam [From Ativan] Adverse Reaction (Verified 05/25/20 10:13) HALLUCINATIONS Primary Care Physician: Care Physician,No Primary [NON-STAFF] - Surgical History: - - Left total hip replacement, low back surgery, left shoulder arthroscopic surgery. Smoking Status: Former smoker Alcohol: Heavy Drugs: None - Family History Maternal Family History: Reports: - - Patient notes a maternal family history of pulmonary disease. Paternal Family History: Reports: - - Patient notes paternal family history of cancer, throat. Review of Systems General: Denies: Chills, Fever, Sweats Eyes: Denies: Visual changes - bilaterally, Diplopia ENT: Denies: Rhinorrhea, Sore throat Cardiovascular: Denies: Chest pain, Palpitations Respiratory: Denies: Dyspnea, Cough, Dyspnea on exertion Gastrointestinal: Denies: Abdominal pain, Nausea, Vomiting, Diarrhea, Melena, Hematochezia Genitourinary: Denies: Dysuria, Hematuria, Frequency Musculoskeletal: Denies: Myalgias, Back pain, Swelling, Extremity Pain Skin: Denies: Rash, Wounds Neurological: Denies: Headache, Weakness, Numbness Physical Exam Vital Signs/Narrative: Vital Signs Temp Pulse Resp BP Pulse Ox 05/25/20 10:28 97.8 F 76 16 130/93 H 97 05/25/20 10:14 97.8 F 100 18 112/80 97 Inital Vital Signs reviewed: Yes General: Well nourished, Well developed, No Acute Distress - Well-appearing and in no distress Head: Normocephalic, Atraumatic Eyes: Perrl, EOMI ENT: Moist mucous membranes, No rhinorrhea Neck: Supple, Nontender Cardiovascular: Regular rate, Regular rhythm, No murmurs Respiratory: No distress, CTA bilaterally, Chest nontender Abdomen: Soft, Nontender, Nondistended, Normal bowel sounds Back: Nontender, Normal Inspection Extremities: Nontender, No edema. Negative for: Calf Tenderness Skin: Normal color, No rash, No Trauma Neurological: Alert, Oriented x3, Cranial nerves II-XII grossly intact, Normal Strength, Normal Sensation Psychological: Normal affect, Normal Mood Diagnostic/Tx/Re-eval Laboratory Results 05/25/20 05/25/20 05/25/20 10:55 10:55 10:55 WBC 5.4 RBC 4.38 L Hgb 14.3 Hct 42.7 MCV 97.5 H MCH 32.6 H MCHC 33.5 RDW Std Deviation 56.9 H RDW Coeff of Klarissa 17.2 H Plt Count 94 L MPV 10.1 Immature Gran % (Auto) 0.200 Neut % (Auto) 47.5 Lymph % (Auto) 32.6 [place] % (Auto) 14.6 H Eos % (Auto) 4.5 Baso % (Auto) 0.6 Absolute Neuts (auto) 2.6 Absolute Lymphs (auto) 1.75 Nucleated RBC % 0 PT 14.5 INR 1.2 Sodium 137 Potassium 3.7 Chloride 103 Carbon Dioxide 26.0 Anion Gap 8 BUN 7 Creatinine 0.82 Estim Creat Clear Calc 83.21 Est GFR (MDRD) Af Amer 121 Est GFR (MDRD) Non-Af 100 BUN/Creatinine Ratio 8.5 L Glucose 89 Calcium 8.8 Total Bilirubin 0.60 AST 156 H ALT 87 H Alkaline Phosphatase 89 Total Protein 7.0 Albumin 3.4 Globulin 3.6 Albumin/Globulin Ratio 0.9 Urine Opiates Screen Urine Methadone Screen Ur Barbiturates Screen Ur Phencyclidine Scrn Ur Amphetamines Screen U Methamphetamin-MDMA U Benzodiazepines Scrn Urine Cocaine Screen U Cannabinoids Screen Ur Drug Screen Comment Ethyl Alcohol 05/25/20 05/25/20 10:55 11:05 WBC RBC Hgb Hct MCV MCH MCHC RDW Std Deviation RDW Coeff of Klarissa Plt Count MPV Immature Gran % (Auto) Neut % (Auto) Lymph % (Auto) [place] % (Auto) Eos % (Auto) Baso % (Auto) Absolute Neuts (auto) Absolute Lymphs (auto) Nucleated RBC % PT INR Sodium Potassium Chloride Carbon Dioxide Anion Gap BUN Creatinine Estim Creat Clear Calc Est GFR (MDRD) Af Amer Est GFR (MDRD) Non-Af BUN/Creatinine Ratio Glucose Calcium Total Bilirubin AST ALT Alkaline Phosphatase Total Protein Albumin Globulin Albumin/Globulin Ratio Urine Opiates Screen NEGATIVE Urine Methadone Screen NEGATIVE Ur Barbiturates Screen NEGATIVE Ur Phencyclidine Scrn NEGATIVE Ur Amphetamines Screen NEGATIVE U Methamphetamin-MDMA NEGATIVE U Benzodiazepines Scrn NEGATIVE Urine Cocaine Screen NEGATIVE U Cannabinoids Screen NEGATIVE Ur Drug Screen Comment Ethyl Alcohol 94.0 - Medical Decision Making Patient doing well in the ER, asymptomatic without acute withdrawal symptoms. Plan is for admission for inpatient detoxification. ED Disposition - Plan for ED Patient: Disposition: Acute Care [facility] Diagnosis: Alcohol dependence Referrals: Care Physician,No Primary [NON-STAFF] -
[2020-05-25 11:08] LABS: Absolute Lymphocyte Count 1.75 X10^3/uL (0.83-4.51); Absolute Neutrophil Count 2.6 X10^3/uL (2.0-7.7); Basophil# 0.03 X10^3/uL; Basophil% 0.6 % (0-1); Eosinophil# 0.24 X10^3/uL; Eosinophils% 4.5 % (0-5); Hematocrit 42.7 % (40-54); Hemoglobin 14.3 g/dL (13.0-16.5); Lymphocyte # 1.75 X10^3/ul (4.0); Lymphocyte % 32.6 % (19-41); Mean Corp Hgb Conc 33.5 g/dL (32-36); Mean Corpuscular Hgb 32.6 pg (27.0-32.0); Mean Corpuscular Volume 97.5 fL (80-94); Mean Platelet Vol. 10.1 fl (6.2-12.0); Monocyte# 0.78 X10^3/uL; Monocyte% 14.6 % (0-10); NRBC Flagged by Analyzer 0 % (0-5); Neutrophil # 2.55 X10^3/uL (2.7-7.7); Neutrophil % 47.5 % (47-70); POSITIVE COUNT YES; Platelet Count 94 K/mm3 (150-450); RBC Distribution Width CV 17.2 % (11.6-14.6); RBC Distribution Width SD 56.9 fl (35.1-43.9); Red Blood Count 4.38 M/mm3 (4.6-6.2); White Blood Count 5.4 K/mm3 (4.4-11.0)
[2020-05-25 11:23] LABS: Amphetamine Urine VISTA NEGATIVE (<1000 ng/mL); Barbiturate Urine VISTA NEGATIVE (< 200 ng/mL); Benzodiazepine Urine VISTA NEGATIVE (< 200 ng/mL); Cocaine Urine VISTA NEGATIVE (< 300 ng/mL); Ecstacy Urine VISTA NEGATIVE (< 500 ng/mL); Methadone Urine VISTA NEGATIVE (< 300 ng/mL); PCP Urine VISTA NEGATIVE (< 25 ng/mL); THC Urine VISTA NEGATIVE (< 50 ng/mL); Vista UDS pH Range 6
[2020-05-25 11:28] LABS: International Normalized Ratio 1.2; Prothrombin Time (Protime)PT. 14.5 SECONDS (11.7-14.9)
[2020-05-25 11:37] LABS: ALB/GLOB Ratio 0.9 RATIO (0.9-2.4); AST(SGOT) 156 U/L (15-37); Alanine Aminotransfer ALT/SGPT 87 U/L (16-61); Albumin, Serum 3.4 g/dL (3.2-5.0); Alkaline Phosphatase 89 U/L (45-117); Anion Gap 8 (5-15); BUN 7 mg/dL (7-18); BUN/Creat Ratio 8.5 RATIO (10-20); Calcium,Total 8.8 mg/dL (8.5-10.1); Chloride 103 mmol/L (98-107); Creatinine, Serum 0.82 mg/dL (0.70-1.30); EST Glomerular Filtration Rate 100 mL/min (>60); Est Glom Filt Rate - Afr Amer 121 mL/min (>60); Estimated Creatinine Clearance 83.21 ml/min; Globulin 3.6 g/dL (2.2-4.2); Glucose 89 mg/dL (74-106); Potassium 3.7 mmol/L (3.5-5.1); Sodium Level 137 mmol/L (136-145)
[2020-05-25] MEDS: Phenobarbital 32.4 MG Tablet 64.8 MG PO ×3 (13:23→21:26)
--- NOTE | 2020-05-25 14:39 | CASEMGMT ---
Social Work Note Pt is RAMP pt. SW placed a call to Robin at [facility]. Robin states she will be in tomorrow to speak with pt. Aminah Bermeo LAPEL PADDER BLINDSTITCH, COMMISSION AGENT LIVESTOCK
[2020-05-25] MEDS: FLUoxetine 10 MG Capsule PO (17:26)
--- NOTE | 2020-05-25 19:39 | PCM.HP.STD ---
Problem List (1) Request for alcohol detox services Status: Acute History of Present Illness Date of Admission: 05/25/20 Chief Complaint: Chronic alcoholism, request for alcohol detox services The patient is a 65 year old M was seen in the emergency room at [facility] requesting admission for alcohol detox services. Patient states that he has a chronic alcohol problem, he ingests approximately a pint of full-strength vodka per day. Patient has been through alcohol detox services at the hospital here 5 previous times this year alone. Patient states that because of COVID-19, he has been unable to go to AA meetings and he blames this for his continued drinking. Patient says his plan is to be admitted to an inpatient alcohol detox service near where he lives-he does admit that he is not contacted this detox facility and has no idea if they have any beds for him to undergo inpatient detox services. Patient denies abuse of any other drugs other than alcohol. At this time, patient's blood alcohol level was 94, his chemistry profile was unremarkable except for some minor elevations in his AST and ALT liver enzymes. Patient complains of tremor and feelings of anxiety at this time. Patient has a history of depression and he says he was not able to get his antidepressant refilled due to the fact that he had not made an office visit with his PCP. Patient will be admitted to the inpatient alcohol detox program here at [facility] on MedSurg 3, patient will be placed on phenobarbital taper, I do not feel that he needs DVT prophylaxis at this time. I will restart the patient's Prozac which she was on as an outpatient until he ran out of the medication. Past Medical History Past Medical History (Chronic Problems): Chronic Problems Alcoholism (Chronic) Alcohol abuse (Chronic) COPD (chronic obstructive pulmonary disease) (Chronic) Former tobacco use (Chronic) Thrombocytopenia (Chronic) Chronic alcoholic hepatitis (Chronic) Allergies oxycodone [From Percocet] Allergy (Verified 05/25/20 10:13) Hives lorazepam [From Ativan] Adverse Reaction (Verified 05/25/20 10:13) HALLUCINATIONS Home Medications: Ambulatory Orders Medication Instructions Recorded Fluticasone/Vilanterol [Breo 1 puff INHALATION DAILY PRN PRN 11/07/19 Ellipta 100-25 Mcg INH] Folic Acid 1 mg PO DAILY@0800 #30 tab 02/11/20 Thiamine Hydrochloride [Vitamin B1] 100 mg PO DAILYCM #30 tab 02/11/20 Multivitamin with Minerals 1 ea PO DAILY 05/25/20 [Multiple Vitamin] Surgical History: - - Left total hip replacement, low back surgery, left shoulder arthroscopic surgery. Psychiatric History: No pertinent psych hx Lives: With Family Smoking Status: Former smoker Tobacco Use: Non-smoker, Chew Alcohol: Heavy Drugs: None - *Family History Maternal History Items: - - Patient notes a maternal family history of pulmonary disease. Paternal History Items: - - Patient notes paternal family history of cancer, throat. Review of Systems Constitutional: Denies: Anorexia, Chills, Fever, Night Sweats, Weakness, Weight Change Eyes: Denies: Cataracts, Conjunctivae Inflammation, Double vision, Drainage HEENT: Denies: Difficulty Swallowing, Dysphasia, Ear Pain, Eye Pain, Hearing Changes, Nasal bleeding, Nasal Congestion, Post Nasal Drip Cardiovascular: Denies: Chest Pain, Claudication, Chest Pressure, Chest Tightness, Palpitations Respiratory: Denies: Cough, Hemoptysis, Pleuritic Pain, Shortness of Breath, Shortness of breath at rest, Shortness of breath upon exertion Gastrointestinal: Denies: Abdominal Pain, Constipation, Diarrhea, Hematemesis, Hematochezia, Nausea, Melena, Vomiting Genitourinary: Denies: Dysuria, Frequency, Hematuria, Hesitancy, Urgency Musculoskeletal: Denies: Joint Pain, Joint stiffness, Joint swelling Skin: Denies: Dryness, Pruritis, Rash Neurological: Reports: Tremor. Denies: Blurred vision, Double vision, Slurred speech, Difficulty swallowing, Focal weakness, Numbness, Tingling Psychiatric: Reports: Anxiety, Depression. Denies: Homicidal Ideations, Suicidal Ideations Endocrine: Denies: Change in Body Habitus, Heat/ Cold Intolerance, Polydipsia, Polyuria Hematologic/ Lymphatic: Denies: Adenopathy, Anemia, Easy Bruising, Easy Bleeding, Petechiae, Purpura VTE Information - Inpt Only VTE Present on Admission: No VTE Mechan Device Prophylaxis: None VTE Pharm Prophylaxis ordered?: No Reason prophylaxis not ordered:: Treatment Not Indicated Patient Problems: Active and Suspected Problems Alcohol dependence (Acute) - Physical Exam Vitals/I&O's: Vital Signs Temp Pulse Resp BP Pulse Ox 97.6 F L 80 16 111/86 H 95 05/25/20 14:44 05/25/20 14:44 05/25/20 14:44 05/25/20 14:44 05/25/20 14:44 Oxygen Delivery Method Room Air Weight: 78.839 kg Body Mass Index (BMI) 27.6 General: Alert, Oriented x3, Cooperative, No apparent distress, Well developed, Well nourished HEENT: Atraumatic, PERRLA, EOMI, Normocephalic Oral: Moist Mucosa Neck: Supple, No JVD, Negative Carotid Bruits, Trachea Midline, Thyroid Normal Size and Texture Lungs: Clear to auscultation, Normal air movement, No rhonchi, No wheeze, No rales Cardiovascular: Regular rate, Regular Rhythm, Normal S1, Normal S2, No murmurs Abdomen: Bowel Sounds Present, Soft, Non Tender, Non-Distended Extremities: No clubbing, No cyanosis, No edema, Capillary Refill Less than 3 Seconds Skin: No rashes, No breakdown Musculoskeletal: No Tenderness to Palpation of Joints or Extremities Neurological: Cranial nerves II-XII grossly intact, Neuro grossly intact, Sensory exam intact to light touch and pain, Coordination normal Psych/Mental Status: Normal Affect, Appropriate, Anxious - Patient exhibits mild anxiety, - - Patient exhibits mild resting tremor Laboratory Results 05/25/20 10:55: WBC 5.4, RBC 4.38 L, Hgb 14.3, Hct 42.7, MCV 97.5 H, MCH 32.6 H, MCHC 33.5, RDW Std Deviation 56.9 H, RDW Coeff of Klarissa 17.2 H, Plt Count 94 L, MPV 10.1, Immature Gran % (Auto) 0.200, Neut % (Auto) 47.5, Lymph % (Auto) 32.6, [place] % (Auto) 14.6 H, Eos % (Auto) 4.5, Baso % (Auto) 0.6, Absolute Neuts (auto) 2.6, Absolute Lymphs (auto) 1.75, Nucleated RBC % 0 05/25/20 10:55: PT 14.5, INR 1.2 05/25/20 10:55: Sodium 137, Potassium 3.7, Chloride 103, Carbon Dioxide 26.0, Anion Gap 8, BUN 7, Creatinine 0.82, Estim Creat Clear Calc 83.21, Est GFR (MDRD) Af Amer 121, Est GFR (MDRD) Non-Af 100, BUN/Creatinine Ratio 8.5 L, Glucose 89, Calcium 8.8, Total Bilirubin 0.60, AST 156 H, ALT 87 H, Alkaline Phosphatase 89, Total Protein 7.0, Albumin 3.4, Globulin 3.6, Albumin/Globulin Ratio 0.9 05/25/20 10:55: Ethyl Alcohol 94.0 05/25/20 11:05: Urine Opiates Screen NEGATIVE, Urine Methadone Screen NEGATIVE, Ur Barbiturates Screen NEGATIVE, Ur Phencyclidine Scrn NEGATIVE, Ur Amphetamines Screen NEGATIVE, U Methamphetamin-MDMA NEGATIVE, U Benzodiazepines Scrn NEGATIVE, Urine Cocaine Screen NEGATIVE, U Cannabinoids Screen NEGATIVE, Ur Drug Screen Comment Current Medications Acetaminophen (Acetaminophen 500 Mg Tablet) 500 mg PO Q4H PRN PRN PRN Reason: Temp > 100.4 F Dicyclomine HCl (Dicyclomine 10 Mg Capsule) 20 mg PO Q6H PRN PRN PRN Reason: abdominal discomfort Fluoxetine HCl (Fluoxetine 20 Mg Capsule) 20 mg PO DAILY JASVIR Folic Acid (Folic Acid 1 Mg Tablet) 1 mg PO DAILY@0800 JASVIR Sodium Chloride () 250 mls @ 15 mls/hr IV .[id number] PRN PRN Reason: Saline Flush Sodium Chloride () 250 mls @ 15 mls/hr IV .[id number] PRN PRN Reason: Additional IVPB Infusion Ibuprofen (Ibuprofen 600 Mg Tablet) 600 mg PO Q8H PRN PRN PRN Reason: Pain Score 1-10 Lorazepam (Lorazepam 1 Mg Tablet) 2 mg PO Q2H PRN PRN; Protocol PRN Reason: CIWA score > 8 but <15 Lorazepam (Lorazepam 1 Mg Tablet) 2 mg PO UD PRN; Protocol PRN Reason: CIWA score >/=15. Lorazepam (Lorazepam 2 Mg/Ml Syringe) 2 mg IV Q2H PRN PRN; Protocol PRN Reason: CIWA score > 8 but <15 Lorazepam (Lorazepam 2 Mg/Ml Syringe) 2 mg IV UD PRN; Protocol PRN Reason: CIWA score >/=15. Ondansetron HCl (Ondansetron 8 Mg Tablet) 8 mg PO Q8H PRN PRN PRN Reason: NAUSEA Phenobarbital (Phenobarbital 32.4 Mg Tablet) 97.2 mg PO Q4H PENDING SALE TO [facility]; Taper Stop: 05/29/20 21:29 Last Admin: 05/25/20 17:22 Dose: 97.2 mg Documented by: Sodium Chloride (0.9% Saline Lock 10 Ml Syringe) 10 - 40 ml IV UD PRN PRN Reason: SALINE FLUSH Thiamine HCl (Thiamine Hydrochloride 100 Mg Tablet) 100 mg PO DAILYCM PENDING SALE TO [facility] Assessment/Plan All Active Problems Alcohol dependence (Acute) Request for alcohol detox services (Acute) Acute alcohol withdrawal (Acute) #1 chronic alcoholism- patient will be admitted to [place] [id number] for alcohol detox services, orders were entered using the alcohol detox order set, patient will need to be seen by social media content manager from 180, I am not sure the patient will be able to get admitted to an inpatient facility at this late date, I am skeptical at this time that the patient will successfully undergo detox after he leaves the hospital due to the holiday time and the probable nonavailability of inpatient detox beds. Patient has been admitted here multiple times for alcohol detox, he told this examiner he did not call his AA sponsor before coming into the hospital this admission. I do not know how faithful the patient is in following up with AA. #2 chronic depression-I will start patient back on his [facility] Inpatient E&M: [id number] Init Hosp L3
[2020-05-26] VITALS (7 sets, daily range): BP systolic 106–118; BP diastolic 71–90; PULSE 70–81; RESP 16–18; TEMP 36.4–36.8; O2SAT 96–98
[2020-05-26] MEDS: Phenobarbital 32.4 MG Tablet 64.8 MG PO ×6 (01:27→21:21)
[2020-05-26] MEDS: FLUoxetine 20 MG Capsule PO (07:55)
[2020-05-26] MEDS: Thiamine Hydrochloride 100 MG Tablet PO (07:55)
[2020-05-26] MEDS: Folic Acid 1 MG Tablet PO (07:55)
--- NOTE | 2020-05-26 14:51 | CHAPLAIN ---
Type of Pastoral Visit _x__ Initial Visit ___ Follow-up Visit ___ On-call Visit ___ General Patient Visit ___ Spiritual Assessment ___ Family Conference ___ Bereavement ___ Rapid Response ___ Code Blue ___ Other (describe below) Pastoral Care Referral From _x__ Patient ___ Family ___ Nurse ___ Physician ___ Inspector Wreath ___ Hot Car Charger ___ Other (describe below) Sacrament/Intervention _x__ Active listening ___ Anointing ___ Shinto ___ Bereavement ___ Communion _x__ Loretta exploration ___ _x__ Life review _x__ Prayer ___ Reconciliation ___ Sacrament of Sick _x__ Supportive presence ___ Wedding ___ Other (describe below) Pastoral Comments
--- NOTE | 2020-05-26 18:02 | PCM.PROGNOTE ---
Patient Problems: Active and Suspected Problems Alcohol dependence (Acute) Request for alcohol detox services (Acute) Subjective: Patient was seen and examined today, he does not complain of any increased tremor or anxiety. factory process workers from [facility] will be talking with the patient tomorrow about her care plan. - Physical Exam Vitals/I&O's: Vital Signs Temp Pulse Resp BP Pulse Ox 98.2 F 70 16 113/90 H 96 05/26/20 16:36 05/26/20 16:36 05/26/20 16:36 05/26/20 16:36 05/26/20 16:36 Oxygen Delivery Method Room Air Weight: 78.839 kg Body Mass Index (BMI) 27.6 General: Alert, Oriented x3, Cooperative, No apparent distress, Well developed, Well nourished HEENT: Atraumatic, PERRLA, EOMI, Normocephalic Oral: Moist Mucosa Neck: Supple, No JVD, Trachea Midline, Thyroid Normal Size and Texture Lungs: Clear to auscultation, Normal air movement, No rhonchi, No wheeze, No rales Cardiovascular: Regular rate, Regular Rhythm, Normal S1, Normal S2, No murmurs, PMI Normal, No rub noted, No Gallop Abdomen: Bowel Sounds Present, Soft, Non Tender, Non-Distended Extremities: No clubbing, No cyanosis, No edema, Capillary Refill Less than 3 Seconds Skin: No rashes, No breakdown Musculoskeletal: No Tenderness to Palpation of Joints or Extremities Neurological: Cranial nerves II-XII grossly intact, Neuro grossly intact, Sensory exam intact to light touch and pain, Coordination normal Psych/Mental Status: Normal Affect, Appropriate, Alert and oriented to time, place, person, mood and affect Current Medications Acetaminophen (Acetaminophen 500 Mg Tablet) 500 mg PO Q4H PRN PRN PRN Reason: Temp > 100.4 F Dicyclomine HCl (Dicyclomine 10 Mg Capsule) 20 mg PO Q6H PRN PRN PRN Reason: abdominal discomfort Fluoxetine HCl (Fluoxetine 20 Mg Capsule) 20 mg PO DAILY [facility] Last Admin: 05/26/20 07:55 Dose: 20 mg Documented by: Folic Acid (Folic Acid 1 Mg Tablet) 1 mg PO DAILY@0800 [facility] Last Admin: 05/26/20 07:55 Dose: 1 mg Documented by: Sodium Chloride () 250 mls @ 15 mls/hr IV .[id number] PRN PRN Reason: Saline Flush Sodium Chloride () 250 mls @ 15 mls/hr IV .[id number] PRN PRN Reason: Additional IVPB Infusion Ibuprofen (Ibuprofen 600 Mg Tablet) 600 mg PO Q8H PRN PRN PRN Reason: Pain Score 1-10 Lorazepam (Lorazepam 1 Mg Tablet) 2 mg PO Q2H PRN PRN; Protocol PRN Reason: CIWA score > 8 but <15 Lorazepam (Lorazepam 1 Mg Tablet) 2 mg PO UD PRN; Protocol PRN Reason: CIWA score >/=15. Lorazepam (Lorazepam 2 Mg/Ml Syringe) 2 mg IV Q2H PRN PRN; Protocol PRN Reason: CIWA score > 8 but <15 Lorazepam (Lorazepam 2 Mg/Ml Syringe) 2 mg IV UD PRN; Protocol PRN Reason: CIWA score >/=15. Ondansetron HCl (Ondansetron 8 Mg Tablet) 8 mg PO Q8H PRN PRN PRN Reason: NAUSEA Phenobarbital (Phenobarbital 32.4 Mg Tablet) 97.2 mg PO Q4H JASVIR; Taper Stop: 05/29/20 21:29 Last Admin: 05/26/20 17:37 Dose: 97.2 mg Documented by: Sodium Chloride (0.9% Saline Lock 10 Ml Syringe) 10 - 40 ml IV UD PRN PRN Reason: SALINE FLUSH Thiamine HCl (Thiamine Hydrochloride 100 Mg Tablet) 100 mg PO DAILYCM JASVIR Last Admin: 05/26/20 07:55 Dose: 100 mg Documented by: Medical Necessity - Tobacco Use Smoking Status: Former smoker Tobacco Use: Non-smoker, Chew Assessment/Plan All Active Problems Alcohol dependence (Acute) Request for alcohol detox services (Acute) Acute alcohol withdrawal (Acute) #1 chronic alcoholism-patient will continue on his present medications, he will talk with the perinatal social worker from 180 tomorrow #2 chronic depression-[facility]M: [id number] [facility] Hosp L2
[2020-05-27 01:38] VITALS: BP 105/76; PULSE 71; RESP 16; TEMP 36.5; O2SAT 97
[2020-05-27] MEDS: Phenobarbital 32.4 MG Tablet 64.8 MG PO ×6 (01:40→21:30)
[2020-05-27 05:30] VITALS: BP 106/80; PULSE 65; RESP 18; TEMP 37.1; O2SAT 97
[2020-05-27 07:31] VITALS: BP 112/80; PULSE 67; RESP 16; TEMP 36.6; O2SAT 96
[2020-05-27] MEDS: Thiamine Hydrochloride 100 MG Tablet PO (07:36)
[2020-05-27] MEDS: Folic Acid 1 MG Tablet PO (07:36)
[2020-05-27] MEDS: FLUoxetine 20 MG Capsule PO (09:22)
[2020-05-27 11:18] VITALS: BP 101/67; PULSE 73; RESP 18; TEMP 36.7; O2SAT 95
[2020-05-27 15:34] VITALS: BP 116/83; PULSE 75; RESP 16; TEMP 36.5; O2SAT 94
--- NOTE | 2020-05-27 20:37 | PCM.PROGNOTE ---
Patient Problems: Active and Suspected Problems Alcohol dependence (Acute) Request for alcohol detox services (Acute) Subjective: She was seen and examined today, he denies any tremor or nervousness at this time, he states he is talked with an inpatient facility who has agreed to take him when he is through with detox here. I told him my plan was to reevaluate him tomorrow morning?if he was stable he would be discharged-patient was okay with this plan - Physical Exam Vitals/I&O's: Vital Signs Temp Pulse Resp BP Pulse Ox 97.7 F L 75 16 116/83 H 94 05/27/20 15:34 05/27/20 15:34 05/27/20 15:34 05/27/20 15:34 05/27/20 15:34 Oxygen Delivery Method Room Air Weight: 78.839 kg Body Mass Index (BMI) 27.6 General: Alert, Oriented x3, Cooperative, No apparent distress, Well developed, Well nourished HEENT: Atraumatic, PERRLA, EOMI, Normocephalic Neck: Supple, No JVD, Trachea Midline, Thyroid Normal Size and Texture Lungs: Clear to auscultation, Normal air movement, No rhonchi, No wheeze, No rales Cardiovascular: Regular rate, Regular Rhythm, Normal S1, Normal S2, No murmurs Abdomen: Bowel Sounds Present, Soft, Non Tender, Non-Distended Extremities: No clubbing, No cyanosis, No edema, Capillary Refill Less than 3 Seconds Skin: No rashes, No breakdown Musculoskeletal: No Tenderness to Palpation of Joints or Extremities Neurological: Cranial nerves II-XII grossly intact, Neuro grossly intact, Motor Exam 5/5 strength throughout, Sensory exam intact to light touch and pain, Coordination normal Psych/Mental Status: Normal Affect, Appropriate, Alert and oriented to time, place, person, mood and affect Current Medications Acetaminophen (Acetaminophen 500 Mg Tablet) 500 mg PO Q4H PRN PRN PRN Reason: Temp > 100.4 F Dicyclomine HCl (Dicyclomine 10 Mg Capsule) 20 mg PO Q6H PRN PRN PRN Reason: abdominal discomfort Fluoxetine HCl (Fluoxetine 20 Mg Capsule) 20 mg PO DAILY FORMERLY [facility], [facility] Last Admin: 05/27/20 09:22 Dose: 20 mg Documented by: Folic Acid (Folic Acid 1 Mg Tablet) 1 mg PO DAILY@0800 FORMERLY [facility], [facility] Last Admin: 05/27/20 07:36 Dose: 1 mg Documented by: Sodium Chloride () 250 mls @ 15 mls/hr IV .[id number] PRN PRN Reason: Saline Flush Sodium Chloride () 250 mls @ 15 mls/hr IV .[id number] PRN PRN Reason: Additional IVPB Infusion Ibuprofen (Ibuprofen 600 Mg Tablet) 600 mg PO Q8H PRN PRN PRN Reason: Pain Score 1-10 Lorazepam (Lorazepam 1 Mg Tablet) 2 mg PO Q2H PRN PRN; Protocol PRN Reason: CIWA score > 8 but <15 Lorazepam (Lorazepam 1 Mg Tablet) 2 mg PO UD PRN; Protocol PRN Reason: CIWA score >/=15. Lorazepam (Lorazepam 2 Mg/Ml Syringe) 2 mg IV Q2H PRN PRN; Protocol PRN Reason: CIWA score > 8 but <15 Lorazepam (Lorazepam 2 Mg/Ml Syringe) 2 mg IV UD PRN; Protocol PRN Reason: CIWA score >/=15. Ondansetron HCl (Ondansetron 8 Mg Tablet) 8 mg PO Q8H PRN PRN PRN Reason: NAUSEA Phenobarbital (Phenobarbital 32.4 Mg Tablet) 64.8 mg PO Q4H FOR[facility]LY [facility], [facility]; Taper Stop: 05/29/20 21:29 Last Admin: 05/27/20 17:13 Dose: 64.8 mg Documented by: Sodium Chloride (0.9% Saline Lock 10 Ml Syringe) 10 - 40 ml IV UD PRN PRN Reason: SALINE FLUSH Thiamine HCl (Thiamine Hydrochloride 100 Mg Tablet) 100 mg PO DAILYCM FOR[facility], [facility] Last Admin: 05/27/20 07:36 Dose: 100 mg Documented by: Medical Necessity - Tobacco Use Smoking Status: Former smoker Tobacco Use: Non-smoker, Chew Assessment/Plan All Active Problems Alcohol dependence (Acute) Request for alcohol detox services (Acute) Acute alcohol withdrawal (Acute) #1 chronic alcoholism-patient will continue on his present medications, again he has relayed to me that he has been accepted at a detox facility in [facility], I will reevaluate the patient in the morning for possible discharge. #2 chronic depression-patient currently on [facility] Inpatient E&M: [id number] [facility] Hosp L2
[2020-05-27 21:30] VITALS: BP 116/85; PULSE 67; RESP 16; TEMP 36.6; O2SAT 97
[2020-05-28 03:35] VITALS: BP 100/69; PULSE 65; RESP 16; TEMP 36.6; O2SAT 94
[2020-05-28] MEDS: Phenobarbital 32.4 MG Tablet 64.8 MG PO ×2 (03:39→10:00)
[2020-05-28 08:00] VITALS: BP 100/74; PULSE 79; RESP 14; TEMP 36.6; O2SAT 97
[2020-05-28] MEDS: FLUoxetine 20 MG Capsule PO (08:06)
[2020-05-28] MEDS: Thiamine Hydrochloride 100 MG Tablet PO (08:06)
[2020-05-28] MEDS: Folic Acid 1 MG Tablet PO (08:06)
--- NOTE | 2020-05-28 08:08 | DCINST_ITS ---
- Discharge Diagnoses Current Active Problems: Current Active and Chronic Problems Alcoholism (Chronic) Alcohol dependence (Acute) Request for alcohol detox services (Acute) COPD (chronic obstructive pulmonary disease) (Chronic) Chronic alcoholic hepatitis (Chronic) You will use the following diet at home:: No restrictions Your food should be the consistency of: Regular Your liquids should be the consistency of: Regular/Thin Discharge Activity: Return to Normal Activity Weight Bearing Status: Full weight bearing Allergies/Adverse Reactions: Allergies oxycodone [From Percocet] Allergy (Verified 05/25/20 10:13) Hives lorazepam [From Ativan] Adverse Reaction (Verified 05/25/20 10:13) HALLUCINATIONS Medications to take at Discharge Fluticasone/Vilanterol [Breo Ellipta 100-25 Mcg INH] 1 puff INHALATION DAILY PRN PRN 11/07/19 Folic Acid 1 mg PO DAILY@0800 #30 tab 02/11/20 Thiamine Hydrochloride [Vitamin B1] 100 mg PO DAILYCM #30 tab 02/11/20 Multivitamin with Minerals [Multiple Vitamin] 1 ea PO DAILY 05/25/20 Fluoxetine [Prozac] 20 mg PO DAILY #30 cap 05/28/20 The following prescriptions were given: Fluoxetine [Prozac] 20 mg PO DAILY #30 cap Prescription Printed Primary Care Physician: Care Physician,No Primary [NON-STAFF] - Test Results: Test results from this visit will be discussed in further detail at your follow- up appointment, if applicable. Please Follow Up With: inpatient detox
--- NOTE | 2020-05-28 09:09 | CASEMGMT ---
Social Work Note SW placed a call to Robin at [facility] and left message for update regarding discharge plans, there is no paperwork on pt's chart from [facility]. CHAIM waiting for call back. Aminah Bermeo [employer], CAR SUPERVISOR
--- NOTE | 2020-05-30 18:24 | DS.PCM_ITS ---
Discharge Date and Diagnosis - Problem List Patient Problems: Active and Suspected Problems Alcohol dependence (Acute) Request for alcohol detox services (Acute) Date of Admission: 05/25/20 Date of Discharge: 05/28/20 - Primary Discharge Diagnosis Acute Problems: Active Problems #1 chronic alcoholism #2 chronic depression - Secondary Discharge Diagnosis Chronic Problems: Chronic Problems Alcoholism (Chronic) Alcohol abuse (Chronic) COPD (chronic obstructive pulmonary disease) (Chronic) Former tobacco use (Chronic) Thrombocytopenia (Chronic) Chronic alcoholic hepatitis (Chronic) Hospital Course and Treatment Operations: None Procedures: None Summary of Care Provided: The patient is a 65 year old M seen in the emergency room at [facility] requesting services for alcohol detox. Patient has a long history of drinking and had been through multiple admissions for alcohol detox. Lab obtained on admission showed 2 elevated liver enzymes, ethyl alcohol level was 94. Patient was admitted to [place] [address], orders were entered using the alcohol detox order set. Patient had no serious withdrawal symptoms during his hospitalization, he told this examiner that he had contacted an inpatient detox center prior to his coming to the emergency room and was told to follow-up when he got released from [facility]. Unfortunately there is no verification from outside sources of this contact. On 05/28/2020, patient was seen and examined: On examination he appeared in good health and spirits. Vital signs as documented. Skin warm and dry and without overt rashes. Neck without JVD, neck was supple, trachea midline, thyroid was normal. Lungs clear bilaterally, normal air movement was noted. Heart exam notable for regular rhythm, normal sounds and absence of murmurs, rubs or gallops. Abdomen unremarkable and without evidence of organomegaly, masses, or abdominal aortic enlargement. Bowel sounds are present, abdomen is not distended. Extremities nonedematous, no cyanosis was noted, no clubbing was noted. Neuro: Cranial nerves II through XII are grossly intact, no focal motor deficits were noted, sensation to light touch and pinprick intact, motor exam 5/5 throughout. Psych: Patient is alert and oriented x3, he does not appear anxious or depressed, he does not appear agitated. On 05/28/2020, patient was seen and examined and felt to be in stable condition for discharge. Patient Problems: Active and Suspected Problems Alcohol dependence (Acute) Request for alcohol detox services (Acute) - Physical Exam Vitals/I&O's: Vital Signs Temp Pulse Resp BP Pulse Ox 97.8 F 79 14 100/74 97 05/28/20 08:00 05/28/20 08:00 05/28/20 08:00 05/28/20 08:00 05/28/20 08:00 Oxygen Delivery Method Room Air Weight: 78.839 kg Body Mass Index (BMI) 27.6 Discharge Activity: Return to Normal Activity Weight Bearing Status: Full weight bearing Home Medications: Medications to take at Discharge Fluticasone/Vilanterol [Breo Ellipta 100-25 Mcg INH] 1 puff INHALATION DAILY PRN PRN 11/07/19 Folic Acid 1 mg PO DAILY@0800 #30 tab 02/11/20 Thiamine Hydrochloride [Vitamin B1] 100 mg PO DAILYCM #30 tab 02/11/20 Multivitamin with Minerals [Multiple Vitamin] 1 ea PO DAILY 05/25/20 Fluoxetine [Prozac] 20 mg PO DAILY #30 cap 05/28/20 Following Prescriptions Were Given to Patient: Fluoxetine [Prozac] 20 mg PO DAILY #30 cap Prescription Printed Primary Care Physician: Care Physician,No Primary [NON-STAFF] - Please Follow Up With: inpatient detox Disposition: Home Minutes spent on discharge:: 31 Patient Condition:: Stable Medical Necessity - Tobacco Use Smoking Status: Former smoker Tobacco Use: Non-smoker, Chew Meaningful Use Info Meaningful Use Diagnoses (Choose all that apply): None applicable Inpatient E&M: 46712 Disch Hosp
== END 2020-05-28 11:56 | disposition home or self-care (01) | DRG 897 ==
LOC: ED 11:16 → MS3 12:00
PROVIDERS: Admitting Provider Internal Medicine; Emergency Provider Emergency Medicine; PCP Nurse Practitioner Family; Visit Provider Internal Medicine
DX: F10.20 Alcohol dependence, uncomplicated (principal); K70.10 Alcoholic hepatitis without ascites; Y90.4 Blood alcohol level of 80-99 mg/100 ml; F32.9 Major depressive disorder, single episode, unspecified; J44.9 Chronic obstructive pulmonary disease, unspecified; D69.6 Thrombocytopenia, unspecified; Z87.891 Personal history of nicotine dependence
CPT/HCPCS: 80053; 80307; 80320; 85025; 85610; 99283; J7030; A4216; G0480

== ENCOUNTER 2022-03-05 10:26 | Inpatient (IN) | payer MEDICARE, BC, SELFPAY ==
[2022-03-05] VITALS (7 sets, daily range): BP systolic 99–134; BP diastolic 85–92; PULSE 81–96; RESP 14–18; TEMP 36.4–37.1; O2SAT 90–97; BMI 29.2; BMI 34.4
--- NOTE | 2022-03-05 10:39 | EDS_ITS ---
HPI History of Present Illness Chief Complaint: ETOH Intox Narrative Narrative: 67-year-old male presenting for alcohol detox. He states that he has been drinking for the last 4 weeks. He initially detoxed prior to this and was doing well but started drinking beer and then reportedly started drinking some moonshine. Currently he is drinking 2 L of 40 proof vodka daily. He states his last drink was on his way to the hospital. He states that he does get severe withdrawal symptoms but does not have withdrawal seizures. Patient states he is a little bit nauseous but is not in pain. He has been otherwise healthy. PFSH PFSH Home Medications folic acid 1 mg tablet 1 mg PO DAILY@0800 #30 tabs 02/11/20 [Rx Last Taken 05/25/20] fluoxetine 20 mg capsule 20 mg PO DAILY #30 caps 05/28/20 [Rx Last Taken Unknown] albuterol sulfate 90 mcg/actuation aerosol inhaler 2 puff inhalation Q6H PRN PRN Wheezing 03/05/22 [History Last Taken Unknown] budesonide-formoterol HFA 80 mcg-4.5 mcg/actuation aerosol inhaler (Symbicort) 2 puff inhalation BID 03/05/22 [History Last Taken Unknown] Allergy/AdvReac Type Severity Reaction Status Date / Time oxycodone [From Percocet] Allergy Hives Verified 03/05/22 10:27 lorazepam [From Ativan] AdvReac HALLUCINATI Verified 03/05/22 10:27 ONS Social History Smoking Status: Former smoker ROS ROS ED Constitutional Constitutional ED: Denies chills or fever(s) Eyes Eyes: Denies change in vision ENT ENT ED: Denies rhinorrhea or sore throat Cardiovascular Cardiovascular: Denies chest pain or palpitations Respiratory/Chest Respiratory/Chest: Denies cough or dyspnea Gastrointestinal Gastrointestinal: Reports nausea; Denies abdominal pain Genitourinary Genitourinary ED: Denies dysuria Musculoskeletal Musculoskeletal: Denies arthralgias or back pain Integumentary Denies abscess or Abrasions Neurologic Neurologic: Denies headache(s) or paresthesias Psychiatric Psychiatric: Denies anxiety, depression, suicidal ideation or suicidal thoughts EXAM Physical Exam Const Vital Signs: 03/05/22 10:28 03/05/22 10:55 Temperature 97.6 F L 98.4 F Temperature Source Temporal Temporal Pulse Rate 88 84 Respiratory Rate 18 18 Blood Pressure 126/92 H 123/87 H Blood Pressure Mean 103 99 Blood Pressure Position Semi-Fowlers Blood Pressure Location Right Arm Pulse Ox 92 90 Oxygen Delivery Method Room Air Room Air Positive well nourished General Appearance ED: NAD; Negative for pallor HEENT Reports moist mucous membranes atraumatic Eyes PERRL and EOMs intact bilaterally General Eye ED: Negative for pale conjunctiva or scleral icterus Resp normal respiratory effort and clear to auscultation bilaterally Auscultation: Negative for rales, rhonchi or wheezes Cardio regular rate and regular rhythm GI soft to palpation and non-tender Neuro oriented x3 and CN's II-XII intact bilaterally Sensorium / Orientation: alert Speech: speech normal Psych mental status grossly normal and thought process normal Skin General Skin Exam: Negative for jaundice or pallor MDM MDM MDM Narrative Medical decision making narrative: Patient seen and evaluated on arrival. Vital signs are stable and he is afebrile. He has a little bit of nausea but he does not feel as if he is withdrawing. His alcohol was drawn and is 371. CBC does not show any leukocytosis. His platelet count is low at 140 but this is chronic. Hemoglobin stable at 14. Renal function and electrolytes unremarkable. AST slightly elevated at 167 and ALT is 93. Urine drug screen is pending. I spoke with hospitalist for admission. Impression: 1. Nausea 2. EtOH abuse 3. Presentation for EtOH detox 4. thrombocytopenia Lab Data Attestation: I reviewed the patient's lab results. Labs: Laboratory Results - last 24 hr 03/05/22 03/05/22 03/05/22 10:50 10:50 10:50 WBC 6.2 RBC 4.28 L Hgb 14.0 Hct 41.0 MCV 95.8 H MCH 32.7 H MCHC 34.1 RDW Std Deviation 49.7 H RDW Coeff of Klarissa 14.3 Plt Count 140 L MPV 9.6 Immature Gran % (Auto) 0.300 Neut % (Auto) 58.9 Lymph % (Auto) 24.7 [place] % (Auto) 13.2 H Eos % (Auto) 1.9 Baso % (Auto) 1.0 Absolute Neuts (auto) 3.7 Absolute Lymphs (auto) 1.54 Nucleated RBC % 0 Sodium 133 L Potassium 4.6 Chloride 95 L Carbon Dioxide 23.0 Anion Gap 15 BUN 13 Creatinine 1.18 Estim Creat Clear Calc 58.35 Est GFR (MDRD) Af Amer 80 Est GFR (MDRD) Non-Af 66 BUN/Creatinine Ratio 11.0 Glucose 91 Calcium 8.8 Total Bilirubin 0.60 AST 167 H ALT 93 H Alkaline Phosphatase 65 Total Protein 8.4 H Albumin 3.7 Globulin 4.7 H Albumin/Globulin Ratio 0.8 L Lipase 136 Ethyl Alcohol 371.0 H* Discharge Plan Triage Chief Complaint: ETOH Intox Other Complaint: Substance Abuse ED Provider: Ted Rios Dx/Rx/DC Orders Prescriptions: No Action folic acid 1 MG tablet 1 mg PO DAILY@0800 Qty: 30 0RF fluoxetine 20 MG capsule 20 mg PO DAILY Qty: 30 0RF albuterol sulfate 90 mcg/actuation HFA aerosol inhaler 2 puff INHALATION Q6H PRN PRN (Reason: Wheezing) Label Comments: INHALE 2 PUFFS BY MOUTH EVERY 6 HOURS NEEDED FOR WHEEZING budesonide-formoterol [Symbicort] 80-4.5 mcg/actuation HFA aerosol inhaler 2 puff INHALATION BID Label Comments: INHALE 2 PUFFS BY MOUTH TWICE DAILY Primary Care Provider: Luca Barrera Referrals: NOT,DEFINED [Non-Staff] -
[2022-03-05] MEDS: Ondansetron 4 MG/2 ML Vial IV (10:49)
[2022-03-05 10:55] LABS: Absolute Lymphocyte Count 1.54 X10^3/uL (0.83-4.51); Absolute Neutrophil Count 3.7 X10^3/uL (2.0-7.7); Basophil# 0.06 X10^3/uL; Eosinophil# 0.12 X10^3/uL; Eosinophils% 1.9 % (0-5); Lymphocyte # 1.54 X10^3/ul (0.83-4.51); Lymphocyte % 24.7 % (19-41); Mean Corp Hgb Conc 34.1 g/dL (32-36); Mean Corpuscular Hgb 32.7 pg (27.0-32.0); Mean Corpuscular Volume 95.8 fL (80-94); Mean Platelet Vol. 9.6 fl (6.2-12.0); Monocyte# 0.82 X10^3/uL; Monocyte% 13.2 % (0-10); NRBC Flagged by Analyzer 0 % (0-5); Neutrophil # 3.67 X10^3/uL (2.7-7.7); Neutrophil % 58.9 % (47-70); Platelet Count 140 K/mm3 (150-450); RBC Distribution Width CV 14.3 % (11.6-14.6); RBC Distribution Width SD 49.7 fl (35.1-43.9); Red Blood Count 4.28 M/mm3 (4.6-6.2); White Blood Count 6.2 K/mm3 (4.4-11.0)
[2022-03-05 11:13] LABS: ALB/GLOB Ratio 0.8 RATIO (0.9-2.4); AST(SGOT) 167 U/L (15-37); Alanine Aminotransfer ALT/SGPT 93 U/L (16-61); Albumin, Serum 3.7 g/dL (3.2-5.0); Alkaline Phosphatase 65 U/L (45-117); Anion Gap 15 (5-15); BUN 13 mg/dL (7-18); Calcium,Total 8.8 mg/dL (8.5-10.1); Chloride 95 mmol/L (98-107); Creatinine, Serum 1.18 mg/dL (0.70-1.30); EST Glomerular Filtration Rate 66 mL/min (>60); Est Glom Filt Rate - Afr Amer 80 mL/min (>60); Estimated Creatinine Clearance 58.35 ml/min; Globulin 4.7 g/dL (2.2-4.2); Glucose 91 mg/dL (74-106); Lipase 136 U/L (73-393); Potassium 4.6 mmol/L (3.5-5.1); Protein, Total 8.4 g/dL (6.4-8.2); Sodium Level 133 mmol/L (136-145)
--- NOTE | 2022-03-05 12:05 | HP.PCM.HOS_ITS ---
HPI - General General Date of Admission: 03/05/22 Date of Service: 03/05/22 Chief Complaint: Request for medical stabilization from acute alcohol withdrawal HPI Narrative ANTONI COLBERT, is a 67 M who presents with the above. Patient states he drinks about a 2 L of vodka daily. Last drink was a couple of hours ago. He request for medical stabilization from alcohol. He denied any history of alcohol withdrawal seizures in the past. Vital signs the ED showed blood pressure 126/92, heart rate 88, respiratory rate 18, temperature 97.6 F, oxygen sat 92% on room air. WBC count 6.2, hemoglobin 14.0, platelet count 140. Sodium 133, potassium 4.6, chloride 95, bicarb 23, BUN 13, creatinine 1.18, AST 167, ALT 93. Patient's admitting alcohol level was 371. [facility] Home Medications folic acid 1 mg tablet 1 mg PO DAILY@0800 #30 tabs 02/11/20 [Rx Last Taken 05/25/20] fluoxetine 20 mg capsule 20 mg PO DAILY #30 caps 05/28/20 [Rx Last Taken Unknown] albuterol sulfate 90 mcg/actuation aerosol inhaler 2 puff inhalation Q6H PRN PRN Wheezing 03/05/22 [History Last Taken Unknown] budesonide-formoterol HFA 80 mcg-4.5 mcg/actuation aerosol inhaler (Symbicort) 2 puff inhalation BID 03/05/22 [History Last Taken Unknown] Allergy/AdvReac Type Severity Reaction Status Date / Time oxycodone [From Percocet] Allergy Hives Verified 03/05/22 10:27 lorazepam [From Ativan] AdvReac HALLUCINATI Verified 03/05/22 10:27 ONS Family History (Updated 03/05/22 @ 15:[address] Leila Rose MD) Mother COPD (chronic obstructive pulmonary disease) Father Cancer cancer of the throat Surgical History (Updated 03/05/22 @ 15:[address] Leila Rose MD) History of arthroscopic surgery of shoulder History of back surgery History of total hip replacement Social History (Updated 03/05/22 @ 15:[address] Leila Rose MD) household members: family Smoking Status: Former smoker alcohol intake: current substance use type: does not use ROS ROS Narrative Constitutional: Denies: Anorexia, Chills, Fever, Night Sweats, Weight Change Eyes: Denies: Blurred vision, Cataracts, Conjunctivae Inflammation, Pain, Redness, Vision Change HEENT: Denies: Difficulty Hearing, Difficulty Swallowing, Head Aches, Hearing Changes, Sinus Congestion, Sinus Drainage Cardiovascular: Denies: Chest Pain, Orthopnea, Palpitations Respiratory: Denies: Cough, Shortness of breath at rest, Sputum production Gastrointestinal: Denies: Abdominal Pain, Nausea, Vomiting Genitourinary: Denies: Dysuria Musculoskeletal: Denies: Joint Pain, Joint stiffness, Joint swelling, Joint Tenderness Skin: Denies: Rash, Wounds Neurological: Denies: Numbness, Tingling, Focal weakness Vital Signs Vital Signs Vital Signs: 03/05/22 10:28 03/05/22 10:55 Temperature 97.6 F L 98.4 F Temperature Source Temporal Temporal Pulse Rate 88 84 Respiratory Rate 18 18 Blood Pressure 126/92 H 123/87 H Blood Pressure Mean 103 99 Blood Pressure Position Semi-Fowlers Blood Pressure Location Right Arm Pulse Ox 92 90 Oxygen Delivery Method Room Air Room Air Weight Weight: 84.822 kg Body Mass Index (BMI) 29.2 Physical Exam Narrative Physical exam: General: Alert, Oriented x3, Cooperative, No apparent distress HEENT: Atraumatic Oral: Moist Mucosa Neck: Supple Lungs: Clear to auscultation Cardiovascular: HS I+II, regular, no murmurs Abdomen: Bowel Sounds Present, Soft, Non Tender Extremities: No edema Skin: No rashes, No breakdown Neurological: Grossly intact Psych/Mental Status: Appropriate Results Lab / Micro Data Result Diagrams: 03/05/22 10:50 03/05/22 10:50 Labs: Laboratory Results - last 24 hr 03/05/22 10:50: WBC 6.2, RBC 4.28 L, Hgb 14.0, Hct 41.0, MCV 95.8 H, MCH 32.7 H, MCHC 34.1, RDW Std Deviation 49.7 H, RDW Coeff of Klarissa 14.3, Plt Count 140 L, MPV 9.6, Immature Gran % (Auto) 0.300, Neut % (Auto) 58.9, Lymph % (Auto) 24.7, [place] % (Auto) 13.2 H, Eos % (Auto) 1.9, Baso % (Auto) 1.0, Absolute Neuts (auto) 3.7, Absolute Lymphs (auto) 1.54, Nucleated RBC % 0 03/05/22 10:50: Sodium 133 L, Potassium 4.6, Chloride 95 L, Carbon Dioxide 23.0, Anion Gap 15, BUN 13, Creatinine 1.18, Estim Creat Clear Calc 58.35, Est GFR (MDRD) Af Amer 80, Est GFR (MDRD) Non-Af 66, BUN/Creatinine Ratio 11.0, Glucose 91, Calcium 8.8, Total Bilirubin 0.60, AST 167 H, ALT 93 H, Alkaline Phosphatase 65, Total Protein 8.4 H, Albumin 3.7, Globulin 4.7 H, Albumin/Globulin Ratio 0.8 L, Lipase 136 03/05/22 10:50: Ethyl Alcohol 371.0 H* Assessment & Plan Assessment/Plan (1) Request for alcohol detox services: PLAN: Plan 1. Request for Acute alcohol withdrawal, will continue to monitor alcohol withdrawal protocol 2. Nicotine dependence, advised to quit, will continue on replacement 3. COPD, not in acute exacerbation, will continue with prn breathing treatments 4. Chronic pancytopenia,stable 5. Elevated LFTs, chronic, likely secondary to chronic alcohol abuse We will continue to trend 6. DVT prophylaxis; SCDs on account of thrombocytopenia Charges/Coding Visit Charges Inpatient E&M: 64062 Subs Hosp L2
--- NOTE | 2022-03-05 12:59 | NURSING ---
[address] [facility] ETOH DETOX
[2022-03-05] MEDS: Phenobarbital 32.4 MG Tablet 64.8 MG PO ×3 (15:19→23:13)
[2022-03-05] MEDS: Albuterol 2.5 MG/3 ML VIAL.NEB. INHALATION (19:16)
[2022-03-05] MEDS: Budesonide Respules 0.5 MG/2 ML AMPUL.NEB. INHALATION (19:17)
[2022-03-06] VITALS (8 sets, daily range): BP systolic 129–149; BP diastolic 83–98; PULSE 76–87; RESP 16–18; TEMP 36.6–37; O2SAT 91–96
[2022-03-06] MEDS: Phenobarbital 32.4 MG Tablet 64.8 MG PO ×6 (02:43→22:34)
[2022-03-06 05:13] LABS: Absolute Lymphocyte Count 0.89 X10^3/uL (0.83-4.51); Absolute Neutrophil Count 2.4 X10^3/uL (2.0-7.7); Basophil# 0.05 X10^3/uL; Basophil% 1.2 % (0-1); Eosinophil# 0.11 X10^3/uL; Eosinophils% 2.7 % (0-5); Hematocrit 41.1 % (40-54); Hemoglobin 13.6 g/dL (13.0-16.5); Lymphocyte # 0.89 X10^3/ul (0.83-4.51); Mean Corp Hgb Conc 33.1 g/dL (32-36); Mean Corpuscular Hgb 32.2 pg (27.0-32.0); Mean Corpuscular Volume 97.4 fL (80-94); Mean Platelet Vol. 9.5 fl (6.2-12.0); Monocyte# 0.58 X10^3/uL; Monocyte% 14.3 % (0-10); NRBC Flagged by Analyzer 0 % (0-5); Neutrophil # 2.41 X10^3/uL (2.7-7.7); Neutrophil % 59.6 % (47-70); Platelet Count 112 K/mm3 (150-450); RBC Distribution Width CV 14.4 % (11.6-14.6); RBC Distribution Width SD 51.4 fl (35.1-43.9); Red Blood Count 4.22 M/mm3 (4.6-6.2); White Blood Count 4.1 K/mm3 (4.4-11.0)
[2022-03-06 05:45] LABS: ALB/GLOB Ratio 0.8 RATIO (0.9-2.4); AST(SGOT) 136 U/L (15-37); Alanine Aminotransfer ALT/SGPT 86 U/L (16-61); Albumin, Serum 3.5 g/dL (3.2-5.0); Alkaline Phosphatase 61 U/L (45-117); Anion Gap 13 (5-15); BUN 16 mg/dL (7-18); BUN/Creat Ratio 12.6 RATIO (10-20); Calcium,Total 9.2 mg/dL (8.5-10.1); Chloride 97 mmol/L (98-107); Creatinine, Serum 1.27 mg/dL (0.70-1.30); EST Glomerular Filtration Rate 61 mL/min (>60); Est Glom Filt Rate - Afr Amer 73 mL/min (>60); Estimated Creatinine Clearance 54.22 ml/min; Globulin 4.5 g/dL (2.2-4.2); Glucose 127 mg/dL (74-106); Potassium 4.1 mmol/L (3.5-5.1); Sodium Level 136 mmol/L (136-145)
[2022-03-06] MEDS: Albuterol 2.5 MG/3 ML VIAL.NEB. INHALATION ×3 (07:31→20:00)
[2022-03-06] MEDS: Budesonide Respules 0.5 MG/2 ML AMPUL.NEB. INHALATION ×2 (07:31→20:00)
--- NOTE | 2022-03-06 10:03 | PN.HOSP_ITS ---
Subjective Subjective Follow-up on acute alcohol withdrawal,: Patient was seen and examined. He complains of slight tremors. No other events overnight. Objective Data Objective Data Vital Signs: Vital Signs Temp Pulse Resp BP Pulse Ox O2 Del Method O2 Flow Rate 98.2 F 87 18 131/83 H 91 Room Air 1.5 03/06/22 02:44 03/06/22 02:44 03/06/22 02:44 03/06/22 02:44 03/06/22 02:44 03/06/22 07:39 03/05/22 23:08 Oxygen Flow Rate (L/min) 1.5 Oxygen Delivery Method Room Air Weight: 99.8 kg Body Mass Index (BMI) 34.4 Intake & Output: Intake and Output for Last 24 Hours 03/04/22 03/05/22 03/06/22 23:59 23:59 23:59 Intake Total 240 / 240 Balance 240 / 240 Lab / Micro Data Result Diagrams: 03/06/22 04:43 03/06/22 04:43 Labs: Laboratory Results - last 24 hr 03/05/22 10:50: WBC 6.2, RBC 4.28 L, Hgb 14.0, Hct 41.0, MCV 95.8 H, MCH 32.7 H, MCHC 34.1, RDW Std Deviation 49.7 H, RDW Coeff of Klarissa 14.3, Plt Count 140 L, MPV 9.6, Immature Gran % (Auto) 0.300, Neut % (Auto) 58.9, Lymph % (Auto) 24.7, [place] % (Auto) 13.2 H, Eos % (Auto) 1.9, Baso % (Auto) 1.0, Absolute Neuts (auto) 3.7, Absolute Lymphs (auto) 1.54, Nucleated RBC % 0 03/05/22 10:50: Sodium 133 L, Potassium 4.6, Chloride 95 L, Carbon Dioxide 23.0, Anion Gap 15, BUN 13, Creatinine 1.18, Estim Creat Clear Calc 58.35, Est GFR (MDRD) Af Amer 80, Est GFR (MDRD) Non-Af 66, BUN/Creatinine Ratio 11.0, Glucose 91, Calcium 8.8, Total Bilirubin 0.60, AST 167 H, ALT 93 H, Alkaline Phosphatase 65, Total Protein 8.4 H, Albumin 3.7, Globulin 4.7 H, Albumin/Globulin Ratio 0.8 L, Lipase 136 03/05/22 10:50: Ethyl Alcohol 371.0 H* 03/06/22 04:43: WBC 4.1 L, RBC 4.22 L, Hgb 13.6, Hct 41.1, MCV 97.4 H, MCH 32.2 H, MCHC 33.1, RDW Std Deviation 51.4 H, RDW Coeff of Klarissa 14.4, Plt Count 112 L, MPV 9.5, Immature Gran % (Auto) 0.200, Neut % (Auto) 59.6, Lymph % (Auto) 22.0, [place] % (Auto) 14.3 H, Eos % (Auto) 2.7, Baso % (Auto) 1.2 H, Absolute Neuts (auto) 2.4, Absolute Lymphs (auto) 0.89, Nucleated RBC % 0 03/06/22 04:43: Sodium 136, Potassium 4.1, Chloride 97 L, Carbon Dioxide 26.0, Anion Gap 13, BUN 16, Creatinine 1.27, Estim Creat Clear Calc 54.22, Est GFR (MDRD) Af Amer 73, Est GFR (MDRD) Non-Af 61, BUN/Creatinine Ratio 12.6, Glucose 127 H, Calcium 9.2, Total Bilirubin 0.80, AST 136 H, ALT 86 H, Alkaline Phosphatase 61, Total Protein 8.0, Albumin 3.5, Globulin 4.5 H, Albumin/Globulin Ratio 0.8 L Physical Exam Narrative Physical exam: General: Alert, Oriented x3, Cooperative, No apparent distress HEENT: Atraumatic Oral: Moist Mucosa Neck: Supple Lungs: Clear to auscultation Cardiovascular: HS I+II, regular, no murmurs Abdomen: Bowel Sounds Present, Soft, Non Tender Extremities: No edema Skin: No rashes, No breakdown Neurological: Grossly intact Psych/Mental Status: Appropriate Assessment & Plan Assessment/Plan (1) Request for alcohol detox services: PLAN: Plan 1. Acute alcohol withdrawal, CIWA score is 5, Continue to monitor on phenobarb alcohol withdrawal protocol 2. Nicotine dependence, advised to quit, will continue on replacement 3. COPD, not in acute exacerbation, will continue with prn breathing treatments 4. Chronic pancytopenia,stable 5. Elevated LFTs, chronic, likely secondary to chronic alcohol abuse Will get USG of the liver Repeat blood work in am 6. DVT prophylaxis; SCDs on account of thrombocytopenia Charges/Coding Visit Charges Inpatient E&M: 79650 Subs Hosp L2
[2022-03-06] MEDS: Thiamine Hydrochloride 100 MG Tablet PO (10:22)
[2022-03-06] MEDS: FLUoxetine 20 MG Capsule PO (10:22)
[2022-03-06] MEDS: Folic Acid 1 MG Tablet PO (10:22)
[2022-03-06 13:43] LABS: Amphetamine Urine VISTA NEGATIVE (<1000 ng/mL); Barbiturate Urine VISTA POSITIVE (< 200 ng/mL); Benzodiazepine Urine VISTA NEGATIVE (< 200 ng/mL); Cocaine Urine VISTA NEGATIVE (< 300 ng/mL); Ecstacy Urine VISTA NEGATIVE (< 500 ng/mL); Methadone Urine VISTA NEGATIVE (< 300 ng/mL); PCP Urine VISTA NEGATIVE (< 25 ng/mL); THC Urine VISTA NEGATIVE (< 50 ng/mL); Vista UDS pH Range 5
[2022-03-06] MEDS: Loperamide 2 MG Capsule PO (15:44)
[2022-03-07] VITALS (7 sets, daily range): BP systolic 123–142; BP diastolic 88–95; PULSE 65–98; RESP 16–20; TEMP 36.4–36.7; O2SAT 94–96
--- NOTE | 2022-03-07 | US_ITS ---
STUDY: ABDOMINAL ULTRASOUND - RIGHT UPPER QUADRANT REASON FOR VISIT: Male, 67 years old alcohol abuse, abd distension TECHNIQUE: Ultrasound evaluation of the right upper quadrant was performed with real-time and static cesar-scale imaging. TECHNICAL QUALITY: Adequate. COMPARISON: None. FINDINGS: Liver: The liver is enlarged and measures 20.8 cm. There is increased echogenicity consistent with fatty infiltration. The bile ducts are within normal limits. There is hepatic color flow. The direction of portal flow is hepatopetal. There is no demonstrated mass lesion. Gallbladder: Normal distended gallbladder. The gallbladder wall measures 1.0 mm. There is a negative sonographic Kuo''s sign. There is no pericholecystic fluid. There are no gallstones. Common Bile Duct (C.B.D.): The common bile duct measures 4 mm. Pancreas: Normal size of the head, body of the pancreas. The tail portion is obscured due to overlying bowel gas. There is normal echogenicity of the pancreas. There is no demonstrated pancreatic mass or cyst. Right Kidney: Normal size of the right kidney. The right kidney measures 10.9 cm x 3.9 cm x 6.5 cm. Normal renal cortex. The right cortex measures 1.7 cm. There is no demonstrated renal mass or cyst. There is no right hydronephrosis. US/Liver IMPRESSION: Hepatomegaly and fatty infiltration of the liver. Electronically Signed: Fabricio Do MD at 13:05 EDT ,
[2022-03-07] MEDS: Phenobarbital 32.4 MG Tablet 64.8 MG PO ×6 (03:19→22:02)
[2022-03-07 06:22] LABS: ALB/GLOB Ratio 0.7 RATIO (0.9-2.4); AST(SGOT) 92 U/L (15-37); Alanine Aminotransfer ALT/SGPT 71 U/L (16-61); Albumin, Serum 3.2 g/dL (3.2-5.0); Alkaline Phosphatase 55 U/L (45-117); Anion Gap 8 (5-15); BUN 17 mg/dL (7-18); BUN/Creat Ratio 14.8 RATIO (10-20); Chloride 95 mmol/L (98-107); Creatinine, Serum 1.15 mg/dL (0.70-1.30); EST Glomerular Filtration Rate 68 mL/min (>60); Est Glom Filt Rate - Afr Amer 82 mL/min (>60); Estimated Creatinine Clearance 59.87 ml/min; Globulin 4.5 g/dL (2.2-4.2); Glucose 98 mg/dL (74-106); Potassium 3.9 mmol/L (3.5-5.1); Protein, Total 7.7 g/dL (6.4-8.2); Sodium Level 134 mmol/L (136-145)
[2022-03-07] MEDS: Budesonide Respules 0.5 MG/2 ML AMPUL.NEB. INHALATION ×2 (07:18→19:11)
[2022-03-07] MEDS: Thiamine Hydrochloride 100 MG Tablet PO (09:42)
[2022-03-07] MEDS: Folic Acid 1 MG Tablet PO (09:42)
[2022-03-07] MEDS: FLUoxetine 20 MG Capsule PO (09:42)
--- NOTE | 2022-03-07 11:42 | ADDICTION ---
This worker met with PT to conduct all addiction assessments. Pt is agreeable to inpatient treatment. This worker placed a referral with [facility] at [facility]. Currently pending approval. Will know by end of day. If approved, [facility] will provide transportation.
[2022-03-07] MEDS: Albuterol 2.5 MG/3 ML VIAL.NEB. INHALATION ×2 (12:00→19:11)
--- NOTE | 2022-03-07 12:24 | PN.HOSP_ITS ---
Subjective Subjective Patient seen and examined. He had no active complaints and had an uneventful night. History was improving. Review of systems is otherwise negative. Objective Data Objective Data Vital Signs: Vital Signs Temp Pulse Resp BP Pulse Ox O2 Del Method O2 Flow Rate 98.1 F 78 17 142/95 H 96 Room Air 1.5 03/07/22 09:08 03/07/22 12:06 03/07/22 12:06 03/07/22 09:08 03/07/22 09:08 03/07/22 09:08 03/05/22 23:08 Oxygen Flow Rate (L/min) 1.5 Oxygen Delivery Method Room Air Weight: 220 lb 0.341 oz Body Mass Index (BMI) 34.4 Intake & Output: Intake and Output for Last 24 Hours 03/05/22 03/06/22 03/07/22 23:59 23:59 23:59 Intake Total 240 / 240 480 / 480 Balance 240 / 240 480 / 480 Lab / Micro Data Result Diagrams: 03/06/22 04:43 03/07/22 04:58 Labs: Laboratory Results - last 24 hr 03/06/22 12:30: Urine Opiates Screen NEGATIVE, Urine Methadone Screen NEGATIVE, Ur Barbiturates Screen POSITIVE H, Ur Phencyclidine Scrn NEGATIVE, Ur Amphetamines Screen NEGATIVE, MDMA (Ecstasy) Screen NEGATIVE, U Benzodiazepines Scrn NEGATIVE, Urine Cocaine Screen NEGATIVE, U Cannabinoids Screen NEGATIVE, Ur Drug Screen Comment 03/07/22 04:58: Sodium 134 L, Potassium 3.9, Chloride 95 L, Carbon Dioxide 31.0, Anion Gap 8, BUN 17, Creatinine 1.15, Estim Creat Clear Calc 59.87, Est GFR (MDRD) Af Amer 82, Est GFR (MDRD) Non-Af 68, BUN/Creatinine Ratio 14.8, Glucose 98, Calcium 9.0, Total Bilirubin 1.20 H, AST 92 H, ALT 71 H, Alkaline Phosphat ase 55, Total Protein 7.7, Albumin 3.2, Globulin 4.5 H, Albumin/Globulin Ratio 0.7 L Physical Exam Const alert, oriented x3 and no apparent distress HEENT head/scalp atraumatic, moist oral mucous membranes and oropharynx normal Head and Scalp: normocephalic Mouth: oral and palatal mucosa normal Eyes PERRL, EOMs intact bilaterally and conjunctivae normal Neck no lymphadenopathy, supple and no JVD Resp normal respiratory effort, no retractions, no use of accessory muscles and clear to auscultation bilaterally Cardio regular rate, regular rhythm, S1 normal heart sound, S2 normal heart sound and no murmurs GI normal to inspection, nondistended, normoactive bowel sounds, soft to palpation, non-tender and non-distended Extremity normal to inspection, full ROM and no clubbing, cyanosis or edema Neuro oriented x3, CN's II-XII intact bilaterally, moves all extremities and no focal motor deficits Sensorium / Orientation: awake and alert Motor Exam: strength 5/5 throughout Psych affect normal Assessment & Plan Assessment/Plan (1) Acute alcohol withdrawal: PLAN: Plan #Acute alcohol withdrawal * on alcohol withdrawal protocol with phenobarbital * monitor CIWA score * on thiamine, folic acid and multivites * #COPD: not in active exacerbation. Will monitor #ELevated LFTs * Likely due to chronic alcohol abuse. * Liver ultrasound done and read is pending * #Chronic pancytopenia: Likely due to chronic alcohol abuse. Will monitor. Due to prophylaxis: SCDs. Charges/Coding Visit Charges Inpatient E&M: 01227 Subs Hosp L2
[2022-03-08 03:43] VITALS: BP 125/82; PULSE 95; RESP 16; TEMP 36.7; O2SAT 95
[2022-03-08] MEDS: Phenobarbital 32.4 MG Tablet 64.8 MG PO (05:32)
[2022-03-08 06:55] VITALS: PULSE 88; RESP 21
[2022-03-08] MEDS: Albuterol 2.5 MG/3 ML VIAL.NEB. INHALATION (07:06)
[2022-03-08] MEDS: Budesonide Respules 0.5 MG/2 ML AMPUL.NEB. INHALATION (07:07)
[2022-03-08 09:00] VITALS: O2SAT 96
[2022-03-08 09:51] VITALS: BP 108/84; PULSE 96; RESP 16; TEMP 36.7; O2SAT 96
[2022-03-08] MEDS: Thiamine Hydrochloride 100 MG Tablet PO (09:56)
[2022-03-08] MEDS: Folic Acid 1 MG Tablet PO (09:56)
[2022-03-08] MEDS: FLUoxetine 20 MG Capsule PO (09:57)
--- NOTE | 2022-03-08 10:44 | DCINST_ITS ---
Discharge Instructions Diet Discharge Diet: Low fat / Low cholesterol Activity Discharge Activity: Return to Normal Activity Weight Bearing Status: Weight bearing as tolerated Dressing / Incision Call your doctor if you observe: Fever of 101 or Higher, Shortness of breath, Swelling in the ankles and Increased palpitations (irregular heartbeat) Follow Up Care Test Results: Test results from this visit will be discussed in further detail at your follow- up appointment, if applicable. Discharge Plan Admission Admit Date/Time: 03/05/22 11:58 Primary Reason for Your Visit: acute alcohol withdrawal Attending Provider: Malissa Chowdhury Primary Care Provider: Luca Barrera Consulting Providers: Leila Rose Instructions Patient Instructions: Alcohol Withdrawal: What to Expect Discharge Orders/Prescriptions Prescriptions: Continued folic acid 1 MG tablet 1 mg PO DAILY@0800 Qty: 30 0RF fluoxetine 20 MG capsule 20 mg PO DAILY Qty: 30 0RF albuterol sulfate 90 mcg/actuation HFA aerosol inhaler 2 puff INHALATION Q6H PRN PRN (Reason: Wheezing) Label Comments: INHALE 2 PUFFS BY MOUTH EVERY 6 HOURS NEEDED FOR WHEEZING budesonide-formoterol [Symbicort] 80-4.5 mcg/actuation HFA aerosol inhaler 2 puff INHALATION BID Label Comments: INHALE 2 PUFFS BY MOUTH TWICE DAILY Referrals / Follow Up: NOT,DEFINED [Non-Staff] - uLca Barrera PA [Primary Care Provider] - Within 2 Weeks Disposition Disposition (needs filled in before D/C Order can be placed): Home, Self Care
--- NOTE | 2022-03-08 10:45 | DS.PCM_ITS ---
Providers Date of Admission: 03/05/22 Date of Discharge: 03/08/22 Primary Care Physician: CRISTOBAL Galvan Reason For Visit: REQUEST FOR MEDICAL STABILISATION Diagnosis Discharge Diagnosis (1) Acute alcohol withdrawal: Status: Acute Plan #Acute alcohol withdrawal * on alcohol withdrawal protocol with phenobarbital * monitor CIWA score * on thiamine, folic acid and multivites * #COPD: not in active exacerbation. Will monitor #ELevated LFTs * Likely due to chronic alcohol abuse. * Liver ultrasound done and read is pending * #Chronic pancytopenia: Likely due to chronic alcohol abuse. Will monitor. Due to prophylaxis: SCDs. Medications at Discharge Home Medications folic acid 1 mg tablet 1 mg PO DAILY@0800 #30 tabs 02/11/20 fluoxetine 20 mg capsule 20 mg PO DAILY #30 caps 05/28/20 albuterol sulfate 90 mcg/actuation aerosol inhaler 2 puff inhalation Q6H PRN PRN Wheezing 03/05/22 budesonide-formoterol HFA 80 mcg-4.5 mcg/actuation aerosol inhaler (Symbicort) 2 puff inhalation BID 03/05/22 Hospital Course Operations None Procedures None Summary of Care Provided Minutes Spent on Discharge: 45 Hospital Course: Patient is a 67-year-old male with a past medical history as outlined was admitted through the ED for acute alcohol withdrawal. Patient drank about 2 L of vodka daily and his last drink was about 2 hours prior to admission. On admission serum alcohol level was 371. He was admitted and managed for acute alcohol withdrawal. He was started on alcohol withdrawal protocol with phenobarbital. His liver enzymes were also mildly elevated so he had a liver ultrasound which showed an enlarged liver with fatty infiltration. Patient was counseled that his fatty liver is likely due to his excessive alcohol intake and counseled to quit. He tolerated the 3-day detox process and was discharged home on 03/08/2022. He is to follow-up with his primary care doctor within 1 to 2 weeks. Patient seen and examined prior to discharge. He had no complaints and felt well. He had an uneventful night. Review of systems otherwise negative. Labs and vitals reviewed. Home medication reviewed and reconciled. Physical Exam Const alert, oriented x3 and no apparent distress General Appearance: cooperative, comfortable and well kempt Orientation / Consciousness: awake Exam Limitations: no limitations HEENT normocephalic, head/scalp atraumatic, hearing grossly normal bilaterally, moist oral mucous membranes and oropharynx normal Mouth: oral and palatal mucosa normal Eyes PERRL, EOMs intact bilaterally and conjunctivae normal Neck no lymphadenopathy, supple and no JVD Resp normal respiratory effort, no retractions, no use of accessory muscles and clear to auscultation bilaterally Cardio regular rate, regular rhythm, S1 normal heart sound, S2 normal heart sound and no murmurs GI normal to inspection, nondistended, normoactive bowel sounds, soft to palpation, non-tender and non-distended Extremity normal to inspection, full ROM and no clubbing, cyanosis or edema Neuro oriented x3, CN's II-XII intact bilaterally, moves all extremities and no focal motor deficits Sensorium / Orientation: awake and alert Motor Exam: strength 5/5 throughout Psych affect normal Weight / BMI Weight Weight: 220 lb 0.341 oz Body Mass Index (BMI) 34.4 ABG / Lab / Microbiology Data Result Diagrams: 03/06/22 04:43 03/07/22 04:58 Radiography Diagnostic Testing: Radiology Impression Liver Ultrasound 03/07/22 00:00 IMPRESSION: Hepatomegaly and fatty infiltration of the liver. Electronically Signed: Fabricio Do MD at 13:05 EDT , D/C Instructions Discharge Diet: Low fat / Low cholesterol Weight Bearing Status: Weight bearing as tolerated Call your doctor if you observe: Fever of 101 or Higher, Shortness of breath, Swelling in the ankles and Increased palpitations (irregular heartbeat) Meaningful Use Info Meaningful Use Diagnoses (Choose all that apply): None applicable Discharge Plan Admission Admit Date/Time: 03/05/22 11:58 Primary Reason for Your Visit: acute alcohol withdrawal Attending Provider: Malissa Chowdhury Primary Care Provider: Luca Barrera Consulting Providers: Leila Rose Instructions Patient Instructions: Alcohol Withdrawal: What to Expect Discharge Orders/Prescriptions Prescriptions: Continued folic acid 1 MG tablet 1 mg PO DAILY@0800 Qty: 30 0RF fluoxetine 20 MG capsule 20 mg PO DAILY Qty: 30 0RF albuterol sulfate 90 mcg/actuation HFA aerosol inhaler 2 puff INHALATION Q6H PRN PRN (Reason: Wheezing) Label Comments: INHALE 2 PUFFS BY MOUTH EVERY 6 HOURS NEEDED FOR WHEEZING budesonide-formoterol [Symbicort] 80-4.5 mcg/actuation HFA aerosol inhaler 2 puff INHALATION BID Label Comments: INHALE 2 PUFFS BY MOUTH TWICE DAILY Referrals / Follow Up: NOT,DEFINED [Non-Staff] - Luca Barrera PA [Primary Care Provider] - Within 2 Weeks Disposition Disposition (needs filled in before D/C Order can be placed): Home, Self Care Charges/Coding Visit Charges Inpatient E&M: 18200 Disch Hosp
== END 2022-03-08 10:47 | disposition home or self-care (01) | DRG 897 ==
LOC: ED 12:01 → MS3 13:07
PROVIDERS: Admitting Provider Internal Medicine; Emergency Provider Student in an Organized Health Care Education/Training Program; Visit Provider Student in an Organized Health Care Education/Training Program
DX: F10.139 Alcohol abuse with withdrawal, unspecified (principal); D61.818 Other pancytopenia; K76.0 Fatty (change of) liver, not elsewhere classified; J44.9 Chronic obstructive pulmonary disease, unspecified; Y90.8 Blood alcohol level of 240 mg/100 ml or more; Z79.51 Long term (current) use of inhaled steroids; Z79.899 Other long term (current) drug therapy; Z87.891 Personal history of nicotine dependence
CPT/HCPCS: 36415; 76705; 80053; 80307; 82077; 83690; 85025; 94640; 97802; 99283; A4216; J2405